=== PATIENT | male | born 1965 | race Caucasian/White ===

== ENCOUNTER 2016-10-05 06:33 | Day surgery (SDC) | payer MEDICAID ==
[~2016-10-05 06:33] MED LIST: ALBUMIN HUMAN 100 ML IV PRN
[2016-10-05 07:56] LABS: HEMATOCRIT 28.5 % (37.9-51.0); HEMOGLOBIN 9.8 g/dL (13.5-17.0); HGB HCT DIFFERENCE 0.9; MEAN CORPUSCULAR HEMOGLOBIN 31.3 pg (27.0-33.4); MEAN CORPUSCULAR HGB CONC 34.3 g/dL (32.0-36.0); MEAN CORPUSCULAR VOLUME 91 fl (80-97); RED BLOOD COUNT 3.13 10^6/uL (4.35-5.55); RED CELL DISTRIBUTION WIDTH 14.6 % (11.5-14.0); WHITE BLOOD COUNT 4.2 10^3/uL (4.0-10.5)
[2016-10-05 08:07] LABS: ANION GAP 11 (5-19); BLOOD UREA NITROGEN 25 mg/dL (7-20); CALCIUM 8.5 mg/dL (8.4-10.2); CARBON DIOXIDE 25 mmol/L (22-30); CHLORIDE 98 mmol/L (98-107); CREATININE RESULT 4.88 mg/dL (0.52-1.25); GLUCOSE 97 mg/dL (75-110); POTASSIUM 4.5 mmol/L (3.6-5.0); SODIUM 133.5 mmol/L (137-145)
[2016-10-05 08:08] LABS: PROTHROMBIN TIME 15.6 SEC (11.4-15.4)
[2016-10-05 08:09] LABS: PARTIAL THROMBOPLASTIN TIME 34.5 SEC (23.5-35.8)
[2016-10-05 13:21] VITALS: BP 116/50
== END 2016-10-05 12:30 | disposition home or self-care (01) ==
LOC: RAD 06:33
PROVIDERS: ATTEND Physician Assistant
PROC: 0W9F3ZZ Drainage of Abdominal Wall, Percutaneous Approach (ICD-10-PCS; principal; 2016-10-05)
DX: K70.31 Alcoholic cirrhosis of liver with ascites (principal); K72.90 Hepatic failure, unspecified without coma; N18.6 End stage renal disease; Z99.2 Dependence on renal dialysis; Z88.0 Allergy status to penicillin
CPT/HCPCS: 36415; 85027; 85610; 85730; 80048; 49083; P9047

== ENCOUNTER 2016-11-09 05:43 | Day surgery (SDC) | payer MEDICAID ==
[2016-11-09 06:45] LABS: HEMATOCRIT 28.8 % (37.9-51.0); HEMOGLOBIN 9.9 g/dL (13.5-17.0); HGB HCT DIFFERENCE 0.9; MEAN CORPUSCULAR HEMOGLOBIN 31.3 pg (27.0-33.4); MEAN CORPUSCULAR HGB CONC 34.4 g/dL (32.0-36.0); MEAN CORPUSCULAR VOLUME 91 fl (80-97); RED BLOOD COUNT 3.16 10^6/uL (4.35-5.55); RED CELL DISTRIBUTION WIDTH 15.8 % (11.5-14.0)
[2016-11-09 06:59] LABS: BLOOD UREA NITROGEN 38 mg/dL (7-20); CREATININE RESULT 5.73 mg/dL (0.52-1.25)
[2016-11-09 07:17] LABS: PROTHROMBIN TIME 15.7 SEC (11.4-15.4)
[2016-11-09 07:18] LABS: PARTIAL THROMBOPLASTIN TIME 35.8 SEC (23.5-35.8)
[2016-11-09] MEDS ORDERED: ALBUMIN HUMAN 50 ML IV SCH (12:30)
[2016-11-09 13:16] VITALS: BP 101/66
== END 2016-11-09 12:25 | disposition home or self-care (01) ==
LOC: RAD 05:43
PROVIDERS: ATTEND Internal Medicine Gastroenterology
PROC: 0W9G3ZZ Drainage of Peritoneal Cavity, Percutaneous Approach (ICD-10-PCS; principal; 2016-11-09)
DX: K70.31 Alcoholic cirrhosis of liver with ascites (principal); N18.6 End stage renal disease; F17.210 Nicotine dependence, cigarettes, uncomplicated; Z88.0 Allergy status to penicillin
CPT/HCPCS: 36415; 84520; 82565; 85027; 85610; 85730; 49083; P9047

== ENCOUNTER 2016-11-22 10:07 | Day surgery (SDC) | payer MEDICAID ==
[2016-11-22 11:30] LABS: HEMATOCRIT 31.7 % (37.9-51.0); HEMOGLOBIN 10.9 g/dL (13.5-17.0); MEAN CORPUSCULAR HEMOGLOBIN 31.2 pg (27.0-33.4); MEAN CORPUSCULAR HGB CONC 34.3 g/dL (32.0-36.0); MEAN CORPUSCULAR VOLUME 91 fl (80-97); RED BLOOD COUNT 3.49 10^6/uL (4.35-5.55); RED CELL DISTRIBUTION WIDTH 15.5 % (11.5-14.0); WHITE BLOOD COUNT 3.6 10^3/uL (4.0-10.5)
[2016-11-22 11:37] LABS: PROTHROMBIN TIME 15.2 SEC (11.4-15.4)
[2016-11-22 11:42] LABS: PARTIAL THROMBOPLASTIN TIME 34.7 SEC (23.5-35.8)
[2016-11-22 11:50] LABS: BLOOD UREA NITROGEN 33 mg/dL (7-20); CREATININE RESULT 5.64 mg/dL (0.52-1.25)
[2016-11-22] MEDS: ALBUMIN HUMAN 50 ML IV SCH ×2 (15:10→15:30)
[2016-11-22 16:47] VITALS: BP 98/50
== END 2016-11-22 16:30 | disposition home or self-care (01) ==
LOC: RAD 10:07
PROVIDERS: ATTEND Internal Medicine Gastroenterology
PROC: 0W9G3ZZ Drainage of Peritoneal Cavity, Percutaneous Approach (ICD-10-PCS; principal; 2016-11-22)
DX: K70.31 Alcoholic cirrhosis of liver with ascites (principal); N18.6 End stage renal disease; Z88.0 Allergy status to penicillin
CPT/HCPCS: 36415; 84520; 82565; 85027; 85610; 85730; 49083; P9047

== ENCOUNTER 2016-12-07 06:06 | Day surgery (SDC) | payer MEDICAID ==
[2016-12-07 06:55] LABS: HEMATOCRIT 30.9 % (37.9-51.0); HEMOGLOBIN 10.4 g/dL (13.5-17.0); HGB HCT DIFFERENCE 0.3; MEAN CORPUSCULAR HEMOGLOBIN 30.7 pg (27.0-33.4); MEAN CORPUSCULAR HGB CONC 33.8 g/dL (32.0-36.0); MEAN CORPUSCULAR VOLUME 91 fl (80-97); RED CELL DISTRIBUTION WIDTH 15.3 % (11.5-14.0); WHITE BLOOD COUNT 3.7 10^3/uL (4.0-10.5)
[2016-12-07 07:09] LABS: PROTHROMBIN TIME 15.4 SEC (11.4-15.4)
[2016-12-07 07:10] LABS: PARTIAL THROMBOPLASTIN TIME 37.3 SEC (23.5-35.8)
[2016-12-07 07:23] LABS: BLOOD UREA NITROGEN 37 mg/dL (7-20); CREATININE RESULT 6.28 mg/dL (0.52-1.25)
[2016-12-07] MEDS: ALBUMIN HUMAN 100 ML IV PRN ×2 (11:40→12:00)
[2016-12-07 14:02] VITALS: BP 101/38
== END 2016-12-07 12:35 | disposition home or self-care (01) ==
LOC: RAD 06:06
PROVIDERS: ATTEND Internal Medicine Gastroenterology
PROC: 0W9G3ZZ Drainage of Peritoneal Cavity, Percutaneous Approach (ICD-10-PCS; principal; 2016-12-07)
DX: K70.31 Alcoholic cirrhosis of liver with ascites (principal); Z79.899 Other long term (current) drug therapy
CPT/HCPCS: 36415; 84520; 82565; 85027; 85610; 85730; 49083; P9047

== ENCOUNTER 2016-12-16 06:23 | Day surgery (SDC) | payer MEDICAID ==
[2016-12-16 07:21] LABS: HEMATOCRIT 31.3 % (37.9-51.0); HEMOGLOBIN 10.5 g/dL (13.5-17.0); HGB HCT DIFFERENCE 0.2; MEAN CORPUSCULAR HEMOGLOBIN 30.9 pg (27.0-33.4); MEAN CORPUSCULAR HGB CONC 33.6 g/dL (32.0-36.0); MEAN CORPUSCULAR VOLUME 92 fl (80-97); RED CELL DISTRIBUTION WIDTH 15.3 % (11.5-14.0); WHITE BLOOD COUNT 4.1 10^3/uL (4.0-10.5)
[2016-12-16 07:31] LABS: BLOOD UREA NITROGEN 24 mg/dL (7-20); CREATININE RESULT 5.24 mg/dL (0.52-1.25); PROTHROMBIN TIME 14.6 SEC (11.4-15.4)
[2016-12-16] MEDS ORDERED: ALBUMIN HUMAN 100 ML IV PRN (11:12)
[2016-12-16 14:51] VITALS: BP 90/43
== END 2016-12-16 12:40 | disposition home or self-care (01) ==
LOC: RAD 06:23
PROVIDERS: ATTEND Internal Medicine Gastroenterology
PROC: 0W9F3ZZ Drainage of Abdominal Wall, Percutaneous Approach (ICD-10-PCS; principal; 2016-12-16)
DX: K70.31 Alcoholic cirrhosis of liver with ascites (principal); N18.6 End stage renal disease; Z88.0 Allergy status to penicillin
CPT/HCPCS: 36415; 84520; 82565; 85027; 85610; 85730; 49083; P9047

== ENCOUNTER 2016-12-30 05:55 | Day surgery (SDC) | payer MEDICAID ==
[2016-12-30 08:20] LABS: HEMOGLOBIN 10.3 g/dL (13.5-17.0); HGB HCT DIFFERENCE 0.9; MEAN CORPUSCULAR HEMOGLOBIN 31.2 pg (27.0-33.4); MEAN CORPUSCULAR HGB CONC 34.2 g/dL (32.0-36.0); MEAN CORPUSCULAR VOLUME 91 fl (80-97); RED CELL DISTRIBUTION WIDTH 15.3 % (11.5-14.0); WHITE BLOOD COUNT 4.8 10^3/uL (4.0-10.5)
[2016-12-30 08:38] LABS: BLOOD UREA NITROGEN 29 mg/dL (7-20); CREATININE RESULT 5.86 mg/dL (0.52-1.25)
[2016-12-30 09:02] LABS: PROTHROMBIN TIME 14.6 SEC (11.4-15.4)
[2016-12-30 09:03] LABS: PARTIAL THROMBOPLASTIN TIME 34.1 SEC (23.5-35.8)
[2016-12-30] MEDS: ALBUMIN HUMAN 50 ML IV SCH ×2 (11:45→12:10)
[2016-12-30 14:01] VITALS: BP 100/47
== END 2016-12-30 12:45 | disposition home or self-care (01) ==
LOC: RAD 05:55
PROVIDERS: ATTEND Internal Medicine Gastroenterology
PROC: 0W9G3ZZ Drainage of Peritoneal Cavity, Percutaneous Approach (ICD-10-PCS; principal; 2016-12-30)
DX: K70.31 Alcoholic cirrhosis of liver with ascites (principal); Z88.0 Allergy status to penicillin
CPT/HCPCS: 36415; 84520; 82565; 85027; 85610; 85730; 49083; P9047

== ENCOUNTER 2017-01-13 06:11 | Day surgery (SDC) | payer MEDICAID ==
[2017-01-13 06:25] LABS: HEMATOCRIT 32.4 % (37.9-51.0); HGB HCT DIFFERENCE 0.6; MEAN CORPUSCULAR HEMOGLOBIN 31.4 pg (27.0-33.4); MEAN CORPUSCULAR VOLUME 92 fl (80-97); RED BLOOD COUNT 3.51 10^6/uL (4.35-5.55); RED CELL DISTRIBUTION WIDTH 15.8 % (11.5-14.0); WHITE BLOOD COUNT 3.9 10^3/uL (4.0-10.5)
[2017-01-13 06:39] LABS: BLOOD UREA NITROGEN 29 mg/dL (7-20); CREATININE RESULT 6.53 mg/dL (0.52-1.25)
[2017-01-13 06:43] LABS: PARTIAL THROMBOPLASTIN TIME 39.3 SEC (23.5-35.8)
[2017-01-13] MEDS ORDERED: ALBUMIN HUMAN 50 ML IV SCH (12:00)
[2017-01-13 12:40] VITALS: BP 105/47
== END 2017-01-13 12:30 | disposition home or self-care (01) ==
LOC: RAD 06:11
PROVIDERS: ATTEND Internal Medicine Gastroenterology
PROC: 0W9G3ZZ Drainage of Peritoneal Cavity, Percutaneous Approach (ICD-10-PCS; principal; 2017-01-13)
DX: K70.31 Alcoholic cirrhosis of liver with ascites (principal); N18.6 End stage renal disease; Z88.0 Allergy status to penicillin
CPT/HCPCS: 36415; 84520; 82565; 85027; 85610; 85730; 49083; P9047

== ENCOUNTER 2017-01-19 09:10 | Emergency (ER) | payer MEDICAID ==
[2017-01-19] MEDS ORDERED: AZITHROMYCIN 250 MG TABLET PO ONE (09:35)
[2017-01-19] MEDS ORDERED: CEFTRIAXONE INJ 250 MG VIAL IM ONE (09:35)
[2017-01-19] MEDS ORDERED: LIDOCAINE 1% INJ-PF (10 MG/ML) 30 ML SDV INJ ONE (09:36)
--- NOTE | 2017-01-19 10:10 | ER Document Report ---
ED Cardiac - General Chief Complaint: Chest Tightness Stated Complaint: CHEST PAIN Mode of Arrival: Ambulatory Information source: Patient Notes: Patient states that he was at dialysis today and developed chest tightness around 8:15 this morning that lasted 30 minutes. Patient states that by the time they removed his IV per dialysis that his symptoms completely resolved. Patient states he has had a mild cough area patient denies any vomiting, fever, or shortness of breath. Patient does have a history of cirrhosis as well as end -stage renal disease with dialysis. Patient states he is attempting to get placed on a liver transplant list and is awaiting medical clearance. TRAVEL OUTSIDE OF THE [place] IN LAST 30 DAYS: No - HPI Patient complains to provider of: Chest tightness. denies: Shortness of breath Chest pain location: Substernal Quality of pain: Tightness Severity now: Mild Pain level currently: Denies Chest pain precipitating factors: At Rest Cardiac risk factors: denies: Smoker, Hx PA Associated symptoms: denies: Abdominal pain, Back pain, Dizziness, Lightheaded, Nausea/vomiting, Shortness of breath Exacerbated by: Denies Relieved by: Nothing Similar symptoms previously: No Recently seen / treated by doctor: Yes - recent outpatient echocardiogram - Related Data Allergies/Adverse Reactions: povidone-iodine [From Betadine] Allergy (Verified 10/05/16 07:28) soap [From Betadine] Allergy (Verified 10/05/16 07:28) Penicillins Adverse Reaction (Verified 10/05/16 07:28) "some kind of dialysis filter" Allergy (Uncoded 10/05/16 07:28) Past Medical History - General Information source: Patient - Social History Smoking Status: Never Smoker Frequency of alcohol use: None Drug Abuse: None Lives with: Family Family History: CAD, DM, Malignancy - Mother uterine cancer. - Past Medical History Cardiac Medical History: Denies: Hx Coronary Artery Disease, Hx Heart Attack, Hx Hypertension - hypotension Pulmonary Medical History: Reports: Hx Asthma - as a child, Hx Pneumonia - 2015 Denies: Hx Bronchitis, Hx COPD Neurological Medical History: Denies: Hx Cerebrovascular Accident, Hx Seizures Renal/ Medical History: Reports: Hx End Stage Renal Disease, Hx Hemodialysis GI Medical History: Reports: Hx Cirrhosis, Hx Liver Failure Musculoskeltal Medical History: Denies Hx Arthritis Past Surgical History: Reports: Hx Herniorrhaphy - Immunizations Hx Diphtheria, Pertussis, Tetanus Vaccination: No Hx Pneumococcal Vaccination: 05/26/16 Review of Systems - Review of Systems Constitutional: Recent illness - Mild cough. denies: Fever EENT: No symptoms reported Cardiovascular: Chest pain - For 30 minutes started at 8:15, Other - Patient states that he has chronic hypotension and frequently will have blood pressures 80/40. Patient denies lightheadedness or dizziness with his blood pressure. Patient states he does take medication to correct his blood pressure.. denies: Dizziness Respiratory: Cough. denies: Short of breath Gastrointestinal: Nausea. denies: Abdominal pain, Vomiting Genitourinary: No symptoms reported. denies: Dysuria, Flank pain Male Genitourinary: No symptoms reported Musculoskeletal: No symptoms reported. denies: Back pain Skin: No symptoms reported Hematologic/Lymphatic: No symptoms reported Neurological/Psychological: No symptoms reported Physical Exam - Vital signs Vitals: Resp Pulse Ox 18 98 01/19/17 09:32 01/19/17 09:32 - General General appearance: Appears well, Alert In distress: None - HEENT Head: Normocephalic, Atraumatic Eyes: Normal Conjunctiva: Icteric - BUN/creatinine mildly icteric conjunctiva Nasal: Normal Mouth/Lips: Normal Mucous membranes: Normal Pharynx: Normal Neck: Normal, Supple. No: Lymphadenopathy - Respiratory Respiratory status: No respiratory distress Chest status: Nontender Breath sounds: Normal. No: Rales, Rhonchi, Stridor, Wheezing Chest palpation: Normal - Cardiovascular Rhythm: Regular Heart sounds: S1 appreciated, S2 appreciated Murmur: Yes Systolic murmur grade 1-6: 3 - Abdominal Inspection: Caput medussa - mild Distension: Distended Bowel sounds: Normal Tenderness: Nontender Organomegaly: No organomegaly - Back Back: Normal, Nontender. No: CVA tenderness, Vertebra tenderness - Extremities General upper extremity: Normal inspection, Normal ROM. No: Edema General lower extremity: Normal inspection, Normal ROM. No: Edema - Neurological Neuro grossly intact: Yes Cognition: Normal Orientation: AAOx4 Odilia Coma Scale Eye Opening: Spontaneous [place] Coma Scale Verbal: Oriented [place] Coma Scale Motor: Obeys Commands [place] Coma Scale Total: 15 - Psychological Associated symptoms: Normal affect, Normal mood - Skin Skin Temperature: Warm Skin Moisture: Dry Skin Color: Normal Course - Re-evaluation Re-evalutation: 01/19/17 10:[address] Myers regarding patient presentation, reviewed patient's history as well as vital signs. Recommends IV bolus of normal saline 250 mg with plan diagnostic evaluation this time. 01/19/17 11:55 Patient resting comfortably in room, denies any problems or complaints. 01/19/17 13:00 Reviewed patient's diagnostic test results with Dr. Myers. Agrees with plan for repeat troponin testing. States that supplemental potassium could be given here but does not have to be given; as this is a consistent finding with his most recent dialysis treatment today. Discussed diagnostic results with patient and his spouse. Patient currently eating a lunch tray, denies any chest pain or complaints at this time. Reviewed patient's electrolytes. Patient and state that his doctor has been following his lab tests and at this time they would not like to give any supplemental potassium would prefer to just increase potassium in his diet 01/19/17 15:03 Consulted with patient's spring floor service worker and discussed patient's results of his diagnostic test results here today as well as his recent echocardiogram performed [address] Kahn orders. Patient's spring floor service worker, Dr. Kahn at [facility] states that patient's ejection fraction is in the 60s and that it noted some ascites and a pleural effusion. Dr. Kahn also states that patient has a mixed flow, aortic valve disease with aortic stenosis. Advises having patient to notify his doctor at [facility] when he goes to have his surgery that he will need to have cardiology consultation prior to his surgery given his echocardiogram findings. Suspects that patient's echocardiogram findings will likely preclude him from being placed on any transplant list. Patient continues asymptomatic, vital signs stable for patient. Patient's spring floor service worker states that patient will typically run even lower than 90s over 40s , and this is stable for him. Dr. Myers agrees with discharge plan of care. - Vital Signs Vital signs: Temp Pulse Resp BP Pulse Ox 98.3 F 19 100/47 L 97 01/19/17 16:02 01/19/17 16:02 01/19/17 16:02 01/19/17 16:02 - Laboratory Result Diagrams: 01/19/17 10:27 01/19/17 10:27 Laboratory results interpreted by me: 01/19/17 01/19/17 01/19/17 10:27 10:27 10:27 WBC 3.4 L RBC 3.42 L Hgb 10.7 L Hct 31.4 L RDW 16.1 H Plt Count 137 L Monocytes % 18.4 H Basophils % 2.2 H Absolute Neutrophils 1.6 L APTT Potassium 2.9 L* BUN 32 H Creatinine 5.47 H Est GFR ( Amer) 13 L Est GFR (Non-Af Amer) 11 L Total Bilirubin 1.4 H Direct Bilirubin 0.9 H Alkaline Phosphatase 177 H Ammonia Creatine Kinase 36 L NT-Pro-B Natriuret Pep 6980 H Albumin 2.9 L 01/19/17 01/19/17 10:27 11:20 WBC RBC Hgb Hct RDW Plt Count Monocytes % Basophils % Absolute Neutrophils APTT 36.7 H Potassium BUN Creatinine Est GFR ( Amer) Est GFR (Non-Af Amer) Total Bilirubin Direct Bilirubin Alkaline Phosphatase Ammonia 77.1 H Creatine Kinase NT-Pro-B Natriuret Pep Albumin Labs- Entire Visit 01/19/17 01/19/17 01/19/17 10:27 10:27 10:27 WBC 3.4 L RBC 3.42 L Hgb 10.7 L Hct 31.4 L MCV 92 MCH 31.2 MCHC 34.1 RDW 16.1 H Plt Count 137 L Seg Neutrophils % 48.0 Lymphocytes % 26.6 Monocytes % 18.4 H Eosinophils % 4.8 Basophils % 2.2 H Absolute Neutrophils 1.6 L Absolute Lymphocytes 0.9 Absolute Monocytes 0.6 Absolute Eosinophils 0.2 Absolute Basophils 0.1 PT INR APTT Sodium 141.9 Potassium 2.9 L* Chloride 100 Carbon Dioxide 27 Anion Gap 15 BUN 32 H Creatinine 5.47 H Est GFR ( Amer) 13 L Est GFR (Non-Af Amer) 11 L Glucose 92 Calcium 8.5 Total Bilirubin 1.4 H Direct Bilirubin 0.9 H Indirect Bilirubin Not Reportable Neonat Total Bilirubin Not Reportable AST 32 ALT 22 Alkaline Phosphatase 177 H Ammonia Creatine Kinase 36 L CK-MB (CK-2) 1.47 Troponin I < 0.012 NT-Pro-B Natriuret Pep 6980 H Total Protein 6.3 Albumin 2.9 L Lipase 260.6 01/19/17 01/19/17 01/19/17 10:27 11:20 14:03 WBC RBC Hgb Hct MCV MCH MCHC RDW Plt Count Seg Neutrophils % Lymphocytes % Monocytes % Eosinophils % Basophils % Absolute Neutrophils Absolute Lymphocytes Absolute Monocytes Absolute Eosinophils Absolute Basophils PT 15.2 INR 1.16 APTT 36.7 H Sodium Potassium Chloride Carbon Dioxide Anion Gap BUN Creatinine Est GFR ( Amer) Est GFR (Non-Af Amer) Glucose Calcium Total Bilirubin Direct Bilirubin Indirect Bilirubin Neonat Total Bilirubin AST ALT Alkaline Phosphatase Ammonia 77.1 H Creatine Kinase CK-MB (CK-2) Troponin I < 0.012 NT-Pro-B Natriuret Pep Total Protein Albumin Lipase 01/19/17 15:14 01/19/17 19:56 - Diagnostic Test Radiology reviewed: Reports reviewed Discharge - Discharge Clinical Impression: Hx of hypotension, History of end stage renal disease, Chest pain of uncertain etiology Pneumonia Qualifiers: Pneumonia type: due to unspecified organism Laterality: left Lung location: unspecified part of lung Qualified Code(s): J18.9 - Pneumonia, unspecified organism Condition: Stable Disposition: HOME, SELF-CARE Instructions: Chest Pain of Unclear Cause ([facility]), Hypotension ([facility]), Pneumonia ( [facility]), Doxycycline ([facility]) Additional Instructions: Return immediately for any new or worsening symptoms Followup with your primary care provider, call tomorrow to make a followup appointment Follow-up with your spring floor service worker for recheck, call today to make a follow-up appointment. Your spring floor service worker once you to be sure to tell your doctor at [facility] when you go for your surgery he will need to be evaluated by cardiology there due to your echocardiogram findings. Prescriptions: Doxycycline Hyclate 100 mg PO BID #20 capsule Referrals: CRAIG REYES MD [Primary Care Provider] - Follow up as needed MILADY TOURE MD [ACTIVE STAFF] - Follow up tomorrow
[2017-01-19] MEDS ORDERED: NORMAL SALINE 1000 ML 250 ML IV ONE (10:57)
[2017-01-19 11:17] LABS: ABSOLUTE BASOPHILS # (AUTO) 0.1 10^3/uL (0.0-0.2); ABSOLUTE EOSINOPHILS # (AUTO) 0.2 10^3/uL (0.0-0.6); ABSOLUTE LYMPHOCYTES (AUTO) 0.9 10^3/uL (0.5-4.7); ABSOLUTE MONOCYTES (AUTO) 0.6 10^3/uL (0.1-1.4); ABSOLUTE NEUT (AUTO) 1.6 10^3/uL (1.7-8.2); BASOPHILS % (AUTO) 2.2 % (0-2); EOSINOPHILS % (AUTO) 4.8 % (0-6); HEMATOCRIT 31.4 % (37.9-51.0); HEMOGLOBIN 10.7 g/dL (13.5-17.0); HGB HCT DIFFERENCE 0.7; LYMPHOCYTES % (AUTO) 26.6 % (13-45); MEAN CORPUSCULAR HEMOGLOBIN 31.2 pg (27.0-33.4); MEAN CORPUSCULAR HGB CONC 34.1 g/dL (32.0-36.0); MEAN CORPUSCULAR VOLUME 92 fl (80-97); MONOCYTES % (AUTO) 18.4 % (3-13); RED BLOOD COUNT 3.42 10^6/uL (4.35-5.55); RED CELL DISTRIBUTION WIDTH 16.1 % (11.5-14.0); WHITE BLOOD COUNT 3.4 10^3/uL (4.0-10.5)
[2017-01-19 11:24] LABS: PROTHROMBIN TIME 15.2 SEC (11.4-15.4)
[2017-01-19 11:25] LABS: PARTIAL THROMBOPLASTIN TIME 36.7 SEC (23.5-35.8)
[2017-01-19 11:40] LABS: ALANINE AMINOTRANSFERASE 22 U/L (21-72); ALBUMIN 2.9 g/dL (3.5-5.0); ALKALINE PHOSPHATASE 177 U/L (38-126); ANION GAP 15 (5-19); ASPARTATE AMINO TRANSFERASE 32 U/L (17-59); BILIRUBIN,DIRECT 0.9 mg/dL (0.0-0.4); BILIRUBIN,TOTAL 1.4 mg/dL (0.2-1.3); BLOOD UREA NITROGEN 32 mg/dL (7-20); CALCIUM 8.5 mg/dL (8.4-10.2); CARBON DIOXIDE 27 mmol/L (22-30); CHLORIDE 100 mmol/L (98-107); CREATINE KINASE 36 U/L (55-170); CREATININE RESULT 5.47 mg/dL (0.52-1.25); GLUCOSE 92 mg/dL (75-110); LIPASE 260.6 U/L (23-300); SODIUM 141.9 mmol/L (137-145); TOTAL PROTEIN 6.3 g/dL (6.3-8.2)
[2017-01-19 11:53] LABS: CREATINE KINASE MB 1.47 ng/mL (<4.55)
[2017-01-19 11:55] LABS: TROPONIN I < 0.012 ng/mL
[2017-01-19 12:08] LABS: POTASSIUM 2.9 mmol/L (3.6-5.0)
[2017-01-19] MEDS ORDERED: DOXYCYCLINE HYCLATE 100 MG TABLET PO ONE (12:53)
--- NOTE | 2017-01-19 14:23 | EKG REPORT ---
SEVERITY:- ABNORMAL ECG - SINUS RHYTHM PROBABLE LEFT VENTRICULAR HYPERTROPHY PROLONGED QT INTERVAL : Confirmed by: Brittany Nava 19-Jan-2017 14:22:29
[2017-01-19 16:06] VITALS: BP 100/47
== END 2017-01-19 16:06 | disposition home or self-care (01) ==
LOC: ER 09:10
DX: J18.9 Pneumonia, unspecified organism (principal); R07.9 Chest pain, unspecified; R05 Cough; N18.6 End stage renal disease; Z99.2 Dependence on renal dialysis; K74.60 Unspecified cirrhosis of liver; I10 Essential (primary) hypertension
CPT/HCPCS: 93005; 99285; 96360; 36415; 82553; 82140; 82550; 83690; 85025; 85610; 85730; 80053; 84484; 83880; 71010; 93010; J3490; J7030

== ENCOUNTER 2017-01-27 05:50 | Day surgery (SDC) | payer MEDICAID ==
[2017-01-27 06:21] LABS: HEMATOCRIT 31.2 % (37.9-51.0); HEMOGLOBIN 10.8 g/dL (13.5-17.0); HGB HCT DIFFERENCE 1.2; MEAN CORPUSCULAR HEMOGLOBIN 31.7 pg (27.0-33.4); MEAN CORPUSCULAR HGB CONC 34.5 g/dL (32.0-36.0); MEAN CORPUSCULAR VOLUME 92 fl (80-97); RED CELL DISTRIBUTION WIDTH 15.7 % (11.5-14.0); WHITE BLOOD COUNT 5.2 10^3/uL (4.0-10.5)
[2017-01-27 06:25] LABS: PROTHROMBIN TIME 14.6 SEC (11.4-15.4)
[2017-01-27 06:48] LABS: BLOOD UREA NITROGEN 50 mg/dL (7-20); CREATININE RESULT 6.31 mg/dL (0.52-1.25)
[2017-01-27] MEDS ORDERED: DEXTROSE 5%-1/2 NORMAL SALINE 1,000 ML IV PRN (10:41)
[2017-01-27] MEDS ORDERED: ALBUMIN HUMAN 50 ML IV PRN (12:00)
[2017-01-27 13:36] VITALS: BP 108/44
== END 2017-01-27 12:30 | disposition home or self-care (01) ==
LOC: RAD 05:50
PROVIDERS: ATTEND Nurse Practitioner
PROC: 0W9G3ZZ Drainage of Peritoneal Cavity, Percutaneous Approach (ICD-10-PCS; principal; 2017-01-27)
DX: K70.31 Alcoholic cirrhosis of liver with ascites (principal); Z88.0 Allergy status to penicillin
CPT/HCPCS: 36415; 84520; 82565; 85027; 85610; 85730; 49083; P9047

== ENCOUNTER → 2017-02-06 | Outpatient (CLI) | payer MEDICAID | LOC: OD 10:54 | PROVIDERS: ATTEND Family Medicine | DX: R05 Cough (principal); J90 Pleural effusion, not elsewhere classified | CPT/HCPCS: 71020 ==

== ENCOUNTER 2017-02-08 05:53 | Day surgery (SDC) | payer MEDICAID ==
[2017-02-09 10:14] LABS: HEMATOCRIT 32.1 % (37.9-51.0); HEMOGLOBIN 10.6 g/dL (13.5-17.0); HGB HCT DIFFERENCE -0.3; MEAN CORPUSCULAR HEMOGLOBIN 31.5 pg (27.0-33.4); MEAN CORPUSCULAR VOLUME 95 fl (80-97); RED BLOOD COUNT 3.36 10^6/uL (4.35-5.55); RED CELL DISTRIBUTION WIDTH 16.2 % (11.5-14.0); WHITE BLOOD COUNT 5.2 10^3/uL (4.0-10.5)
[2017-02-09 11:39] LABS: PARTIAL THROMBOPLASTIN TIME 37.7 SEC (23.5-35.8); PROTHROMBIN TIME 15.3 SEC (11.4-15.4)
[2017-02-09 17:01] LABS: BLOOD UREA NITROGEN 30 mg/dL (7-20); CREATININE RESULT 5.77 mg/dL (0.52-1.25)
== END 2017-02-08 13:00 | disposition home or self-care (01) ==
LOC: RAD 05:53
PROVIDERS: ATTEND Internal Medicine Gastroenterology
PROC: 0W9G3ZZ Drainage of Peritoneal Cavity, Percutaneous Approach (ICD-10-PCS; principal; 2017-02-08)
DX: K70.31 Alcoholic cirrhosis of liver with ascites (principal)
CPT/HCPCS: 36415; 49083; 82565; 84520; 85027; 85610; 85730

== ENCOUNTER 2017-02-11 16:12 | Emergency (ER) | payer MEDICAID ==
--- NOTE | 2017-02-11 16:56 | ER Document Report ---
ED Respiratory Problem - General Chief Complaint: Shortness Of Breath Stated Complaint: DIFFICULTY BREATHING Time Seen by Provider: 02/11/17 16:26 Mode of Arrival: Ambulatory Information source: Patient Notes: Patient presents complaining of productive cough for the past 3 weeks. Patient states that he was short of breath and having difficulty breathing this afternoon which prompted his visit. Patient states that the difficulty breathing has now resolved although he does still have occasionally productive cough. Patient recently finished a azithromycin yesterday. Denies any fever. Patient does state that he had dialysis this morning and he had a paracentesis on Monday of this week in which they removed 7.5 L. Patient does have a history of liver failure as well as kidney failure and is attempting to get on a liver transplant list although he first has to have structural heart surgery to correct a valve problem. TRAVEL OUTSIDE OF THE [place] IN LAST 30 DAYS: No - HPI Patient complains to provider of: Cough, Short of breath - earlier today, now resolved. No: Chest pain Onset: Other - cough x 3 wks, sob earlier today Duration: Better Quality of pain: No pain Pain Level: Denies Context: denies: Recent immobilization, Recent surgery, Smoker Cough: Productive Sputum amount: Small Associated symptoms: Difficulty breathing, Short of breath. denies: Bloody cough, Chest pain/discomfort, Fever Similar symptoms previously: Yes Recently seen / treated by doctor: No - Related Data Allergies/Adverse Reactions: povidone-iodine [From Betadine] Allergy (Verified 02/11/17 16:19) soap [From Betadine] Allergy (Verified 02/11/17 16:19) Penicillins Adverse Reaction (Verified 02/11/17 16:19) "some kind of dialysis filter" Allergy (Uncoded 02/11/17 16:19) Past Medical History - General Information source: Patient - Social History Smoking Status: Never Smoker Frequency of alcohol use: None Drug Abuse: None Occupation: none Lives with: Family Family History: CAD, DM, Malignancy - Mother uterine cancer. Patient has suicidal ideation: No Patient has homicidal ideation: No - Past Medical History Cardiac Medical History: Reports: Hx Heart Murmur Denies: Hx Coronary Artery Disease, Hx Heart Attack, Hx Hypertension - hypotension Pulmonary Medical History: Reports: Hx Asthma - as a child, Hx Pneumonia - 2015 Denies: Hx Bronchitis, Hx COPD Neurological Medical History: Denies: Hx Cerebrovascular Accident, Hx Seizures Renal/ Medical History: Reports: Hx End Stage Renal Disease, Hx Hemodialysis. Denies: Hx Peritoneal Dialysis GI Medical History: Reports: Hx Cirrhosis, Hx Liver Failure Musculoskeltal Medical History: Denies Hx Arthritis Past Surgical History: Reports: Hx Herniorrhaphy - Immunizations Hx Diphtheria, Pertussis, Tetanus Vaccination: No Hx Pneumococcal Vaccination: 05/26/16 Review of Systems - Review of Systems Constitutional: Recent illness - recently treated with z pack for cough. denies : Fever EENT: No symptoms reported Cardiovascular: Dyspnea. denies: Chest pain Respiratory: Cough, Short of breath - now resolved Gastrointestinal: No symptoms reported. denies: Abdominal pain, Nausea, Vomiting Genitourinary: No symptoms reported Male Genitourinary: No symptoms reported Musculoskeletal: No symptoms reported. denies: Back pain Skin: No symptoms reported Hematologic/Lymphatic: No symptoms reported Neurological/Psychological: No symptoms reported Physical Exam - Vital signs Vitals: Temp Pulse Resp BP Pulse Ox 99.3 F 94 18 116/38 L 95 02/11/17 16:20 02/11/17 16:20 02/11/17 16:20 02/11/17 16:20 02/11/17 16:20 - General General appearance: Alert Notes: chronically ill appearance - HEENT Head: Normocephalic, Atraumatic Eyes: Normal Nasal: Normal Mouth/Lips: Normal Mucous membranes: Normal Neck: Normal, Supple. No: Lymphadenopathy - Respiratory Respiratory status: No respiratory distress Chest status: Nontender Breath sounds: Nonproductive cough Chest palpation: Normal - Cardiovascular Rhythm: Regular Heart sounds: S1 appreciated, S2 appreciated Murmur: Yes Friction rub: No - Abdominal Inspection: Caput medussa Distension: No distension Bowel sounds: Normal Tenderness: Nontender - Back Back: Normal, Nontender. No: CVA tenderness, Vertebra tenderness - Extremities General upper extremity: Normal inspection, Normal strength General lower extremity: Normal inspection, Normal strength - Neurological Neuro grossly intact: Yes Cognition: Normal Odilia Coma Scale Eye Opening: Spontaneous [place] Coma Scale Verbal: Oriented [place] Coma Scale Motor: Obeys Commands [place] Coma Scale Total: 15 - Psychological Associated symptoms: Normal affect, Normal mood - Skin Skin Temperature: Warm Skin Moisture: Dry Skin Color: Normal Course - Re-evaluation Re-evalutation: 02/11/17 19:[address] Zendejas who reviewed pt's cxr and compared it to his most recent cxr performed 5 days prior. Patient ambulated in the bautista, heart rate remained in the 90s, oxygen saturation remained above 95%. Patient without any increased respiratory effort. Dr. Jo to bedside for examination. Pt states that he had a coughing fit a few minutes prior, but denies any chest pain at this time. Resp unlabored. 02/11/17 19:08 Dr Jo examined pt, recommends discharge home with rx for levaquin. No additional testing advised at this time. - Vital Signs Vital signs: Temp Pulse Resp BP Pulse Ox 98.2 F 94 14 95/38 L 94 02/11/17 17:46 02/11/17 16:20 02/11/17 17:47 02/11/17 17:46 02/11/17 17:47 - Laboratory Result Diagrams: 02/11/17 17:10 02/11/17 17:10 Laboratory results interpreted by me: 02/11/17 02/11/17 02/11/17 17:10 17:10 17:10 RBC 3.60 L Hgb 11.2 L Hct 33.1 L RDW 15.3 H Monocytes % 19.7 H Sodium 133.6 L Potassium 3.2 L BUN 21 H Creatinine 4.88 H Est GFR ( Amer) 15 L Est GFR (Non-Af Amer) 13 L Calcium 8.0 L Total Bilirubin 2.0 H Direct Bilirubin 1.2 H Alkaline Phosphatase 161 H Ammonia 54.4 H Creatine Kinase 35 L NT-Pro-B Natriuret Pep Total Protein 6.2 L Albumin 2.7 L 02/11/17 17:10 RBC Hgb Hct RDW Monocytes % Sodium Potassium BUN Creatinine Est GFR ( Amer) Est GFR (Non-Af Amer) Calcium Total Bilirubin Direct Bilirubin Alkaline Phosphatase Ammonia Creatine Kinase NT-Pro-B Natriuret Pep 9440 H Total Protein Albumin reviewed pt's labs from outpt visits this month - Diagnostic Test Radiology reviewed: Image reviewed, Reports reviewed Discharge - Discharge Clinical Impression: Cough, Pleural effusion, History of liver failure, History of end stage renal disease Condition: Stable Disposition: HOME, SELF-CARE Instructions: Pneumonia ([facility]), Antibiotic Therapy ([facility]) Additional Instructions: Return immediately for any new or worsening symptoms Followup with your primary care provider, call Monday to make a followup appointment Prescriptions: Benzonatate [Tessalon Perle 100 mg Capsule] 100 mg PO Q8HP PRN #20 cap PRN Reason: Levofloxacin [Levaquin 250 mg Tablet] 250 mg PO ASDIR #5 tablet Referrals: CRAIG REYES MD [Primary Care Provider] - 02/13/17
[2017-02-11 17:24] LABS: ABSOLUTE BASOPHILS # (AUTO) 0.1 10^3/uL (0.0-0.2); ABSOLUTE EOSINOPHILS # (AUTO) 0.2 10^3/uL (0.0-0.6); ABSOLUTE MONOCYTES (AUTO) 1.2 10^3/uL (0.1-1.4); ABSOLUTE NEUT (AUTO) 3.8 10^3/uL (1.7-8.2); BASOPHILS % (AUTO) 1.4 % (0-2); EOSINOPHILS % (AUTO) 2.7 % (0-6); HEMATOCRIT 33.1 % (37.9-51.0); HEMOGLOBIN 11.2 g/dL (13.5-17.0); HGB HCT DIFFERENCE 0.5; LYMPHOCYTES % (AUTO) 15.4 % (13-45); MEAN CORPUSCULAR HEMOGLOBIN 31.1 pg (27.0-33.4); MEAN CORPUSCULAR HGB CONC 33.7 g/dL (32.0-36.0); MEAN CORPUSCULAR VOLUME 92 fl (80-97); MONOCYTES % (AUTO) 19.7 % (3-13); RED CELL DISTRIBUTION WIDTH 15.3 % (11.5-14.0); SEGMENTED NEUTROPHILS % (AUTO) 60.8 % (42-78); WHITE BLOOD COUNT 6.2 10^3/uL (4.0-10.5)
[2017-02-11 17:40] LABS: ALANINE AMINOTRANSFERASE 22 U/L (21-72); ALBUMIN 2.7 g/dL (3.5-5.0); ALKALINE PHOSPHATASE 161 U/L (38-126); ANION GAP 9 (5-19); ASPARTATE AMINO TRANSFERASE 28 U/L (17-59); BILIRUBIN,DIRECT 1.2 mg/dL (0.0-0.4); BLOOD UREA NITROGEN 21 mg/dL (7-20); CARBON DIOXIDE 27 mmol/L (22-30); CHLORIDE 98 mmol/L (98-107); CREATINE KINASE 35 U/L (55-170); CREATININE RESULT 4.88 mg/dL (0.52-1.25); GLUCOSE 97 mg/dL (75-110); MAGNESIUM 2.2 mg/dL (1.6-2.3); POTASSIUM 3.2 mmol/L (3.6-5.0); SODIUM 133.6 mmol/L (137-145); TOTAL PROTEIN 6.2 g/dL (6.3-8.2)
[2017-02-11 17:41] LABS: PARTIAL THROMBOPLASTIN TIME 35.3 SEC (23.5-35.8); PROTHROMBIN TIME 15.3 SEC (11.4-15.4)
--- NOTE | 2017-02-11 17:47 | EKG REPORT ---
SEVERITY:- BORDERLINE ECG - SINUS RHYTHM BORDERLINE LEFT AXIS DEVIATION BORDERLINE T WAVE ABNORMALITIES BORDERLINE PROLONGED QT INTERVAL : Confirmed by: Lindsey Magallon MD 11-Feb-2017 17:45:47
[2017-02-11 17:52] LABS: CREATINE KINASE MB 1.14 ng/mL (<4.55)
[2017-02-11 17:56] LABS: TROPONIN I < 0.012 ng/mL
[2017-02-11] MEDS ORDERED: LEVOFLOXACIN 500 MG TABLET PO ONE (19:11)
[2017-02-11 19:57] VITALS: BP 94/38
== END 2017-02-11 19:56 | disposition home or self-care (01) ==
LOC: ER 16:12
DX: N18.6 End stage renal disease (principal); Z99.2 Dependence on renal dialysis; J90 Pleural effusion, not elsewhere classified; K72.90 Hepatic failure, unspecified without coma; I38 Endocarditis, valve unspecified; R05 Cough; Z98.890 Other specified postprocedural states; Z88.3 Allergy status to other anti-infective agents
CPT/HCPCS: 93005; 99285; 36415; 87040; 82553; 82140; 82550; 83735; 85025; 85610; 85730; 80053; 84484; 83880; 71020; 93010; J3490

== ENCOUNTER → 2017-03-13 | Outpatient (CLI) | payer MEDICAID ==
--- NOTE | 2017-03-13 10:04 | RADIOLOGY REPORT (SQ) ---
EXAM DESCRIPTION: CHEST PA/LATERAL COMPLETED DATE/TIME: 03/13/2017 9:03 am REASON FOR STUDY: COUGH COMPARISON: Chest films 05/10/2016, 08/05/2016, 09/15/2016, 01/19/2017, 02/06/2017, 02/11/2017 EXAM PARAMETERS: NUMBER OF VIEWS: two views TECHNIQUE: Digital Frontal and Lateral radiographic views of the chest acquired. RADIATION DOSE: NA LIMITATIONS: none FINDINGS: LUNGS AND PLEURA: Chronic stable blunting of the left posterior and lateral costophrenic s ulcus over series exams, with adjacent lung parenchymal scarring. No acute infiltrates. No right pleural effusion or pleural thickening. No right or left pneumothora x. MEDIASTINUM AND HILAR STRUCTURES: No masses or contour abnormalities. HEART AND VASCULAR STRUCTURES: Heart normal size. No evidence for failure. BONES: Biconcave compression deformities in the upper lumbar spine are stable HARDWARE: None in the chest. OTHER: No other significant finding. IMPRESSION: Chronic blunting left lateral and posterior costophrenic sulcus with adjacent lung paren chymal scarring. No acute changes TECHNICAL DOCUMENTATION: JOB ID: [id number]- All Rights Reserved
== END ==
LOC: OD 08:49
PROVIDERS: ATTEND Physician Assistant
DX: R05 Cough (principal)
CPT/HCPCS: 71020

== ENCOUNTER 2017-03-17 05:50 | Day surgery (SDC) | payer MEDICAID ==
[2017-03-17 06:21] LABS: HEMATOCRIT 28.8 % (37.9-51.0); HEMOGLOBIN 9.9 g/dL (13.5-17.0); HGB HCT DIFFERENCE 0.9; MEAN CORPUSCULAR HEMOGLOBIN 31.5 pg (27.0-33.4); MEAN CORPUSCULAR HGB CONC 34.5 g/dL (32.0-36.0); MEAN CORPUSCULAR VOLUME 91 fl (80-97); RED BLOOD COUNT 3.15 10^6/uL (4.35-5.55); RED CELL DISTRIBUTION WIDTH 13.9 % (11.5-14.0); WHITE BLOOD COUNT 6.6 10^3/uL (4.0-10.5)
[2017-03-17 06:35] LABS: PROTHROMBIN TIME 14.9 SEC (11.4-15.4)
[2017-03-17 06:36] LABS: BLOOD UREA NITROGEN 34 mg/dL (7-20); CREATININE RESULT 4.96 mg/dL (0.52-1.25); PARTIAL THROMBOPLASTIN TIME 37.2 SEC (23.5-35.8)
--- NOTE | 2017-03-17 10:22 | RADIOLOGY REPORT (SQ) ---
EXAM DESCRIPTION: U/S ABD PARACENTESIS COMPLETED DATE/TIME: 03/17/2017 10:09 am REASON FOR STUDY: ASCITES COMPARISON Multiple previous LIMITATIONS: None. PROCEDURE: After obtaining informed consent, the patient was brought to the ultrasound suite. The p rocedure was performed with the patient on a gurney. Ultrasound was used to identify a prominent poc ket of ascites in the left lower quadrant. An appropriate access site was selected. The patient was prepped and draped in usual sterile fashion. The access site was anesthetized with 5 mL of 1% lido silvia. A [id number]-W-[id number] needle was advanced into the fluid. After aspiration of fluid the needle, the catheter was advanced off the needle into the fluid. A total of 8,250 mL of cloudy fluid was rem mario. The patient tolerated the procedure well left the department in satisfactory condition. Therapeutic only. No testing on the ascites fluid. IMPRESSION: Successful ultrasound-guided therapeutic paracentesis COMMENT: Patient medication list reviewed: Yes- Quality ID# [id number]:Eligible professional attests to doc umenting in the medical record they obtained, updated, or reviewed the patient's current medications. Quality ID #[id number]: The patient was prepped and draped using maximum sterile barrier technique including cap, mask, sterile gown, sterile gloves, a large sterile sheet, hand hygiene, and 2% Chlorhexidine fo r cutaneous antisepsis. When ultrasound is used, sterile ultrasound techniques are followed requiring sterile gel and sterile probes. Quality ID #[id number]: Final reports for procedures using fluoroscopy that document radiation exposure jeanie dylan, or exposure time and number of fluorographic images (if radiation exposure indices are not avail able) TECHNICAL DOCUMENTATION: JOB ID: [id number] [employer]- All Rights Reserved
[2017-03-17] MEDS ORDERED: ALBUMIN HUMAN 250 ML IV PRN (10:42)
[2017-03-17 13:01] VITALS: BP 102/50
== END 2017-03-17 12:20 | disposition home or self-care (01) ==
LOC: RAD 05:50
PROVIDERS: ATTEND Internal Medicine Gastroenterology
PROC: 0W953ZZ Drainage of Lower Jaw, Percutaneous Approach (ICD-10-PCS; principal; 2017-03-17)
DX: K70.31 Alcoholic cirrhosis of liver with ascites (principal); Z88.0 Allergy status to penicillin; Z79.899 Other long term (current) drug therapy; N18.6 End stage renal disease
CPT/HCPCS: 36415; 82962; 84520; 82565; 85027; 85610; 85730; 49083; P9047

== ENCOUNTER 2017-03-21 15:29 | Inpatient (IN) | payer MEDICAID ==
[2017-03-21] MEDS ORDERED: MORPHINE SULFATE 10 MG/ML INJ IV ONE ×2 (16:41→20:02)
[2017-03-21 17:05] LABS: ABSOLUTE BASOPHILS # (AUTO) 0.1 10^3/uL (0.0-0.2); ABSOLUTE EOSINOPHILS # (AUTO) 0.2 10^3/uL (0.0-0.6); ABSOLUTE LYMPHOCYTES (AUTO) 0.7 10^3/uL (0.5-4.7); ABSOLUTE MONOCYTES (AUTO) 1.2 10^3/uL (0.1-1.4); ABSOLUTE NEUT (AUTO) 4.1 10^3/uL (1.7-8.2); BASOPHILS % (AUTO) 0.9 % (0-2); EOSINOPHILS % (AUTO) 2.6 % (0-6); HEMATOCRIT 31.5 % (37.9-51.0); HEMOGLOBIN 10.6 g/dL (13.5-17.0); HGB HCT DIFFERENCE 0.3; LYMPHOCYTES % (AUTO) 11.4 % (13-45); MEAN CORPUSCULAR HEMOGLOBIN 31.3 pg (27.0-33.4); MEAN CORPUSCULAR HGB CONC 33.6 g/dL (32.0-36.0); MEAN CORPUSCULAR VOLUME 93 fl (80-97); MONOCYTES % (AUTO) 18.9 % (3-13); RED BLOOD COUNT 3.38 10^6/uL (4.35-5.55); RED CELL DISTRIBUTION WIDTH 13.8 % (11.5-14.0); SEGMENTED NEUTROPHILS % (AUTO) 66.2 % (42-78); WHITE BLOOD COUNT 6.2 10^3/uL (4.0-10.5)
[2017-03-21 17:06] LABS: ALANINE AMINOTRANSFERASE 25 U/L (21-72); ALBUMIN 3.2 g/dL (3.5-5.0); ALKALINE PHOSPHATASE 226 U/L (38-126); ANION GAP 12 (5-19); ASPARTATE AMINO TRANSFERASE 53 U/L (17-59); BILIRUBIN,DIRECT 1.2 mg/dL (0.0-0.4); BLOOD UREA NITROGEN 23 mg/dL (7-20); CALCIUM 7.9 mg/dL (8.4-10.2); CARBON DIOXIDE 24 mmol/L (22-30); CHLORIDE 96 mmol/L (98-107); CREATININE RESULT 4.14 mg/dL (0.52-1.25); GLUCOSE 110 mg/dL (75-110); POTASSIUM 4.4 mmol/L (3.6-5.0); SODIUM 131.8 mmol/L (137-145); TOTAL PROTEIN 7.1 g/dL (6.3-8.2)
--- NOTE | 2017-03-21 17:28 | ER Document Report ---
ED GI/ - General Chief Complaint: Palpitations Stated Complaint: PALPITATIONS, VOMITING Time Seen by Provider: 03/21/17 15:53 Mode of Arrival: Ambulatory Information source: Patient TRAVEL OUTSIDE OF THE [place] IN LAST 30 DAYS: No - HPI Patient complains to provider of: Abdominal pain Onset: Other - 4 days Timing/Duration: Gradual Quality of pain: Achy, Cramping Severity at maximum: Moderate Severity in ED: Moderate Pain Level: 3 Location: Other - Periumbilical Associated symptoms: Nausea, Vomiting Exacerbated by: Denies Relieved by: Denies Notes: 03/21/17 17:26 Patient is a 51-year-old male with a history of liver cirrhosis and end-stage renal disease, who received dialysis this morning, who presents to the emergency room complaining of periumbilical abdominal pain related to a large ventral hernia that he has had for years, symptoms started 4 days ago, and are usually intermittent but today has lasted 2-3 hours, causing him to have palpitations as well, he does report nausea and one episode of vomiting clear liquid fluid, his last bowel movement was earlier today but he does take lactulose, states that he was scheduled to have a hernia repair approximately 1 month ago but the transplant surgeon at [facility] called him and told him to hold off on having surgery as he will be placed on the transplant list for a liver and kidney in the future, and apparently she was concerned postop complications which could delay that - Related Data Allergies/Adverse Reactions: povidone-iodine [From Betadine] Allergy (Verified 03/21/17 15:38) soap [From Betadine] Allergy (Verified 03/21/17 15:38) Penicillins Adverse Reaction (Verified 03/21/17 15:38) "some kind of dialysis filter" Allergy (Uncoded 03/21/17 15:38) Past Medical History - General Information source: Patient - Social History Smoking Status: Unknown if Ever Smoked Family History: CAD, DM, Malignancy - Mother uterine cancer. Patient has suicidal ideation: No Patient has homicidal ideation: No - Past Medical History Cardiac Medical History: Reports: Hx Heart Murmur Denies: Hx Coronary Artery Disease, Hx Heart Attack, Hx Hypertension - hypotension Pulmonary Medical History: Reports: Hx Asthma - as a child, Hx Pneumonia - 2015 Denies: Hx Bronchitis, Hx COPD Neurological Medical History: Denies: Hx Cerebrovascular Accident, Hx Seizures Renal/ Medical History: Reports: Hx End Stage Renal Disease, Hx Hemodialysis. Denies: Hx Peritoneal Dialysis GI Medical History: Reports: Hx Cirrhosis, Hx Liver Failure Musculoskeltal Medical History: Reports Hx Arthritis Past Surgical History: Reports: Hx Herniorrhaphy, Hx Vascular Surgery - left fistula - Immunizations Hx Diphtheria, Pertussis, Tetanus Vaccination: No Hx Pneumococcal Vaccination: 05/26/16 Review of Systems - Review of Systems Constitutional: No symptoms reported EENT: No symptoms reported Cardiovascular: No symptoms reported Respiratory: No symptoms reported Gastrointestinal: See HPI Genitourinary: No symptoms reported Male Genitourinary: No symptoms reported Musculoskeletal: No symptoms reported Skin: No symptoms reported Hematologic/Lymphatic: No symptoms reported Neurological/Psychological: No symptoms reported -: Yes All other systems reviewed and negative Physical Exam - Vital signs Vitals: Temp Pulse Resp BP Pulse Ox 98.1 F 79 22 H 101/26 L 95 03/21/17 15:38 03/21/17 15:38 03/21/17 15:38 03/21/17 15:38 03/21/17 15:38 Interpretation: Normal - General General appearance: Appears well, Alert - HEENT Head: Normocephalic, Atraumatic Eyes: Normal Pupils: PERRL - Respiratory Respiratory status: No respiratory distress Chest status: Nontender Breath sounds: Normal Chest palpation: Normal - Cardiovascular Rhythm: Regular Heart sounds: Normal auscultation Murmur: No - Abdominal Inspection: Other - Large ventral hernia which is soft, easily reducible, mild tenderness Distension: Distended - mild Bowel sounds: Normal Organomegaly: No organomegaly - Back Back: Normal, Nontender - Extremities General upper extremity: Normal inspection, Nontender, Normal color, Normal ROM , Normal temperature General lower extremity: Normal inspection, Nontender, Normal color, Normal ROM , Normal temperature, Normal weight bearing. No: Camila's sign - Neurological Neuro grossly intact: Yes Cognition: Normal Orientation: AAOx4 [place] Coma Scale Eye Opening: Spontaneous [place] Coma Scale Verbal: Oriented Odilia Coma Scale Motor: Obeys Commands [place] Coma Scale Total: 15 Speech: Normal Motor strength normal: LUE, RUE, LLE, RLE Sensory: Normal - Psychological Associated symptoms: Normal affect, Normal mood - Skin Skin Temperature: Warm Skin Moisture: Dry Skin Color: Normal Course - Re-evaluation Re-evalutation: 03/21/17 20:16 A call was placed to [facility] Hospital transfer line, requested callback from Dr. Dash or whoever is on-call for his service regarding patient 03/21/17 20:[address] Silverman who graciously accepts for transfer to [facility], patient agrees with this plan 03/21/17 22:38 Is being transferred to tertiary care center due to his complicated history, he has a history of end-stage renal disease as well as liver disease, he is currently being evaluated by the transplant team at [facility] for possible liver and/or kidney transplant, requires a higher level of care than can be provided at [facility] at this time - Vital Signs Vital signs: Temp Pulse Resp BP Pulse Ox 98.1 F 79 15 99/37 L 97 03/21/17 15:38 03/21/17 15:38 03/21/17 21:39 03/21/17 21:39 03/21/17 21:39 - Laboratory Result Diagrams: 03/21/17 15:56 03/21/17 15:56 Laboratory results interpreted by me: 03/21/17 03/21/17 15:56 15:56 RBC 3.38 L Hgb 10.6 L Hct 31.5 L Lymphocytes % 11.4 L Monocytes % 18.9 H Sodium 131.8 L Chloride 96 L BUN 23 H Creatinine 4.14 H Est GFR ( Amer) 18 L Est GFR (Non-Af Amer) 15 L Calcium 7.9 L Total Bilirubin 2.0 H Direct Bilirubin 1.2 H Alkaline Phosphatase 226 H Albumin 3.2 L - Diagnostic Test Radiology reviewed: Image reviewed, Reports reviewed Discharge - Discharge Clinical Impression: Small bowel obstruction Ventral hernia Qualifiers: Obstruction and gangrene presence: with obstruction but without gangrene Qualified Code(s): K43.6 - Other and unspecified ventral hernia with obstruction , without gangrene Condition: Serious Disposition: [place] Referrals: MILADY TOURE MD [Primary Care Provider] - Follow up as needed
--- NOTE | 2017-03-21 19:30 | RADIOLOGY REPORT (SQ) ---
EXAM DESCRIPTION: CT ABD/PELVIS ORAL ONLY COMPLETED DATE/TIME: 03/21/2017 7:12 pm REASON FOR STUDY: abd pain, ventral hernia COMPARISON: None. TECHNIQUE: CT scan of the abdomen and pelvis performed without intravenous or oral contrast. Images reviewed with lung, soft tissue, and bone windows. Reconstructed coronal and sagittal MPR images revi ewed. All images stored on PACS. All CT scanners at this facility use dose modulation, iterative reconstruction, and/or weight based d osing when appropriate to reduce radiation dose to as low as reasonably achievable (ALARA). [facility]: Dose Right [facility]: CareDose [facility]: Dose Right [facility]: Teradose 4D [facility]: [employer] RADIATION DOSE: mGy. LIMITATIONS: None. FINDINGS: LOWER CHEST: Small left-sided pleural effusion with associated atelectasis. No focal infi ltrate. Mild atelectasis in the right lower lobe. NON-CONTRASTED LIVER, SPLEEN, ADRENALS: Evaluation limited by lack of IV contrast. Liver is is small in size with slight nodular contour question possible cirrhosis. Diffuse intra-abdominal ascites/fl uid. No intra-abdominal free air. No identified significant masses. PANCREAS: No masses. No peripancreatic inflammatory changes. GALLBLADDER: Dense material noted within the lumen of the gallbladder which could represent excreted contrast material. No gallbladder wall thickening. No biliary dilatation. RIGHT KIDNEY AND URETER: No suspicious masses. Assessment limited by lack of IV contrast. No signif icant calcifications. No hydronephrosis or hydroureter. LEFT KIDNEY AND URETER: No suspicious masses. Assessment limited by lack of IV contrast. No signifi cant calcifications. No hydronephrosis or hydroureter. AORTA AND RETROPERITONEUM: No aneurysm. Scattered calcific atherosclerosis. No retroperitoneal mass es or adenopathy. BOWEL AND PERITONEAL CAVITY: There is significant dilatation of multiple loops of proximal small manuel l throughout the abdomen measuring approximately 4.1 cm. The bowel is noted to ensure into the herni a defect in the anterior abdominal wall (series 3 image 50/51). 5 upon exiting the hernia defect is the bowel is decompressed. This suggests there is a obstruction of the small bowel in this region se condary to the hernia defect significant amount of fluid is also noted within the hernia defect. No intra-abdominal free air is identified. Diffuse colonic diverticulosis noted. No mass lesions. No adenopathy. . APPENDIX: Not visualized. PELVIS, BLADDER, AND ABDOMINAL WALL:No abnormal masses. Moderate free fluid. Bladder normal. BONES: Wedge-shaped deformity at L5 which appears to be chronic. Multi at level degenerative changes of the spine. No definite acute osseous abnormality. OTHER: No other significant finding. IMPRESSION: 1. Multiple dilated loops of proximal small bowel are noted throughout the abdomen. At the ventral hernia side there is a loop of bowel which herniates into the defect. Beyond that the lo op in the small bowel is decompressed. This suggest that there is a small bowel obstruction at the s ite of the ventral hernia. No intra-abdominal free air is identified. There is a significant amount of intra- abdominal flow but this appears to be chronic in nature. No new bowel pneumatosis noted. 2. Uncomplicated colonic diverticulosis. 3. Small left-sided pleural effusion with associated atelectasis. TECHNICAL DOCUMENTATION: JOB ID: [id number] Quality ID # [id number]: Final reports with documentation of one or more dose reduction techniques (e.g., Au tomated exposure control, adjustment of the mA and/or kV according to patient size, use of iterative reconstruction technique) 2010 [employer]- All Rights Reserved
--- NOTE | 2017-03-21 20:45 | RADIOLOGY REPORT (SQ) ---
EXAM DESCRIPTION: KUB/ABDOMEN (SINGLE VIEW) COMPLETED DATE/TIME: 03/21/2017 8:38 pm REASON FOR STUDY: NG tube placement COMPARISON: None. NUMBER OF VIEWS: One view. TECHNIQUE: Supine radiographic image of the abdomen acquired. LIMITATIONS: None. FINDINGS: BOWEL GAS PATTERN: Numerous dilated loops of small bowel noted throughout the abdomen sugg estive underlying small bowel obstruction. Nasogastric tube projects over the region of the stomach. CALCIFICATIONS: No suspicious calcifications. SOFT TISSUES: No gross mass or suggestion of organomegaly. HARDWARE: None in the abdomen. BONES: No acute fracture. No worrisome bone lesions. OTHER: No other significant finding. IMPRESSION: Nasogastric tube tip in subtle project over the region of the stomach. Multiple dilated loops of small bowel noted in the abdomen consistent with small bowel obstruction. TECHNICAL DOCUMENTATION: JOB ID: [id number] [employer]- All Rights Reserved
[2017-03-21] MEDS ORDERED: NORMAL SALINE 1000 ML 1,000 ML IV ONE ×2 (23:34→23:39)
--- NOTE | 2017-03-21 23:43 | EKG REPORT ---
SEVERITY:- BORDERLINE ECG - SINUS RHYTHM BORDERLINE LEFT AXIS DEVIATION BORDERLINE T ABNORMALITIES, DIFFUSE LEADS : Confirmed by: Brittany Nava 21-Mar-2017 23:42:36
[2017-03-22] MEDS ORDERED: LACTULOSE SYRUP 20 GM/30 ML UDCUP PR ONE (01:58)
[2017-03-22] MEDS ORDERED: FENTANYL CITRATE INJ/PF 100 MCG/2 ML AMPUL IV ONE ×2 (06:27→08:22)
[2017-03-22] MEDS ORDERED: LACTULOSE SYRUP 20 GM/30 ML UDCUP PR SCH (06:30)
[2017-03-22] MEDS ORDERED: LACTULOSE SYRUP 20 GM/30 ML UDCUP PO ONE (07:30)
--- NOTE | 2017-03-22 07:30 | ER Document Report ---
Doctor's Note Notes: 03/22/17 07:28 Patient signed out to me by Dr. Faulkner at 0 [phone]. Patient was original patient of Dr. mariana avendaño and has been awaiting transfer for over 10 hours to [facility]. He is in end-stage renal disease end-stage liver disease on a transplant list. He has a known large ventral hernia which he did not want repair several months because evaluate his very high risk. Patient has an NG tube placed CT scan showing obstruction at the level of the ventral hernia. Dr. mariana avendaño documented to Dr. Faulkner and she was able to fully reduce this after still states he checked on numerous times throughout the night for the last 3 hours he was unable to completely reduce this. Patient has intermittent blood pressures in the 70s but when he wakes him up in the 90s with a history of the same. At the bedside when I fully assess and evaluate the patient at 0 715 his blood pressure is 110/39 heart rate 7300% O2 sat afebrile awake alert in no acute distress not complaining any severe abdominal tenderness. He has a large anterior ventral hernia which I cannot completely reduce at the bedside. And concern for a multitude of reasons 1 of which is the fact that this could eventually develop into ischemic that due to the delay in repair. I contacted [facility] immediately at 0 [phone] expressed my concerns and the fact that he had received a call back in an hour. Dr. Faulkner stated he tried to reach out to Dr. MONTEJO for the last 3 hours but then found out on the last, he was not crowd controller. Now I have contacted them and they recognize that there is been delayed receiving a phone call on Monday when to call provider right now. He has been a lactic acid which is negative. The patient needs evaluation emergently. Pulmonary ischemic bowel.
--- NOTE | 2017-03-22 08:22 | ER Document Report ---
Doctor's Note Notes: 03/22/17 08:20 Patient reassessed unable to reduce hernia increasing pain ordered fentanyl. [facility] called me back at 0 [phone] stating that they were waiting on a bed at this point in time I thought I needed to transfer the patient immediately to the emergency department via helicopter ED the evening. The hospital blast furnace operator contacted the ED and he rejected the transfer to the ED stating that they were on diversion for MedSurg. At this point in time I contacted [facility] who has not called me back yet. Due to the delay at this point and no testicular follow-up I contacted the on-call surgeon Dr. Jethro MOORE at [phone]. He stated to me that bumping the patient on him. I explained to him that at this point I can only control the timing of this year and due to the ongoing care and concerns of ischemia either contacting him to do an immediate ED evaluation. He stated that he got here when he got here and a similar timeframe was he said probably an hour or more. At this point I have contacted the ANIMAL ASSISTED THERAPIST of the hospital at [phone] and awaiting phone call back from her. In the meantime I have faxed demographics to [facility] in regards to this patient to try to secure follow-up.
[2017-03-22] MEDS ORDERED: PHENYLEPHRINE HCL INJ/PF 10 MG/1 ML SDV ONE ×2 (08:42→20:24)
[2017-03-22] MEDS ORDERED: SUCCINYLCHOLINE CHLORIDE INJ 200 MG/10 ML VIAL ONE (08:42)
[2017-03-22] MEDS ORDERED: VECURONIUM BROMIDE INJ 10 MG VIAL IV ONE (08:42)
[2017-03-22] MEDS ORDERED: GLYCOPYRROLATE INJ 0.4 MG/2 ML VIAL ONE (08:42)
[2017-03-22] MEDS ORDERED: NEOSTIGMINE METHYLSULFATE 10 MG/10 ML VIAL ONE (08:42)
[2017-03-22] MEDS ORDERED: ETOMIDATE INJ/PF 20 MG/10 ML SDV IV ONE (08:42)
--- NOTE | 2017-03-22 08:42 | ER Document Report ---
Doctor's Note Notes: 03/22/17 08:41 TRIMMING PRESS OPERATOR and CML as well as ED nurse manager of construction bedside consultation spoke with the on- call surgeon who is one mildly and is coming to emergently see the patient. [facility] did call back and state that they contacted his GI surgeon and the night warehouse manager and there at capacity and had no surgical beds. I have rechecked and gave consent been demographics we have not received a call back yet. I am anticipating the surgical evaluation at the bedside.
--- NOTE | 2017-03-22 09:03 | ER Document Report ---
Doctor's Note Notes: 03/22/17 08:43 Note concerned about blood pressure as they have been throughout the night. When patient is sleeping his pressure goes down in the 70s and 80s for when you wake him up but goes back up to 100. Blood pressure currently at the bedside is 101 36 with a heart rate of 77. Concerned about using pressors currently and will be deferred to the surgeon when he comes here patient has end-stage liver disease if we were to hydrate at this time on pressors we could cause third spacing so I will try a fluid trial. But very concerned about pressures intermittently
--- NOTE | 2017-03-22 09:38 | PDOC H&P ---
History of Present Illness Admission Date/PCP: MILADY TOURE MD Patient complains of: Periumbilical abdominal pain with recurrence of his umbilical hernia, nausea and vomiting History of Present Illness: ANITA HASTINGS JR is a 51 year old male Presented to the emergency room late last evening with complaints of periumbilical abdominal pain. The patient had a known recurrent ventral hernia that apparently was a result of a failed umbilical herniorrhaphy in the past. Patient stated that whenever he would stand the hernia would fill with his abdominal contents. He stated that when he would lay flat it would always resolve and his abdomen would become flat. He stated that yesterday he began having pain in this area. He stated that he then began just prior to coming to the emergency room began having episodes of nausea and vomiting. Nursing states that once an NG tube was placed in the emergency room that he had over 1 L of gastric contents that were evacuated. The patient states he had a normal bowel movement yesterday after taking his lactulose. The patient elicits a history of having the recurrent ventral hernia reevaluated by his surgeons at [facility]. The patient has hepatic failure secondary to EtOH abuse and is currently on a potential list for liver transplant. His hepatic failure has led to end-stage renal failure for which the patient undergoes dialysis 3 days a week. Apparently when his surgeon was contacted concerning this hernia the patient was told "never let anyone else operate on this except for the people here at [facility]." Subsequently the patient has been putting up with the hernia for some time now. Apparently the emergency room physician last night had initially reduced the hernia however it has reoccurred causing him increasing pain. There were 13 hours of communication with [facility] and [facility] in attempt to have the patient transferred to a larger facility for possible herniorrhaphy however because of divert status for surgery patient's the patient remains in this emergency room. Past Medical History Cardiac Medical History: Reports: Heart Murmur, Other - Positive for aortic stenosis Denies: Coronary Artery Disease, Myocardial Infarction, Hypertension - hypotension Pulmonary Medical History: Reports: Asthma - as a child, Pneumonia - 05/2016 Denies: Bronchitis, Chronic Obstructive Pulmonary Disease (COPD) Neurological Medical History: Denies: Seizures Renal/ Medical History: Reports: End Stage Renal Disease GI Medical History: Reports: Cirrhosis, Other - Secondary to EtOH abuse Musculoskeltal Medical History: Reports: Arthritis Psychiatric Medical History: Reports: Alcohol Dependency Traumatic Medical History: Reports: None Hematology: Reports: Anemia Past Surgical History Past Surgical History: Reports: Herniorrhaphy - Umbilical herniorrhaphy, right inguinal herniorrhaphy, Vascular Surgery - left fistula Social History Smoking Status: Unknown if Ever Smoked Frequency of Alcohol Use: Heavy - None since April 2015, prior to that heavy daily use. Amount of Alcoholic Beverages Per Day: 1/5 of vodka per day, 12 pack of beer per day for 10 years Drugs: None Family History Family History: CAD, DM, Malignancy - Mother uterine cancer. Parental Family History Reviewed: No Children Family History Reviewed: No Sibling(s) Family History Reviewed.: No Medication/Allergy Home Medications: Midodrine HCl [Proamatine 5 mg Tablet] 10 mg PO ASDIR PRN 04/18/16 Pantoprazole Sodium 40 mg PO DAILY 04/18/16 Folic Acid/Vitamin B Comp W-C [Dialyvite 800 Tablet] 1 tab PO DAILY 05/06/16 Sevelamer HCl [Renagel] 1,600 mg PO TID 05/06/16 Rifaximin [Xifaxan 200 Mg Tablet] 550 mg PO BID #40 tablet 05/25/16 Gabapentin 600 mg PO HSP PRN 01/27/17 Lactulose [Kristalose 20 gm Packet] 1 packet PO QID 03/22/17 Sodium Polystyrene Sulfon/Sorb [Kionex 15 gm/60 ml Suspension] 15 gm PO PRN PRN 03/22/17 Allergies/Adverse Reactions: povidone-iodine [From Betadine] Allergy (Verified 03/21/17 15:38) soap [From Betadine] Allergy (Verified 03/21/17 15:38) Penicillins Adverse Reaction (Verified 03/21/17 15:38) "some kind of dialysis filter" Allergy (Uncoded 03/21/17 15:38) Review of Systems Constitutional: ABSENT: chills, fever(s), headache(s), weight gain, weight loss Eyes: ABSENT: visual disturbances Ears: ABSENT: hearing changes Nose, Mouth, and Throat: PRESENT: as per HPI Breasts: PRESENT: as per HPI Cardiovascular: ABSENT: chest pain, dyspnea on exertion, edema, orthropnea, palpitations Respiratory: ABSENT: cough, hemoptysis Gastrointestinal: PRESENT: abdominal pain, bloating, nausea, vomiting Genitourinary: PRESENT: difficulty urinating, other - End-stage renal failure dialysis dependent Musculoskeletal: ABSENT: joint swelling Neurological: ABSENT: abnormal gait, abnormal speech, confusion, dizziness, focal weakness, syncope Psychiatric: ABSENT: anxiety, depression, homidical ideation, suicidal ideation Endocrine: ABSENT: cold intolerance, heat intolerance, polydipsia, polyuria Hematologic/Lymphatic: ABSENT: easy bleeding, easy bruising Allergic/Immunologic: PRESENT: as per HPI Physical Exam Vital Signs: Temp Pulse Resp BP Pulse Ox 97.8 F 79 16 103/60 100 03/22/17 07:30 03/21/17 15:38 03/22/17 08:49 03/22/17 08:49 03/22/17 08:49 Intake & Output 03/21/17 03/22/17 03/23/17 06:59 06:59 06:59 Intake Total 150 Output Total 50 Balance -50 150 Weight 62.8 kg General appearance: PRESENT: cooperative, mild distress Head exam: PRESENT: atraumatic, normocephalic Eye exam: PRESENT: conjunctiva pink, EOMI, PERRLA. ABSENT: scleral icterus Ear exam: PRESENT: normal external ear exam Mouth exam: PRESENT: dry mucosa Neck exam: ABSENT: carotid bruit, JVD, lymphadenopathy, thyromegaly Respiratory exam: PRESENT: clear to auscultation benoit. ABSENT: rales, rhonchi, wheezes Cardiovascular exam: PRESENT: RRR, +S1, +S2 - Patient is positive for a grade 3 holosystolic ejection murmur best heard at 2RICS,R SB, systolic murmur Pulses: PRESENT: normal carotid pulses, normal radial pulses, normal dorsalis pedis pul Vascular exam: PRESENT: normal capillary refill GI/Abdominal exam: PRESENT: ascites, distended, hernia, hypoactive bowel sounds , organolmegaly, soft, tenderness - Patient is positive for a periumbilical mass that is irreducible. There are no bowel sounds within the mass. Patient is positive for ascites with generated fluid wave. There is no evidence of Caput [place]. Rectal exam: PRESENT: deferred Extremities exam: PRESENT: full ROM. ABSENT: calf tenderness, clubbing, pedal edema Musculoskeletal exam: PRESENT: ambulatory Neurological exam: PRESENT: alert, altered, awake, oriented to person, oriented to place, oriented to time, oriented to situation, CN II-XII grossly intact Psychiatric exam: PRESENT: appropriate affect, normal mood. ABSENT: homicidal ideation, suicidal ideation Skin exam: PRESENT: dry, intact, warm. ABSENT: cyanosis, rash Results Laboratory Results: 03/21/17 15:56 03/21/17 15:56 03/21/17 03/21/17 03/22/17 15:56 15:56 04:15 WBC 6.2 RBC 3.38 L Hgb 10.6 L Hct 31.5 L MCV 93 MCH 31.3 MCHC 33.6 RDW 13.8 Plt Count 193 Seg Neutrophils % 66.2 Lymphocytes % 11.4 L Monocytes % 18.9 H Eosinophils % 2.6 Basophils % 0.9 Absolute Neutrophils 4.1 Absolute Lymphocytes 0.7 Absolute Monocytes 1.2 Absolute Eosinophils 0.2 Absolute Basophils 0.1 Sodium 131.8 L Potassium 4.4 Chloride 96 L Carbon Dioxide 24 Anion Gap 12 BUN 23 H Creatinine 4.14 H Est GFR ( Amer) 18 L Est GFR (Non-Af Amer) 15 L Glucose 110 Lactic Acid 1.9 Calcium 7.9 L Total Bilirubin 2.0 H AST 53 ALT 25 Alkaline Phosphatase 226 H Total Protein 7.1 Albumin 3.2 L Impressions: KUB X-Ray 03/21/17 00:00 IMPRESSION: Nasogastric tube tip in subtle project over the region of the stomach. Multiple dilated loops of small bowel noted in the abdomen consistent with small bowel obstruction. Abdomen/Pelvis CT 03/21/17 16:49 IMPRESSION: 1. Multiple dilated loops of proximal small bowel are noted throughout the abdomen. At the ventral hernia side there is a loop of bowel which herniates into the defect. Beyond that the loop in the small bowel is decompressed. This suggest that there is a small bowel obstruction at the site of the ventral hernia. No intra-abdominal free air is identified. There is a significant amount of intra- abdominal flow but this appears to be chronic in nature. No new bowel pneumatosis noted. 2. Uncomplicated colonic diverticulosis. 3. Small left-sided pleural effusion with associated atelectasis. Status: Image reviewed by me Assessment & Plan - Diagnosis (1) End stage renal disease on dialysis Is this a current diagnosis for this admission?: Yes (2) Small bowel obstruction Is this a current diagnosis for this admission?: Yes (3) Hepatic failure due to alcoholism Is this a current diagnosis for this admission?: Yes (4) Ventral hernia Qualifiers: Obstruction and gangrene presence: with obstruction but without gangrene Qualified Code(s): K43.6 - Other and unspecified ventral hernia with obstruction, without gangrene Is this a current diagnosis for this admission?: Yes (5) Incarcerated umbilical hernia Is this a current diagnosis for this admission?: YesPlan: 1. As it appears the patient cannot be transferred to a facility with a higher level of care or to the facility in which his transplant surgeon practices, and with the findings of small bowel obstruction secondary to incarceration of small bowel within a recurrent umbilical/ventral hernia, I feel that the patient needs operative intervention to relieve the small bowel obstruction. 2. We will consult anesthesia for preoperative evaluation - Time Time Spent: Greater than 70 Minutes Anticipated discharge: Home
[2017-03-22] MEDS ORDERED: PHYTONADIONE INJ 10 MG/1 ML AMPULE IV ONE (10:48)
--- NOTE | 2017-03-22 10:54 | ER Document Report ---
Doctor's Note Notes: 03/22/17 10:52 0900 diogo called back stated no beds currently available. Dr. Phillips surgery in ed. the patient has been in the room together to evaluate the patient whereby he took a full history did a physical examination and determine at this point that he would need to operate on him and intervene. He is awaiting anesthesia consultation. Talk to Dr. Varner who is agreed to accept the patient in the ICU after the surgical procedures performed. Has also contacted Dr. Magallon to do a cardiac consult for clearance and a stat echocardiogram which are pending at this point. We recommended that the PT/INR is not back yet contacted the lab at 10:50 AM then received and they will run it stat. Nurses with ongoing concerns about patient's blood pressure being in the 90s. Explained to them that at this point I do not think pressors are warranted with no undue fluids because of third spacing. He pain is under control and still not reducible at this point. The surgeon has been in the department the entire time since 9 AM.
[2017-03-22 10:56] LABS: PROTHROMBIN TIME 15.1 SEC (11.4-15.4)
--- NOTE | 2017-03-22 11:12 | ER Document Report ---
Doctor's Note Notes: 03/22/17 11:10 I spoke to the on-call anesthesiologist at 11 AM. She was requesting an H&P and a previous echocardiogram report on the patient. Dr. Magallon is here he seen the patient at the bedside and is going to do a bedside echocardiogram. Anesthesia would like to compare the previous echocardiogram to the current echocardiogram. I contacted the patient's materials handling coordinator SUNIL cortes and [employer] who stated he will fax the H&P and the most recent echocardiogram. 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 We are awaiting the transmission of the fax.
--- NOTE | 2017-03-22 11:35 | ER Document Report ---
Doctor's Note Notes: 03/22/17 11:35 [facility] tried to handling her over to anesthesia but the anesthesiologist is in the case. They are the nurse that her know and she will get the information from the physicians on the case. Dr. Bearden is also back at the bedside reviewing the paperwork including the previous echocardiogram that was done at [facility].
--- NOTE | 2017-03-22 12:22 | ER Document Report ---
Doctor's Note Notes: 03/22/17 12:21 Dr. Varner is here at the bedside to see and evaluate the patient. Him that we are waiting for anesthesia and cardiology clearance. He has any IV antibiotics were ordered by the surgeon they were not and asked that I placement at this time which I well.
[2017-03-22] MEDS ORDERED: CEFOXITIN INJ 1 GM VIAL IV ONE (12:23)
--- NOTE | 2017-03-22 12:36 | ER Document Report ---
Doctor's Note Notes: 03/22/17 12:36 Dr. Varner here alongside the anesthesiologist who came down and reviewed the patient's records from [facility]. They have also spoke with cardiology and they have agreed to do the surgery on the patient. I am going to contact Her back because I have kept him on the list for when a bed opens up he can be transferred there postoperatively.
--- NOTE | 2017-03-22 12:43 | ER Document Report ---
Doctor's Note Notes: 03/22/17 12:38 spoke with hospital sheet cutting operator at [facility] and let her know that they were going to do the surgery here but they were going to continue to request an ICU bed postoperatively as soon as one becomes available. I gave her Dr. Varner the admitting physicians information and number to be reached directly in the intensive care unit.
[2017-03-22 13:08] LABS: ABSOLUTE BASOPHILS # (AUTO) 0.1 10^3/uL (0.0-0.2); ABSOLUTE EOSINOPHILS # (AUTO) 0.2 10^3/uL (0.0-0.6); ABSOLUTE LYMPHOCYTES (AUTO) 0.9 10^3/uL (0.5-4.7); ABSOLUTE MONOCYTES (AUTO) 0.8 10^3/uL (0.1-1.4); ABSOLUTE NEUT (AUTO) 4.5 10^3/uL (1.7-8.2); BASOPHILS % (AUTO) 1.2 % (0-2); EOSINOPHILS % (AUTO) 3.4 % (0-6); HEMATOCRIT 31.1 % (37.9-51.0); HEMOGLOBIN 10.6 g/dL (13.5-17.0); HGB HCT DIFFERENCE 0.7; LYMPHOCYTES % (AUTO) 13.6 % (13-45); MEAN CORPUSCULAR HEMOGLOBIN 31.4 pg (27.0-33.4); MEAN CORPUSCULAR VOLUME 92 fl (80-97); MONOCYTES % (AUTO) 12.7 % (3-13); RED BLOOD COUNT 3.37 10^6/uL (4.35-5.55); SEGMENTED NEUTROPHILS % (AUTO) 69.1 % (42-78); WHITE BLOOD COUNT 6.6 10^3/uL (4.0-10.5)
[2017-03-22] MEDS ORDERED: HYDROMORPHONE HCL INJ/PF 2 MG/ML AMPULE ONE (13:20)
[2017-03-22] MEDS ORDERED: FENTANYL CITRATE INJ/PF 250 MCG/5 ML AMPULE ONE (13:20)
[2017-03-22] MEDS ORDERED: PROPOFOL INJ 200 MG/20 ML VIAL IV ONE (13:21)
[2017-03-22] MEDS ORDERED: MIDAZOLAM 2 MG/2 ML INJ ONE (13:21)
[2017-03-22] MEDS ORDERED: FENTANYL CITRATE INJ/PF 100 MCG/2 ML AMPUL ONE (13:21)
[2017-03-22] MEDS ORDERED: EPHEDRINE SULFATE INJ 50 MG/1 ML AMPULE ONE (13:24)
[2017-03-22 13:27] LABS: ANION GAP 16 (5-19); BLOOD UREA NITROGEN 40 mg/dL (7-20); CALCIUM 8.2 mg/dL (8.4-10.2); CARBON DIOXIDE 22 mmol/L (22-30); CHLORIDE 93 mmol/L (98-107); CREATININE RESULT 5.34 mg/dL (0.52-1.25); GLUCOSE 77 mg/dL (75-110); POTASSIUM 4.4 mmol/L (3.6-5.0)
--- NOTE | 2017-03-22 13:28 | ER Document Report ---
Doctor's Note Notes: 03/22/17 13:26 new diagnosis 1. non reducible incarcerated abdominal hernia 2. hypotension intermittently 3. history end stage liver cirrhosis 4. history end stage renal failure critical care at bedside 4 hours from 7 AM this morning including constant multiple phone calls constant multiple reassessment and coordinating care with cardiology surgery menstruated team pulmonology consultation management of pain
--- NOTE | 2017-03-22 13:53 | XCELERA REPORT ---
[address] [address] Transthoracic Echocardiogram Report Name: NETTAANITA GEORGE JR Age: 51 yrs Gender: Male : 1965 Patient Status: Emergency Patient Location: ER Study Date: 03/22/2017 11:11 AM Height: 68 in Weight: 138 lb BSA: 1.7 m2 Procedure: A two-dimensional transthoracic echocardiogram with color flow and Doppler was performed. The study was technically difficult with many images being suboptimal in quality. Reason For Study: / AR / Preoperative Cardiac Exam History: / AR / Preoperative Cardiac Exam. Ordering Physician: MIRI MACK Performed By: Angela Durham Interpretation Summary / AR / Preoperative Cardiac Exam The left ventricle is normal in size. There is normal left ventricular wall thickness. LV EF is 60% Left ventricular systolic function is normal. Doppler measurements suggest normal left ventricular diastolic function The left ventricular wall motion is normal. There is no thrombus. The right ventricle is grossly normal size. The left atrium is borderline dilated. The interatrial septum is intact with no evidence for an atrial septal defect. There is no evidence of mitral valve prolapse. There is no vegetation seen on the mitral valve. There is no mitral valve stenosis. There is a mild amount of mitral regurgitation There is severe aortic stenosis There is a peak gradient of 88 mm of Hg. There is a moderate amount of aortic regurgitation There is no tricuspid stenosis. There is a trace amount of tricuspid regurgitation There is mild to moderate pulmonary hypertension by echo RVSP is 46 to 51 mm of Hg , with RA mean of 5 to 10. The inferior vena cava appeared normal and decreased > 50% with respiration (RAP 5-10 mmHg) There is no pericardial effusion. MMode/2D Measurements \T\ Calculations RVDd: 3.0 cm LVIDd: 5.7 cm FS: 48.7 % Ao root diam: 3.0 cm IVSd: 0.97 cm LVIDs: 2.9 cm EDV(Teich): 162.6 ml LVPWd: 0.95 cmESV(Teich): 33.4 ml Ao root area: 7.2 cm2 EF(Teich): 79.5 % LVOT diam: 2.2 cm LVOT area: 3.7 cm2 Doppler Measurements \T\ Calculations MV E max prieto: MV dec slope: Ao V2 max: AI max prieto: 132.5 cm/sec 602.1 cm/sec2 464.7 cm/sec 438.5 cm/sec MV A max prieto: MV dec time: Ao max PG: AI max P.6 cm/sec 0.22 sec 86.4 mmHg 76.9 mmHg MV E/A: 1.6 Ao V2 mean: AI dec slope: 336.6 cm/sec 643.1 cm/sec2 Ao mean PG: AI P1/2t: 51.9 mmHg 199.7 msec Ao V2 VTI: 103.7 cm ALCIDES(I,D): 1.4 cm2 ALCIDES(V,D): 1.3 cm2 LV V1 max PG: MR max prieto: SV(LVOT): PA V2 max: 11.0 mmHg 582.0 cm/sec 142.9 ml 113.0 cm/sec LV V1 mean PG: MR max PG: PA max P.1 mmHg 6.1 mmHg 135.5 mmHg LV V1 max: 165.8 cm/sec LV V1 mean: 114.1 cm/sec LV V1 VTI: 39.1 cm TR max prieto: 313.8 cm/sec TR max P.4 mmHg Left Ventricle The left ventricle is normal in size. There is normal left ventricular wall thickness. LV EF is 60%. Left ventricular systolic function is normal. Doppler measurements suggest normal left ventricular diastolic function. The left ventricular wall motion is normal. There is no thrombus. There is no ventricular septal defect visualized. Right Ventricle The right ventricle is grossly normal size. Atria The right atrium is normal. The left atrium is borderline dilated. The interatrial septum is intact with no evidence for an atrial septal defect. Mitral Valve There is no evidence of mitral valve prolapse. There is no vegetation seen on the mitral valve. There is no mitral valve stenosis. There is a mild amount of mitral regurgitation. Aortic Valve There is no aortic valvular vegetation. There is severe aortic stenosis. There is a peak gradient of 88 mm of Hg. There is a moderate amount of aortic regurgitation. Tricuspid Valve There is no tricuspid stenosis. There is a trace amount of tricuspid regurgitation. There is mild to moderate pulmonary hypertension by echo. RVSP is 46 to 51 mm of Hg , with RA mean of 5 to 10. Pulmonic Valve There is no pulmonic valvular stenosis. There is no pulmonic valvular regurgitation. Great Vessels The aortic root is normal size. The inferior vena cava appeared normal and decreased > 50% with respiration (RAP 5-10 mmHg). Effusions There is no pericardial effusion. : MIRI MACK > Lindsey Magallon
[2017-03-22] MEDS ORDERED: KETAMINE HCL INJ 500 MG/10 ML VIAL ONE (14:07)
[2017-03-22] MEDS ORDERED: MORPHINE SULFATE 10 MG/ML INJ ONE (15:13)
[2017-03-22] MEDS ORDERED: DIPHENHYDRAMINE HCL 50 MG/ML VIAL IV PRN (15:31)
[2017-03-22] MEDS ORDERED: PROMETHAZINE HCL INJ 25 MG/1 ML VIAL IV PRN ×2 (15:31)
[2017-03-22] MEDS ORDERED: FENTANYL CITRATE INJ/PF 100 MCG/2 ML AMPUL IV PRN ×3 (15:31)
[2017-03-22] MEDS ORDERED: MEPERIDINE HCL/PF INJ 25 MG/1 ML DISP.SYRIN IV PRN (15:31)
[2017-03-22] MEDS ORDERED: MORPHINE SULFATE 10 MG/ML INJ IV PRN ×2 (15:31→17:59)
--- NOTE | 2017-03-22 16:28 | Brief Operative Note ---
BRIEF OPERATIVE REPORT DATE OF SURGERY: 03/22/17 TIME OF SURGERY: 14:25 PREOPERATIVE DIAGNOSIS: Small bowel obstruction. 2 incarcerated recurrent ventral hernia POSTOPERATIVE DIAGNOSIS: With Bruneian cheese defects rectus fascia SURGEON: JOSE SEGURA FINDINGS: Multiple axial defect umbilical area lead to the right of midline with loop of bowel incarcerated within the fascial defect to large associated hernia sac with ascitic fluid within the hernia sac. Dilated small bowel proximal to the distal jejunum area to incarceration of distal jejunum within the fascial defect. 3400 cc of ascitic fluid aspirated from the abdominal cavity COMPLICATIONS: none ESTIMATED BLOOD LOSS: 5 cc TISSUE REMOVED OR ALTERED: Multiple hernia sacs TECHNICAL PROCEDURE: this 51-year-old white male was taken to the operating room placed supine position after adequate general anesthesia via LMA was prepped with DuraPrep draped in sterile fashion. An incision was made over a mass in the periumbilical area in the midline through the skin and subcutaneous tissue. Dissection was carried down into the subcutaneous tissue utilizing Metzenbaum scissors. At this point what appeared to be incarcerated bowel was encountered. The surrounding tissue was gently dissected free of the incarcerated mass utilizing Metzenbaum scissors. Dissection was carried down caudad to the masses in the abdomen was then entered in the midline following incision of the fascia with electrocautery. Once into the peritoneum the finger was swept cephalad and the incarcerated bowel was identified. Utilizing sharp and blunt dissection eventually the 2 large hernia sacs were dissected free of the subcutaneous tissue. The small bowel was then gently placed on traction beneath the incarcerated small bowel within the fascial defect and the fascial defect was opened utilizing sharp dissection with Metzenbaum scissors. Once open the knuckle of jejunum was freed from the fascial defect and return to the abdominal cavity. Both of the hernia sac filled with ascitic fluid were emptied of its contents. The hernia sacs were then dissected free of the fascia utilizing electrocautery passed off the operative field and sent to pathology for further evaluation. Following removal of 3400 cc of ascitic fluid from the peritoneal cavity the small bowel was then run from the ileocecal valve to the ligament of Treitz milking the contents from the distal jejunum cephalad into the stomach where it was removed utilizing the NG tube that had been placed previously. The contents of the small bowel was advanced cephalad into the stomach the small bowel was then returned to the abdomen. The subcutaneous tissue was then dissected free the anterior rectus fascia to the level of the lateral border of the muscle to the right and left of the fascial defects. Once in this area was gauged for ability of it to be approximated in the midline. Once this was verified with cheese fascial defects were then is from the right anterior rectus fascial leaf. Controlled with electrocautery. Irrigated with approximately 2 L of saline solution. Then approximately utilizing interrupted [id number] sutures of 0 Vicryl. The fascia was completely closed a piece of Parietex mesh was then fashioned and sutured to the foot close fascial defect and surrounding anterior rectus fascia to the right and left of midline with approximately 3 cm of overlap of the mesh and the surrounding fascia. The mesh was anchored in place utilizing interrupted 2-0 Prolene suture. Kidneys tissue was then irrigated with saline solution a 10 mm flat Henrik-Hummel drain was brought through separate stab incision in the right lower abdomen and placed over the mesh. The cutaneous tissue was approximately utilizing interrupted 3-0 Monocryl sutures. The skin edges were then approximated utilizing interrupted stainless steel silvia. Was anchored in place utilizing a 2-0 silk suture cut to appropriate length and attached to a grenade suction. He was placed on a cart and taken to recovery room in stable condition. Gross pathology: This 51-year-old white male presenting to the emergency room with a small bowel obstruction CT scan revealing what appeared to be incarcerated small bowel within a recurrent periumbilical ventral hernia. The patient had a history of end-stage renal failure, dialysis dependent, hepatic failure secondary to EtOH abuse severe aortic stenosis. Operative Pathology: Included an incarcerated piece of distal jejunum within a hernia sac within a fascial defect the right anterior abdominal wall. Multiple fascial defects within the right anterior rectus fascia with hernia sacs containing ascitic fluid. The liver edges were blunted. There were no masses palpated within the colon or small bowel during exploration of the abdomen.
[2017-03-22] MEDS ORDERED: ONDANSETRON HCL INJ/PF 4 MG/2 ML SDV IV PRN ×2 (16:59→17:59)
[2017-03-22] MEDS ORDERED: DEXTROSE 40% GEL 15 GM TUBE PO PRN ×2 (17:59)
[2017-03-22] MEDS ORDERED: DEXTROSE 50%-WATER 25 GM/50 ML DISP.SYRIN IV PRN ×2 (17:59)
[2017-03-22] MEDS ORDERED: GLUCAGON,HUMAN RECOMB 1 MG INJ SUBCUT PRN (17:59)
[2017-03-22] MEDS ORDERED: CIPROFLOXACIN 400 MG/D5W RTU 400 MG/200 ML RTUPB IV SCH (18:00)
[2017-03-22 18:10] LABS: ABSOLUTE BASOPHILS # (AUTO) 0.1 10^3/uL (0.0-0.2); ABSOLUTE EOSINOPHILS # (AUTO) 0.1 10^3/uL (0.0-0.6); ABSOLUTE LYMPHOCYTES (AUTO) 0.6 10^3/uL (0.5-4.7); ABSOLUTE MONOCYTES (AUTO) 0.7 10^3/uL (0.1-1.4); BASOPHILS % (AUTO) 0.8 % (0-2); EOSINOPHILS % (AUTO) 1.4 % (0-6); HEMATOCRIT 32.4 % (37.9-51.0); HEMOGLOBIN 11.1 g/dL (13.5-17.0); HGB HCT DIFFERENCE 0.9; LYMPHOCYTES % (AUTO) 5.8 % (13-45); MEAN CORPUSCULAR HEMOGLOBIN 31.9 pg (27.0-33.4); MEAN CORPUSCULAR HGB CONC 34.1 g/dL (32.0-36.0); MEAN CORPUSCULAR VOLUME 93 fl (80-97); MONOCYTES % (AUTO) 7.8 % (3-13); RED BLOOD COUNT 3.47 10^6/uL (4.35-5.55); RED CELL DISTRIBUTION WIDTH 13.8 % (11.5-14.0); SEGMENTED NEUTROPHILS % (AUTO) 84.2 % (42-78); WHITE BLOOD COUNT 9.5 10^3/uL (4.0-10.5)
[2017-03-22 18:24] LABS: ANION GAP 16 (5-19); BLOOD UREA NITROGEN 39 mg/dL (7-20); CALCIUM 7.7 mg/dL (8.4-10.2); CARBON DIOXIDE 19 mmol/L (22-30); CHLORIDE 98 mmol/L (98-107); CREATININE RESULT 5.34 mg/dL (0.52-1.25); GLUCOSE 83 mg/dL (75-110); POTASSIUM 4.3 mmol/L (3.6-5.0); SODIUM 133.3 mmol/L (137-145)
[2017-03-22 18:36] LABS: ARTERIAL BLOOD BASE EXCESS -11.4 mmol/L; ARTERIAL BLOOD O2 SATURATION 96.6 % (94-98)
[2017-03-22 18:44] LABS: PROTHROMBIN TIME 15.6 SEC (11.4-15.4)
[2017-03-22] MEDS: LACTULOSE SYRUP 20 GM/30 ML UDCUP PR SCH ×2 (19:00→21:31)
--- NOTE | 2017-03-22 20:55 | PDOC TRANSFER SUMMARY ---
General Admission Date/PCP: 03/22/17 13:16 MILADY TOURE MD Admission Date: 03/22/17 Transfer Date: 03/22/17 Accepting Facility: [facility] Res[facility] Status: Full Code - Transfer Diagnosis (1) End stage renal disease on dialysis Is this a current diagnosis for this admission?: Yes (2) Hepatic failure due to alcoholism Is this a current diagnosis for this admission?: Yes (3) Small bowel obstruction Is this a current diagnosis for this admission?: YesDiagnosis Summary: welcome center agent surgery (4) Ventral hernia Is this a current diagnosis for this admission?: YesDiagnosis Summary: s/p surgery (5) Incarcerated umbilical hernia Is this a current diagnosis for this admission?: Yes - Transfer Medications Home Medications: Midodrine HCl [Proamatine 5 mg Tablet] 10 mg PO ASDIR PRN 04/18/16 Pantoprazole Sodium 40 mg PO DAILY 04/18/16 Folic Acid/Vitamin B Comp W-C [Dialyvite 800 Tablet] 1 tab PO DAILY 05/06/16 Sevelamer HCl [Renagel] 1,600 mg PO TID 05/06/16 Gabapentin 600 mg PO HSP PRN 01/27/17 Lactulose [Kristalose 20 gm Packet] 1 packet PO QID 03/22/17 Sodium Polystyrene Sulfon/Sorb [Kionex 15 gm/60 ml Suspension] 15 gm PO PRN PRN 03/22/17 Transfer Medications: Current Medications Dextrose (Dextrose Inj 50% Syringe (25 Gm/50 Ml)) 12.5 gm IV PRN PRN; Protocol PRN Reason: FOR BG 50-69 IN ALERT PATIENT Stop: 04/21/17 17:58 Dextrose (Dextrose Inj 50% Syringe (25 Gm/50 Ml)) 25 gm IV PRN PRN; Protocol PRN Reason: See Label Comments Stop: 04/21/17 17:58 Famotidine (Pepcid Inj/Pf 20 Mg/2 Ml Sdv) 20 mg IV Q12 KO Stop: 04/21/17 21:59 Glucagon (Glucagen Inj 1 Mg Vial) 1 mg SUBCUT PRN PRN; Protocol PRN Reason: Evaluate for BG < 70 Stop: 04/21/17 17:58 Glucose (Glutose 40% Gel 15 Gm Tube) 15 gm PO PRN PRN; Protocol PRN Reason: For BG 50-69 in Alert Patient Stop: 04/21/17 17:58 Glucose (Glutose 40% Gel 15 Gm Tube) 30 gm PO PRN PRN; Protocol PRN Reason: FOR BG < 50 IN ALERT PATIENT Stop: 04/21/17 17:58 Heparin Sodium (Porcine) (Heparin Inj 5,000 Units/Ml 1 Ml Syringe) 5,000 unit SUBCUT Q8 KO Stop: 04/21/17 21:59 Ciprofloxacin/Dextrose (Cipro Rtu 200 Mg-D5w 100 Ml Premix Bag) 100 mls @ 100 mls/hr IV Q12 KO Stop: 03/29/17 21:59 Lactulose (Cephulac Syrup 20 Gm/30 Ml Udcup) 20 gm ND QID KO Stop: 04/21/17 13:59 Last Admin: 03/22/17 19:00 Dose: Not Given Morphine Sulfate (Morphine 10 Mg/Ml Inj) 3 mg IV .WHILE IN PACU PRN Stop: 03/22/17 18:31 Morphine Sulfate (Morphine 10 Mg/Ml Inj) 2 mg IV Q4HP PRN PRN Reason: FOR PAIN SCALE 2-4 Stop: 03/29/17 17:58 Ondansetron HCl (Zofran Inj/Pf 4 Mg/2 Ml Sdv) 4 mg IV Q4HP PRN Stop: 04/21/17 16:58 Ondansetron HCl (Zofran Inj/Pf 4 Mg/2 Ml Sdv) 4 mg IV Q6HP PRN PRN Reason: FOR NAUSEA/VOMITING Stop: 04/21/17 17:58 Pantoprazole Sodium (Protonix Iv Inj 40 Mg Vial) 40 mg IV Q12@0700,1900 [facility] Stop: 03/25/17 18:59 Sodium Chloride (Saline Flush 2.5 Ml Monoject Prefil Syrin) 2.5 ml IV Q8 [facility] Stop: 04/21/17 21:59 Sodium Chloride (Saline Flush 2.5 Ml Monoject Prefil Syrin) 2.5 ml IV Q8 [facility] Stop: 04/21/17 21:59 - Allergies Allergies/Adverse Reactions: povidone-iodine [From Betadine] Allergy (Verified 03/21/17 15:38) soap [From Betadine] Allergy (Verified 03/21/17 15:38) Penicillins Adverse Reaction (Verified 03/21/17 15:38) "some kind of dialysis filter" Allergy (Uncoded 03/21/17 15:38) Hospital Course Hospital Course: this 51 y /o male with esrd on hd andliverfaulure and s/p on transplant list and recurrent ascites came to er with c/o abd pain and order ctscan an shows incarcerated ventral hernia. pt was transfer to [facility] but await for 12 hrs and still unable to get bed and local surgeon took him or and underwent for hernia repair and mash placement and place in icu pt bp is low and start pressor pt otherwise stable in icu but with multiple medical co morbidity pt await to transfer to [facility] for further evaluation Physical Exam Vital Signs: Temp Pulse Resp BP Pulse Ox 97.9 F 97 11 L 122/14 L 98 03/22/17 19:54 03/22/17 19:54 03/22/17 19:54 03/22/17 19:54 03/22/17 19:54 Intake & Output 03/21/17 03/22/17 03/23/17 06:59 06:59 06:59 Intake Total 750 Output Total 3560 Balance -2810 Weight 62.6 kg General appearance: PRESENT: no acute distress Head exam: PRESENT: atraumatic, normocephalic Eye exam: PRESENT: conjunctiva pink, EOMI, PERRLA. ABSENT: scleral icterus Ear exam: PRESENT: normal external ear exam Mouth exam: PRESENT: moist, tongue midline Neck exam: ABSENT: carotid bruit, JVD, lymphadenopathy, thyromegaly Respiratory exam: PRESENT: clear to auscultation benoit. ABSENT: rales, rhonchi, wheezes Cardiovascular exam: PRESENT: RRR. ABSENT: diastolic murmur, rubs, systolic murmur Pulses: PRESENT: normal dorsalis pedis pul Vascular exam: PRESENT: normal capillary refill GI/Abdominal exam: PRESENT: hypoactive bowel sounds Rectal exam: PRESENT: deferred Extremities exam: PRESENT: full ROM. ABSENT: calf tenderness, clubbing, pedal edema Neurological exam: PRESENT: alert, awake, oriented to person, oriented to place , oriented to time, oriented to situation. ABSENT: motor sensory deficit Psychiatric exam: PRESENT: appropriate affect, normal mood. ABSENT: homicidal ideation, suicidal ideation Skin exam: PRESENT: dry, intact, warm. ABSENT: cyanosis, rash Results Laboratory Results: 03/22/17 17:29 03/22/17 17:29 03/22/17 03/22/17 03/22/17 17:29 17:29 17:29 WBC 9.5 RBC 3.47 L Hgb 11.1 L Hct 32.4 L MCV 93 MCH 31.9 MCHC 34.1 RDW 13.8 Plt Count 176 Seg Neutrophils % 84.2 H Lymphocytes % 5.8 L Monocytes % 7.8 Eosinophils % 1.4 Basophils % 0.8 Absolute Neutrophils 8.0 Absolute Lymphocytes 0.6 Absolute Monocytes 0.7 Absolute Eosinophils 0.1 Absolute Basophils 0.1 Carbonic Acid HCO3/H2CO3 Ratio ABG pH ABG pCO2 ABG pO2 ABG HCO3 ABG O2 Saturation ABG Base Excess FiO2 Sodium 133.3 L Potassium 4.3 Chloride 98 Carbon Dioxide 19 L Anion Gap 16 BUN 39 H Creatinine 5.34 H Est GFR ( Amer) 14 L Est GFR (Non-Af Amer) 11 L Glucose 83 Lactic Acid 3.1 H Calcium 7.7 L 03/22/17 18:28 WBC RBC Hgb Hct MCV MCH MCHC RDW Plt Count Seg Neutrophils % Lymphocytes % Monocytes % Eosinophils % Basophils % Absolute Neutrophils Absolute Lymphocytes Absolute Monocytes Absolute Eosinophils Absolute Basophils Carbonic Acid 0.64 L HCO3/H2CO3 Ratio 19:1 ABG pH 7.38 ABG pCO2 21.4 L ABG pO2 84.9 ABG HCO3 12.5 L ABG O2 Saturation 96.6 ABG Base Excess -11.4 FiO2 ROOM AIR Sodium Potassium Chloride Carbon Dioxide Anion Gap BUN Creatinine Est GFR ( Amer) Est GFR (Non-Af Amer) Glucose Lactic Acid Calcium Impressions: KUB X-Ray 03/21/17 00:00 IMPRESSION: Nasogastric tube tip in subtle project over the region of the stomach. Multiple dilated loops of small bowel noted in the abdomen consistent with small bowel obstruction. Abdomen/Pelvis CT 03/21/17 16:49 IMPRESSION: 1. Multiple dilated loops of proximal small bowel are noted throughout the abdomen. At the ventral hernia side there is a loop of bowel which herniates into the defect. Beyond that the loop in the small bowel is decompressed. This suggest that there is a small bowel obstruction at the site of the ventral hernia. No intra-abdominal free air is identified. There is a significant amount of intra- abdominal flow but this appears to be chronic in nature. No new bowel pneumatosis noted. 2. Uncomplicated colonic diverticulosis. 3. Small left-sided pleural effusion with associated atelectasis. Plan Time Spent: Greater than 30 Minutes - tranfer to [facility]
--- NOTE | 2017-03-22 21:24 | EKG REPORT ---
SEVERITY:- ABNORMAL ECG - SINUS RHYTHM BORDERLINE LEFT AXIS DEVIATION PROBABLE ANTEROSEPTAL INFARCT, AGE INDETERM : Confirmed by: Brittany Nava 22-Mar-2017 21:23:34
[2017-03-22] MEDS: FAMOTIDINE INJ/PF 20 MG/2 ML SDV IV SCH (21:31)
[2017-03-22] MEDS: DEXTROSE 5%-WATER 250 ML with PHENYLEPHRINE HCL 40 MG IV PRN ×2 (21:31)
[2017-03-22] MEDS: HEPARIN SOD (PORCINE) 5,000 UNIT/ML 1 ML SYRINGE SUBCUT SCH (21:33)
[2017-03-22] MEDS ORDERED: CIPROFLOXACIN 200 MG/D5W RTU 100 ML IV SCH (22:00)
[2017-03-22] MEDS ORDERED: PANTOPRAZOLE SODIUM 40 MG VIAL IV ONE (22:00)
[2017-03-22] MEDS ORDERED: NOREPINEPHRINE BITARTRATE INJ/PF 4 MG/4 ML SDV IV ONE ×2 (22:28→22:31)
[2017-03-22] MEDS ORDERED: DEXTROSE 5%-WATER 250 ML with NOREPINEPHRINE BITARTRATE 4 MG IV PRN ×2 (22:37)
[2017-03-23] MEDS: DEXTROSE 5%-WATER 250 ML with PHENYLEPHRINE HCL 40 MG IV PRN ×4 (00:24→04:19)
[2017-03-23] MEDS ORDERED: NOREPINEPHRINE BITARTRATE INJ/PF 4 MG/4 ML SDV IV ONE (04:06)
[2017-03-23 04:36] LABS: HEMATOCRIT 31.1 % (37.9-51.0); HEMOGLOBIN 10.5 g/dL (13.5-17.0); HGB HCT DIFFERENCE 0.4; MEAN CORPUSCULAR HEMOGLOBIN 31.3 pg (27.0-33.4); MEAN CORPUSCULAR HGB CONC 33.8 g/dL (32.0-36.0); MEAN CORPUSCULAR VOLUME 93 fl (80-97); RED BLOOD COUNT 3.36 10^6/uL (4.35-5.55); RED CELL DISTRIBUTION WIDTH 13.8 % (11.5-14.0)
[2017-03-23 04:59] LABS: ALANINE AMINOTRANSFERASE 21 U/L (21-72); ALBUMIN 2.6 g/dL (3.5-5.0); ALKALINE PHOSPHATASE 134 U/L (38-126); ANION GAP 16 (5-19); ASPARTATE AMINO TRANSFERASE 32 U/L (17-59); BILIRUBIN,DIRECT 1.6 mg/dL (0.0-0.4); BILIRUBIN,TOTAL 2.4 mg/dL (0.2-1.3); BLOOD UREA NITROGEN 46 mg/dL (7-20); CALCIUM 7.8 mg/dL (8.4-10.2); CARBON DIOXIDE 18 mmol/L (22-30); CHLORIDE 94 mmol/L (98-107); CREATININE RESULT 6.22 mg/dL (0.52-1.25); GLUCOSE 141 mg/dL (75-110); MAGNESIUM 2.5 mg/dL (1.6-2.3); POTASSIUM 5.2 mmol/L (3.6-5.0); SODIUM 128.4 mmol/L (137-145); TOTAL PROTEIN 6.2 g/dL (6.3-8.2)
[2017-03-23 05:08] LABS: ARTERIAL BLOOD BASE EXCESS -3.8 mmol/L; ARTERIAL BLOOD O2 SATURATION 96.3 % (94-98)
[2017-03-23] MEDS: HEPARIN SOD (PORCINE) 5,000 UNIT/ML 1 ML SYRINGE SUBCUT SCH ×2 (06:16→14:44)
[2017-03-23] MEDS: PANTOPRAZOLE SODIUM 40 MG VIAL IV SCH ×2 (06:17→18:49)
--- NOTE | 2017-03-23 07:13 | EKG REPORT ---
SEVERITY:- OTHERWISE NORMAL ECG - SINUS RHYTHM BORDERLINE LEFT AXIS DEVIATION : Confirmed by: Brittany Nava 23-Mar-2017 07:12:06
--- NOTE | 2017-03-23 07:52 | PDOC CONSULTATION ---
Consultation Consult Date: 03/23/17 Consult reason:: ESRD patient with acute bowel obstruction in the setting of obstructed ventral hernia and s/p emergent lap History of Present Illness Admission Date/PCP: 03/22/17 16:59 MILADY TOURE MD History of Present Illness: ANITA HASTINGS JR is a 51 year old male Presented to the emergency room late last evening with complaints of periumbilical abdominal pain. The patient had a known recurrent ventral hernia that apparently was a result of a failed umbilical herniorrhaphy in the past. Patient stated that whenever he would stand the hernia would fill with his abdominal contents. He stated that when he would lay flat it would always resolve and his abdomen would become flat. He stated that yesterday he began having pain in this area. He stated that he then began just prior to coming to the emergency room began having episodes of nausea and vomiting. Nursing states that once an NG tube was placed in the emergency room that he had over 1 L of gastric contents that were evacuated. The patient states he had a normal bowel movement yesterday after taking his lactulose. The patient elicits a history of having the recurrent ventral hernia reevaluated by his surgeons at [facility]. The patient has hepatic failure secondary to EtOH abuse and is currently on a potential list for liver transplant. His hepatic failure has led to end-stage renal failure for which the patient undergoes dialysis 3 days a week. Apparently when his surgeon was contacted concerning this hernia the patient was told "never let anyone else operate on this except for the people here at [place]." Subsequently the patient has been putting up with the hernia for some time now. Apparently the emergency room physician last night had initially reduced the hernia however it has reoccurred causing him increasing pain. The patient was subsequently taken to surgery and postoperatively was extubated he is currently in the ICU in stable condition Past Medical History Cardiac Medical History: Reports: Heart Murmur, Other - Positive for aortic stenosis Denies: Coronary Artery Disease, Myocardial Infarction Pulmonary Medical History: Reports: Asthma - as a child, Pneumonia - 05/2016 Denies: Bronchitis, Chronic Obstructive Pulmonary Disease (COPD) Neurological Medical History: Denies: Seizures Complications of Diabetes: Reports: None Renal/ Medical History: Reports: End Stage Renal Disease GI Medical History: Reports: Cirrhosis, Other - Secondary to EtOH abuse Musculoskeltal Medical History: Reports: Arthritis Psychiatric Medical History: Reports: Alcohol Dependency Traumatic Medical History: Reports: None Hematology Medical History: Reports Anemia of Chronic Kidney Disease Past Surgical History Past Surgical History: Reports: Herniorrhaphy - Umbilical herniorrhaphy, right inguinal herniorrhaphy, Vascular Surgery - left fistula Social History Smoking Status: Unknown if Ever Smoked Frequency of Alcohol Use: Heavy - None since April 2015, prior to that heavy daily use. Hx Recreational Drug Use: No Drugs: None Hx Prescription Drug Abuse: No - Advance Directive Resuscitation Status: Full Code Family History Parental Family History Reviewed: Yes - negative for esrd Children Family History Reviewed: Yes Sibling(s) Family History Reviewed.: Yes Medication/Allergy Home Medications: Gabapentin [Neurontin 300 mg Capsule] 300 mg PO Q12 03/22/17 Lactulose [Kristalose 20 gm Packet] 20 gm PO TID 03/22/17 Midodrine HCl [Proamatine 5 mg Tablet] 10 mg PO .ASDIR PRN 03/22/17 Pantoprazole Sodium [Protonix] 40 mg PO DAILY 03/22/17 Rifaximin [Xifaxan 200 mg Tablet] 550 mg PO Q12 03/22/17 Sevelamer HCl [Renagel] 1,600 mg PO MEALS 03/22/17 Allergies/Adverse Reactions: povidone-iodine [From Betadine] Allergy (Verified 03/21/17 15:38) soap [From Betadine] Allergy (Verified 03/21/17 15:38) Penicillins Adverse Reaction (Verified 03/21/17 15:38) "some kind of dialysis filter" Allergy (Uncoded 03/21/17 15:38) Physical Exam Vital Signs: Temp Pulse Resp BP Pulse Ox 98.0 F 109 H 17 115/23 L 96 03/23/17 06:00 03/23/17 06:00 03/23/17 06:41 03/23/17 06:41 03/23/17 06:41 Intake & Output 03/22/17 03/23/17 03/24/17 06:59 06:59 06:59 Intake Total 1123 Output Total 25 Balance 1098 Weight 63.4 kg General appearance: PRESENT: no acute distress - post operative, talking , minimal pains Eye exam: PRESENT: conjunctiva pink, EOMI, PERRLA, scleral icterus. ABSENT: nystagmus Ear exam: PRESENT: normal external ear exam Mouth exam: PRESENT: moist, neck supple Neck exam: PRESENT: lymphadenopathy. ABSENT: meningismus, tenderness, thyromegaly, tracheal deviation Respiratory exam: PRESENT: clear to auscultation benoit. ABSENT: crackles, rhonchi Cardiovascular exam: PRESENT: +S1, +S2, systolic murmur Neurological exam: PRESENT: alert, awake, oriented to person, oriented to place , oriented to time Results Laboratory Results: 03/23/17 04:00 03/23/17 04:00 03/22/17 03/22/17 03/22/17 17:29 17:29 17:29 WBC 9.5 RBC 3.47 L Hgb 11.1 L Hct 32.4 L MCV 93 MCH 31.9 MCHC 34.1 RDW 13.8 Plt Count 176 Seg Neutrophils % 84.2 H Lymphocytes % 5.8 L Monocytes % 7.8 Eosinophils % 1.4 Basophils % 0.8 Absolute Neutrophils 8.0 Absolute Lymphocytes 0.6 Absolute Monocytes 0.7 Absolute Eosinophils 0.1 Absolute Basophils 0.1 Carbonic Acid HCO3/H2CO3 Ratio ABG pH ABG pCO2 ABG pO2 ABG HCO3 ABG O2 Saturation ABG Base Excess FiO2 Sodium 133.3 L Potassium 4.3 Chloride 98 Carbon Dioxide 19 L Anion Gap 16 BUN 39 H Creatinine 5.34 H Est GFR ( Amer) 14 L Est GFR (Non-Af Amer) 11 L Glucose 83 Lactic Acid 3.1 H Calcium 7.7 L Magnesium Total Bilirubin AST ALT Alkaline Phosphatase Ammonia Total Protein Albumin 03/22/17 03/23/17 03/23/17 18:28 04:00 04:00 WBC 13.0 H RBC 3.36 L Hgb 10.5 L Hct 31.1 L MCV 93 MCH 31.3 MCHC 33.8 RDW 13.8 Plt Count 259 Seg Neutrophils % Lymphocytes % Monocytes % Eosinophils % Basophils % Absolute Neutrophils Absolute Lymphocytes Absolute Monocytes Absolute Eosinophils Absolute Basophils Carbonic Acid 0.64 L HCO3/H2CO3 Ratio 19:1 ABG pH 7.38 ABG pCO2 21.4 L ABG pO2 84.9 ABG HCO3 12.5 L ABG O2 Saturation 96.6 ABG Base Excess -11.4 FiO2 ROOM AIR Sodium 128.4 L Potassium 5.2 H Chloride 94 L Carbon Dioxide 18 L Anion Gap 16 BUN 46 H Creatinine 6.22 H Est GFR ( Amer) 11 L Est GFR (Non-Af Amer) 9 L Glucose 141 H Lactic Acid Calcium 7.8 L Magnesium 2.5 H Total Bilirubin 2.4 H AST 32 ALT 21 Alkaline Phosphatase 134 H Ammonia Total Protein 6.2 L Albumin 2.6 L 03/23/17 03/23/17 03/23/17 04:00 04:00 04:29 WBC RBC Hgb Hct MCV MCH MCHC RDW Plt Count Seg Neutrophils % Lymphocytes % Monocytes % Eosinophils % Basophils % Absolute Neutrophils Absolute Lymphocytes Absolute Monocytes Absolute Eosinophils Absolute Basophils Carbonic Acid 1.03 L HCO3/H2CO3 Ratio 19:1 ABG pH 7.39 ABG pCO2 34.2 L ABG pO2 83.9 ABG HCO3 20.3 ABG O2 Saturation 96.3 ABG Base Excess -3.8 FiO2 2L Sodium Potassium Chloride Carbon Dioxide Anion Gap BUN Creatinine Est GFR ( Amer) Est GFR (Non-Af Amer) Glucose Lactic Acid 2.3 H Calcium Magnesium Total Bilirubin AST ALT Alkaline Phosphatase Ammonia 51.3 H Total Protein Albumin Impressions: KUB X-Ray 03/21/17 00:00 IMPRESSION: Nasogastric tube tip in subtle project over the region of the stomach. Multiple dilated loops of small bowel noted in the abdomen consistent with small bowel obstruction. Abdomen/Pelvis CT 03/21/17 16:49 IMPRESSION: 1. Multiple dilated loops of proximal small bowel are noted throughout the abdomen. At the ventral hernia side there is a loop of bowel which herniates into the defect. Beyond that the loop in the small bowel is decompressed. This suggest that there is a small bowel obstruction at the site of the ventral hernia. No intra-abdominal free air is identified. There is a significant amount of intra- abdominal flow but this appears to be chronic in nature. No new bowel pneumatosis noted. 2. Uncomplicated colonic diverticulosis. 3. Small left-sided pleural effusion with associated atelectasis. Assessment & Plan - Diagnosis (1) Aortic stenosis Qualifiers: Cardiac valve disease etiology: nonrheumatic Qualified Code(s): I35.0 - Nonrheumatic aortic (valve) stenosis Is this a current diagnosis for this admission?: Yes (2) End stage renal disease on dialysis Is this a current diagnosis for this admission?: YesPlan: patient was seen later on HD and is doing well. Will remove 500 cc on fluids only as tolerated. VS stable .Orders discussed with treating RN Akilah. (3) Hepatic failure due to alcoholism Is this a current diagnosis for this admission?: YesPlan: Liver cirrhosis awaiting transplant. (4) Small bowel obstruction Is this a current diagnosis for this admission?: YesPlan: S/P emergent surgery with reduction and has done well. (5) Ventral hernia Qualifiers: Obstruction and gangrene presence: with obstruction but without gangrene Qualified Code(s): K43.6 - Other and unspecified ventral hernia with obstruction, without gangrene Is this a current diagnosis for this admission?: YesPlan: with obstructed bowels. S/P successful surgery. (6) Incarcerated umbilical hernia Is this a current diagnosis for this admission?: YesPlan: s/p Surgery and doing well. (7) Hyponatremia Plan: convert vehicles for pressors to ns. Will dialyse now as well. Discussed with treating SUE Huang. (8) Hyperkalemia Plan: Will get him dialysed now.
[2017-03-23] MEDS ORDERED: NORMAL SALINE 1000 ML 1,000 ML IV PRN ×2 (07:59→08:07)
[2017-03-23] MEDS ORDERED: NORMAL SALINE 250 ML with NOREPINEPHRINE BITARTRATE 4 MG IV PRN ×2 (08:10)
--- NOTE | 2017-03-23 08:11 | RADIOLOGY REPORT (SQ) ---
EXAM DESCRIPTION: CHEST SINGLE VIEW COMPLETED DATE/TIME: 03/23/2017 6:57 am REASON FOR STUDY: COPD COMPARISON: 03/21/2017. CT, 03/21/2017. EXAM PARAMETERS: NUMBER OF VIEWS: One view. TECHNIQUE: Single frontal radiographic view of the chest acquired. RADIATION DOSE: NA LIMITATIONS: None. FINDINGS: LUNGS AND PLEURA: Moderate left basilar opacity. Moderate central pulmonary edema pattern . Moderate -small lung volumes. MEDIASTINUM AND HILAR STRUCTURES: No masses. Contour normal. HEART AND VASCULAR STRUCTURES: Heart normal in size. Normal vasculature. BONES: No acute findings. HARDWARE: Likely adequate NG tube partially imaged. OTHER: Possible moderate to large right subdiaphragmatic free air. IMPRESSION: 1. Moderate to large right subdiaphragmatic luceny may indicate FREE AIR due to bowel r upture and/or postsurgical changes. 2. Worsened left lower lung opacity. NG tube. COMMENT: This report was called to ROB PONCE MD at07:58 on 03/23/2017. TECHNICAL DOCUMENTATION: JOB ID: [id number]
[2017-03-23] MEDS ORDERED: DEXTROSE 5%-WATER 250 ML with NOREPINEPHRINE BITARTRATE 4 MG IV PRN ×2 (08:27)
[2017-03-23] MEDS ORDERED: FUROSEMIDE INJ/PF 20 MG/2 ML SDV IV SCH (10:00)
[2017-03-23] MEDS ORDERED: CIPROFLOXACIN 200 MG/D5W RTU 100 ML IV SCH (10:00)
--- NOTE | 2017-03-23 10:28 | PDOC PROGRESS REPORT ---
Subjective Progress Note for:: 03/23/17 Subjective:: Patient's status post surgery for the incarcerated hernia repair and pretty much did very well. Patient is more alert awake and denied any painPatient's blood pressure is still in the lower range and required a pressor Patient usually running a low blood pressures all the times Patient still waiting for the transport to the [facility] 7 phone call made yesterday at night still waiting for the ICU bed Patient seen by the nephrology this morning and also seen by the pulmonary Still have NG tube but patients passing the gas and patient have a good bowel sound Physical Exam Vital Signs: Temp Pulse Resp BP Pulse Ox 97.6 F 102 H 20 104/36 L 93 03/23/17 07:52 03/23/17 07:52 03/23/17 07:52 03/23/17 07:52 03/23/17 07:52 Intake & Output 03/22/17 03/23/17 03/24/17 06:59 06:59 06:59 Intake Total 1123 Output Total 25 0 Balance 1098 0 Weight 63.4 kg General appearance: PRESENT: no acute distress Eye exam: PRESENT: PERRLA Mouth exam: PRESENT: neck supple Respiratory exam: PRESENT: clear to auscultation benoit Cardiovascular exam: PRESENT: +S1, +S2 GI/Abdominal exam: PRESENT: ascites, normal bowel sounds, soft, other Additonal comments: dressing intact Extremities exam: ABSENT: pedal edema Neurological exam: PRESENT: alert, awake, oriented to person, oriented to place , oriented to time, oriented to situation Results Laboratory Results: 03/23/17 04:00 03/23/17 04:00 03/22/17 03/22/17 03/22/17 17:29 17:29 17:29 WBC 9.5 RBC 3.47 L Hgb 11.1 L Hct 32.4 L MCV 93 MCH 31.9 MCHC 34.1 RDW 13.8 Plt Count 176 Seg Neutrophils % 84.2 H Lymphocytes % 5.8 L Monocytes % 7.8 Eosinophils % 1.4 Basophils % 0.8 Absolute Neutrophils 8.0 Absolute Lymphocytes 0.6 Absolute Monocytes 0.7 Absolute Eosinophils 0.1 Absolute Basophils 0.1 Carbonic Acid HCO3/H2CO3 Ratio ABG pH ABG pCO2 ABG pO2 ABG HCO3 ABG O2 Saturation ABG Base Excess FiO2 Sodium 133.3 L Potassium 4.3 Chloride 98 Carbon Dioxide 19 L Anion Gap 16 BUN 39 H Creatinine 5.34 H Est GFR ( Amer) 14 L Est GFR (Non-Af Amer) 11 L Glucose 83 Lactic Acid 3.1 H Calcium 7.7 L Magnesium Total Bilirubin AST ALT Alkaline Phosphatase Ammonia Total Protein Albumin 03/22/17 03/23/17 03/23/17 18:28 04:00 04:00 WBC 13.0 H RBC 3.36 L Hgb 10.5 L Hct 31.1 L MCV 93 MCH 31.3 MCHC 33.8 RDW 13.8 Plt Count 259 Seg Neutrophils % Lymphocytes % Monocytes % Eosinophils % Basophils % Absolute Neutrophils Absolute Lymphocytes Absolute Monocytes Absolute Eosinophils Absolute Basophils Carbonic Acid 0.64 L HCO3/H2CO3 Ratio 19:1 ABG pH 7.38 ABG pCO2 21.4 L ABG pO2 84.9 ABG HCO3 12.5 L ABG O2 Saturation 96.6 ABG Base Excess -11.4 FiO2 ROOM AIR Sodium 128.4 L Potassium 5.2 H Chloride 94 L Carbon Dioxide 18 L Anion Gap 16 BUN 46 H Creatinine 6.22 H Est GFR ( Amer) 11 L Est GFR (Non-Af Amer) 9 L Glucose 141 H Lactic Acid Calcium 7.8 L Magnesium 2.5 H Total Bilirubin 2.4 H AST 32 ALT 21 Alkaline Phosphatase 134 H Ammonia Total Protein 6.2 L Albumin 2.6 L 03/23/17 03/23/17 03/23/17 04:00 04:00 04:29 WBC RBC Hgb Hct MCV MCH MCHC RDW Plt Count Seg Neutrophils % Lymphocytes % Monocytes % Eosinophils % Basophils % Absolute Neutrophils Absolute Lymphocytes Absolute Monocytes Absolute Eosinophils Absolute Basophils Carbonic Acid 1.03 L HCO3/H2CO3 Ratio 19:1 ABG pH 7.39 ABG pCO2 34.2 L ABG pO2 83.9 ABG HCO3 20.3 ABG O2 Saturation 96.3 ABG Base Excess -3.8 FiO2 2L Sodium Potassium Chloride Carbon Dioxide Anion Gap BUN Creatinine Est GFR ( Amer) Est GFR (Non-Af Amer) Glucose Lactic Acid 2.3 H Calcium Magnesium Total Bilirubin AST ALT Alkaline Phosphatase Ammonia 51.3 H Total Protein Albumin Impressions: KUB X-Ray 03/21/17 00:00 IMPRESSION: Nasogastric tube tip in subtle project over the region of the stomach. Multiple dilated loops of small bowel noted in the abdomen consistent with small bowel obstruction. Abdomen/Pelvis CT 03/21/17 16:49 IMPRESSION: 1. Multiple dilated loops of proximal small bowel are noted throughout the abdomen. At the ventral hernia side there is a loop of bowel which herniates into the defect. Beyond that the loop in the small bowel is decompressed. This suggest that there is a small bowel obstruction at the site of the ventral hernia. No intra-abdominal free air is identified. There is a significant amount of intra- abdominal flow but this appears to be chronic in nature. No new bowel pneumatosis noted. 2. Uncomplicated colonic diverticulosis. 3. Small left-sided pleural effusion with associated atelectasis. Chest X-Ray 03/23/17 06:00 IMPRESSION: 1. Moderate to large right subdiaphragmatic luceny may indicate FREE AIR due to bowel rupture and/or postsurgical changes. 2. Worsened left lower lung opacity. NG tube. Assessment & Plan - Diagnosis (1) End stage renal disease on dialysis Is this a current diagnosis for this admission?: YesPlan: Follow with the nephrology (2) Hepatic failure due to alcoholism Is this a current diagnosis for this admission?: YesPlan: Currently stableWill check the ammonia level today (3) Small bowel obstruction Is this a current diagnosis for this admission?: YesPlan: Status post surgery and hernia repair follow with the surgery (4) Ventral hernia Qualifiers: Obstruction and gangrene presence: with obstruction but without gangrene Qualified Code(s): K43.6 - Other and unspecified ventral hernia with obstruction, without gangrene Is this a current diagnosis for this admission?: YesPlan: Status post repair (5) Incarcerated umbilical hernia Is this a current diagnosis for this admission?: Yes (6) Aortic stenosis Qualifiers: Cardiac valve disease etiology: nonrheumatic Qualified Code(s): I35.0 - Nonrheumatic aortic (valve) stenosis Is this a current diagnosis for this admission?: YesPlan: Recently echocardiogram was done yesterday and follow with the cardiology currently patients denied any cardiac complaints (7) Ascites Qualifiers: Ascites type: due to alcoholic cirrhosis Qualified Code(s): K70.31 - Alcoholic cirrhosis of liver with ascites Is this a current diagnosis for this admission?: YesPlan: Currently stable (8) Hypotension Qualifiers: Hypotension type: unspecified hypotension type Qualified Code(s): I95.9 - Hypotension, unspecified Is this a current diagnosis for this admission?: YesPlan: Due to the recent surgery and infections but patient always running low patient is taking the Midrin 10 mg 3 tPatient's currently on pressor support And we will try to wean off pressor support while patient is currently doing well as per discussed with the nephrology and if the surgery is okay will be a restart the patient's p.o. medications. 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
[2017-03-23] MEDS: FAMOTIDINE INJ/PF 20 MG/2 ML SDV IV SCH (10:52)
[2017-03-23] MEDS: LACTULOSE SYRUP 20 GM/30 ML UDCUP PR SCH ×3 (10:56→17:48)
--- NOTE | 2017-03-23 12:22 | PDOC CONSULTATION ---
Consultation Consult Date: 03/22/17 Attending physician:: MILADY TOURE Consult reason:: sepsis/resp failure History of Present Illness Admission Date/PCP: 03/22/17 13:16 MILADY TOURE MD History of Present Illness: ANITA HASTINGS JR is a 51 year old male Presented to the emergency room late last evening with complaints of periumbilical abdominal pain. The patient had a known recurrent ventral hernia that apparently was a result of a failed umbilical herniorrhaphy in the past. Patient stated that whenever he would stand the hernia would fill with his abdominal contents. He stated that when he would lay flat it would always resolve and his abdomen would become flat. He stated that yesterday he began having pain in this area. He stated that he then began just prior to coming to the emergency room began having episodes of nausea and vomiting. Nursing states that once an NG tube was placed in the emergency room that he had over 1 L of gastric contents that were evacuated. The patient states he had a normal bowel movement yesterday after taking his lactulose. The patient elicits a history of having the recurrent ventral hernia reevaluated by his surgeons at [facility]. The patient has hepatic failure secondary to EtOH abuse and is currently on a potential list for liver transplant. His hepatic failure has led to end-stage renal failure for which the patient undergoes dialysis 3 days a week. Apparently when his surgeon was contacted concerning this hernia the patient was told "never let anyone else operate on this except for the people here at [place]." Subsequently the patient has been putting up with the hernia for some time now. Apparently the emergency room physician last night had initially reduced the hernia however it has reoccurred causing him increasing pain. The patient was subsequently taken to surgery and postoperatively was extubated he is currently in the ICU in stable condition Past Medical History Cardiac Medical History: Reports: Heart Murmur, Other - Positive for aortic stenosis Denies: Coronary Artery Disease, Myocardial Infarction, Hypertension - hypotension Pulmonary Medical History: Reports: Asthma - as a child, Pneumonia - 05/2016 Denies: Bronchitis, Chronic Obstructive Pulmonary Disease (COPD) Neurological Medical History: Denies: Seizures Renal/ Medical History: Reports: End Stage Renal Disease GI Medical History: Reports: Cirrhosis, Other - Secondary to EtOH abuse Musculoskeltal Medical History: Reports: Arthritis Psychiatric Medical History: Reports: Alcohol Dependency Traumatic Medical History: Reports: None Hematology: Reports: Anemia Past Surgical History Past Surgical History: Reports: Herniorrhaphy - Umbilical herniorrhaphy, right inguinal herniorrhaphy, Vascular Surgery - left fistula Social History Smoking Status: Unknown if Ever Smoked Frequency of Alcohol Use: Heavy - None since April 2015, prior to that heavy daily use. Drugs: None - Advance Directive Resuscitation Status: Full Code Family History Family History: CAD, DM, Malignancy - Mother uterine cancer. Parental Family History Reviewed: No Children Family History Reviewed: No Sibling(s) Family History Reviewed.: No Medication/Allergy Home Medications: Gabapentin [Neurontin 300 mg Capsule] 300 mg PO Q12 03/22/17 Lactulose [Kristalose 20 gm Packet] 20 gm PO TID 03/22/17 Levothyroxine Sodium [Synthroid 0.025 mg Tablet] 0.025 mg PO Q2DAYS 03/22/17 Midodrine HCl [Proamatine 5 mg Tablet] 10 mg PO .ASDIR PRN 03/22/17 Pantoprazole Sodium [Protonix] 40 mg PO DAILY 03/22/17 Rifaximin [Xifaxan 200 mg Tablet] 550 mg PO Q12 03/22/17 Sevelamer HCl [Renagel] 1,600 mg PO MEALS 03/22/17 Allergies/Adverse Reactions: povidone-iodine [From Betadine] Allergy (Verified 03/21/17 15:38) soap [From Betadine] Allergy (Verified 03/21/17 15:38) Penicillins Adverse Reaction (Verified 03/21/17 15:38) "some kind of dialysis filter" Allergy (Uncoded 03/21/17 15:38) Physical Exam Vital Signs: Temp Pulse Resp BP Pulse Ox 98.7 F 86 17 95/37 L 99 03/22/17 12:54 03/22/17 12:54 03/22/17 13:01 03/22/17 13:01 03/22/17 13:01 Intake & Output 03/21/17 03/22/17 03/23/17 06:59 06:59 06:59 Intake Total 0 Balance 0 General appearance: PRESENT: no acute distress, cooperative, disheveled, thin, well-developed Head exam: PRESENT: atraumatic, normocephalic Eye exam: PRESENT: conjunctiva pale, EOMI Mouth exam: PRESENT: dry mucosa, neck supple, tongue midline Neck exam: ABSENT: carotid bruit, JVD, lymphadenopathy, thyromegaly Respiratory exam: PRESENT: prolonged expiratory phas, rhonchi, symmetrical, unlabored Cardiovascular exam: PRESENT: RRR, +S1, +S2 Pulses: PRESENT: normal radial pulses - thready GI/Abdominal exam: PRESENT: other - s/p surgery Rectal exam: PRESENT: deferred Gentrourinary exam: PRESENT: indwelling catheter Musculoskeletal exam: PRESENT: normal inspection Neurological exam: PRESENT: alert, awake Psychiatric exam: PRESENT: normal mood Skin exam: PRESENT: dry, warm Results Impressions: KUB X-Ray 03/21/17 00:00 IMPRESSION: Nasogastric tube tip in subtle project over the region of the stomach. Multiple dilated loops of small bowel noted in the abdomen consistent with small bowel obstruction. Abdomen/Pelvis CT 03/21/17 16:49 IMPRESSION: 1. Multiple dilated loops of proximal small bowel are noted throughout the abdomen. At the ventral hernia side there is a loop of bowel which herniates into the defect. Beyond that the loop in the small bowel is decompressed. This suggest that there is a small bowel obstruction at the site of the ventral hernia. No intra-abdominal free air is identified. There is a significant amount of intra- abdominal flow but this appears to be chronic in nature. No new bowel pneumatosis noted. 2. Uncomplicated colonic diverticulosis. 3. Small left-sided pleural effusion with associated atelectasis. Assessment & Plan - Diagnosis (1) End stage renal disease on dialysis Is this a current diagnosis for this admission?: YesPlan: as per nephrology (2) Hepatic failure due to alcoholism Is this a current diagnosis for this admission?: YesPlan: schedule to go to [facility] (3) Small bowel obstruction Is this a current diagnosis for this admission?: Yes (4) Incarcerated umbilical hernia Is this a current diagnosis for this admission?: Yes - Time Critical Time spent with patient: 35 or more minutes - 50 min
[2017-03-23] MEDS: NORMAL SALINE 250 ML with PHENYLEPHRINE HCL 40 MG IV PRN ×4 (12:55→16:42)
[2017-03-23 13:02] LABS: PROTHROMBIN TIME 16.7 SEC (11.4-15.4)
[2017-03-23 13:20] LABS: ANION GAP 14 (5-19); BLOOD UREA NITROGEN 49 mg/dL (7-20); CALCIUM 7.5 mg/dL (8.4-10.2); CARBON DIOXIDE 17 mmol/L (22-30); CHLORIDE 94 mmol/L (98-107); CREATININE RESULT 6.68 mg/dL (0.52-1.25); GLUCOSE 119 mg/dL (75-110); POTASSIUM 5.2 mmol/L (3.6-5.0); SODIUM 124.7 mmol/L (137-145)
[2017-03-23] MEDS ORDERED: METRONIDAZOLE 250 MG in NORMAL SALINE 50 ML IV SCH (14:00)
[2017-03-23] MEDS ORDERED: METRONIDAZOLE 500 MG/NS RTU 250 MG in CONTAINER,EMPTY 1 EACH IV SCH (14:00)
--- NOTE | 2017-03-23 14:14 | PROGRESS NOTE E ---
Progress Note NAME: AINTA HASTINGS : 1965 AGE: 51Y DATE: 03/23/2017 ROOM: 608 SUBJECTIVE: Note that the patient had his emergency laparotomy yesterday and had release of the incarcerated ventral hernia, small bowel loop incarcerated in the ventral hernia. Last night, he was hypotensive and was started on initially christian-synephrine and subsequently was started on Levophed. Now, the patient is off Levophed and is on Christian-Synephrine at 130 mcg/min. The patient denies any chest pain or discomfort. There is no PND, orthopnea. There is no leg edema. There is no arrhythmia seen on the monitor. There is no TIA or CVA symptoms. There is no bleeding complications. The patient has some mild pain at the site of surgery, but otherwise looks comfortable. OBJECTIVE: GENERAL: On examination, the patient is in no acute distress. He appears to be chronically ill and has features of a cirrhotic patient. VITAL SIGNS: He is afebrile with a temperature of 98 degrees Fahrenheit, his pulse is 112 beats per minute, blood pressure 102/81. The patient is on Christian-Synephrine at 140 mcg/min. He is off the Levophed. His respirations are 16 per minute, O2 sats are 92% on room air. HEAD: Atraumatic, normocephalic. HEENT: Eyes: Pupils are equal, round, regular, and reactive to light and accommodation. Extraocular movements are normal. There is no conjunctival pallor. There is no sclerae icterus. ENT: Negative. NECK: Supple. There is no JVD. Carotids are equal. There are no bruits. There is no lymphadenopathy. There is no goiter. Trachea is central. LUNGS: Clear to auscultation and percussion. HEART: S1 and S2 are heard. There is no S3 gallop. There is no S4 gallop. There is a systolic murmur of aortic stenosis *------*. This is a 3/6 murmur with a soft A2. There is a murmur of aortic regurgitation present. There are some peripheral signs of aortic regurgitation such as distal short femorals and collapsing pulse. ABDOMEN: Soft. Bowel sounds are slightly decreased. Dressing is dry. There is no hepatosplenomegaly. There is ascites present. EXTREMITIES: Leg pulses are decreased. Femorals are diminished. There are no femoral bruits. There is no pedal edema. There is no DVT or cellulitis. There is no calf tenderness. There is no cyanosis or clubbing. CENTRAL NERVOUS SYSTEM: The patient is conscious, awake, alert, oriented x3 with no focal deficits. PSYCHIATRIC: The patient's judgment and insight are intact. His affect is normal. INTAKE/OUTPUT: The patient's 24-hour intake is 1,973 mL; output is 3,585 mL. DIAGNOSTIC DATA: The patient's laboratory data shows a white count of 13,000; hemoglobin is 10.5; hematocrit is 31.1; platelet count is 259,000. The patient's sodium is 128.4, potassium 5.2, chloride 94, CO2 is 18. The patient's BUN is 46, creatinine 6.22, GFR is reduced at 9 mL per hour, which is end-stage renal disease, glucose is 141. The patient's magnesium is high at 2.5. His calcium is 7.8. His total bilirubin is 2.4, his direct bilirubin is 1.6, which is high. His ALT and AST are normal. His alk phos is elevated at 134. His ammonia is 51.3, which is high. His total protein is 6.2, albumin is 2.6. The patient's ABG shows a pH of 7.39, pCO2 is 34.2, PO2 is 83.9, and his O2 sats are 96.3 and this is on 2 L nasal cannula. IMPRESSION: 1. STATUS POST EMERGENCY SURGERY FOR INCARCERATED SMALL BOWEL AND VENTRAL HERNIA/SMALL BOWEL OBSTRUCTION. 2. HYPOTENSION. Patient on pressors. Blood pressure at present stable at 102/61. The patient has no signs of shock. The patient is awake, alert, oriented x3. 3. AORTIC STENOSIS, SEVERE. 4. MODERATE AORTIC REGURGITATION. 5. CIRRHOSIS OF THE LIVER WITH ASCITES. Patient on the transplant list. 6. END-STAGE RENAL DISEASE, ON HEMODIALYSIS. RECOMMENDATIONS: Note that Dr. Kim, the pediatrician, wants the patient's blood pressure above 100, so that he can dialyze him. Continue antibiotics. Watch out for heart failure. The patient is not in heart failure as yet. Continue heparin 5,000 subcutaneously q. 8 hours for DVT prophylaxis. Continue Lisinopril and try to wean off the Lisinopril. Note that 30 minutes were spent on this patient with more than 50% of that time spent in direct patient care. His medications have been reviewed and discussions with the other caregiving providers on the case and coordination of care done. This is a highly complex medical decision making case in view of the patient having severe aortic stenosis, moderate aortic regurgitation, hypotension, cirrhosis of the liver, and end-stage renal disease. Continue antibiotics. Note that the patient is awaiting a bed in [place] for transfer there. Will follow with you. Coordination of care done with the other caregiving providers on the case. DICTATING PHYSICIAN: LUIS AN M.D. [id number] PHY#: [id number] ID: [id number] JOB#: [id number] ACCT: [id number] cc: >
--- NOTE | 2017-03-23 15:17 | PDOC PROGRESS REPORT ---
Subjective Progress Note for:: 03/23/17 Subjective:: Patient awake and alert and states that he feels great. Hungry. Physical Exam Vital Signs: Temp Pulse Resp BP Pulse Ox 98.4 F 108 H 19 98/39 L 93 03/23/17 14:00 03/23/17 14:00 03/23/17 14:27 03/23/17 14:27 03/23/17 14:27 Intake & Output 03/22/17 03/23/17 03/24/17 06:59 06:59 06:59 Intake Total 1123 Output Total 25 0 Balance 1098 0 Weight 63.4 kg General appearance: PRESENT: no acute distress, cooperative Respiratory exam: PRESENT: clear to auscultation benoit Cardiovascular exam: PRESENT: tachycardia - Heart rate 106 GI/Abdominal exam: PRESENT: other - Soft, nondistended, minimal tenderness. Drain output is bloody. But in small amount Neurological exam: PRESENT: alert, awake Psychiatric exam: PRESENT: appropriate affect Results Laboratory Results: 03/23/17 04:00 03/23/17 12:41 03/22/17 03/22/17 03/22/17 17:29 17:29 17:29 WBC 9.5 RBC 3.47 L Hgb 11.1 L Hct 32.4 L MCV 93 MCH 31.9 MCHC 34.1 RDW 13.8 Plt Count 176 Seg Neutrophils % 84.2 H Lymphocytes % 5.8 L Monocytes % 7.8 Eosinophils % 1.4 Basophils % 0.8 Absolute Neutrophils 8.0 Absolute Lymphocytes 0.6 Absolute Monocytes 0.7 Absolute Eosinophils 0.1 Absolute Basophils 0.1 Carbonic Acid HCO3/H2CO3 Ratio ABG pH ABG pCO2 ABG pO2 ABG HCO3 ABG O2 Saturation ABG Base Excess FiO2 Sodium 133.3 L Potassium 4.3 Chloride 98 Carbon Dioxide 19 L Anion Gap 16 BUN 39 H Creatinine 5.34 H Est GFR ( Amer) 14 L Est GFR (Non-Af Amer) 11 L Glucose 83 Lactic Acid 3.1 H Calcium 7.7 L Magnesium Total Bilirubin AST ALT Alkaline Phosphatase Ammonia Total Protein Albumin 03/22/17 03/23/17 03/23/17 18:28 04:00 04:00 WBC 13.0 H RBC 3.36 L Hgb 10.5 L Hct 31.1 L MCV 93 MCH 31.3 MCHC 33.8 RDW 13.8 Plt Count 259 Seg Neutrophils % Lymphocytes % Monocytes % Eosinophils % Basophils % Absolute Neutrophils Absolute Lymphocytes Absolute Monocytes Absolute Eosinophils Absolute Basophils Carbonic Acid 0.64 L HCO3/H2CO3 Ratio 19:1 ABG pH 7.38 ABG pCO2 21.4 L ABG pO2 84.9 ABG HCO3 12.5 L ABG O2 Saturation 96.6 ABG Base Excess -11.4 FiO2 ROOM AIR Sodium 128.4 L Potassium 5.2 H Chloride 94 L Carbon Dioxide 18 L Anion Gap 16 BUN 46 H Creatinine 6.22 H Est GFR ( Amer) 11 L Est GFR (Non-Af Amer) 9 L Glucose 141 H Lactic Acid Calcium 7.8 L Magnesium 2.5 H Total Bilirubin 2.4 H AST 32 ALT 21 Alkaline Phosphatase 134 H Ammonia Total Protein 6.2 L Albumin 2.6 L 03/23/17 03/23/17 03/23/17 04:00 04:00 04:29 WBC RBC Hgb Hct MCV MCH MCHC RDW Plt Count Seg Neutrophils % Lymphocytes % Monocytes % Eosinophils % Basophils % Absolute Neutrophils Absolute Lymphocytes Absolute Monocytes Absolute Eosinophils Absolute Basophils Carbonic Acid 1.03 L HCO3/H2CO3 Ratio 19:1 ABG pH 7.39 ABG pCO2 34.2 L ABG pO2 83.9 ABG HCO3 20.3 ABG O2 Saturation 96.3 ABG Base Excess -3.8 FiO2 2L Sodium Potassium Chloride Carbon Dioxide Anion Gap BUN Creatinine Est GFR ( Amer) Est GFR (Non-Af Amer) Glucose Lactic Acid 2.3 H Calcium Magnesium Total Bilirubin AST ALT Alkaline Phosphatase Ammonia 51.3 H Total Protein Albumin 03/23/17 12:41 WBC RBC Hgb Hct MCV MCH MCHC RDW Plt Count Seg Neutrophils % Lymphocytes % Monocytes % Eosinophils % Basophils % Absolute Neutrophils Absolute Lymphocytes Absolute Monocytes Absolute Eosinophils Absolute Basophils Carbonic Acid HCO3/H2CO3 Ratio ABG pH ABG pCO2 ABG pO2 ABG HCO3 ABG O2 Saturation ABG Base Excess FiO2 Sodium 124.7 L Potassium 5.2 H Chloride 94 L Carbon Dioxide 17 L Anion Gap 14 BUN 49 H Creatinine 6.68 H Est GFR ( Amer) 11 L Est GFR (Non-Af Amer) 9 L Glucose 119 H Lactic Acid Calcium 7.5 L Magnesium Total Bilirubin AST ALT Alkaline Phosphatase Ammonia Total Protein Albumin Impressions: KUB X-Ray 03/21/17 00:00 IMPRESSION: Nasogastric tube tip in subtle project over the region of the stomach. Multiple dilated loops of small bowel noted in the abdomen consistent with small bowel obstruction. Abdomen/Pelvis CT 03/21/17 16:49 IMPRESSION: 1. Multiple dilated loops of proximal small bowel are noted throughout the abdomen. At the ventral hernia side there is a loop of bowel which herniates into the defect. Beyond that the loop in the small bowel is decompressed. This suggest that there is a small bowel obstruction at the site of the ventral hernia. No intra-abdominal free air is identified. There is a significant amount of intra- abdominal flow but this appears to be chronic in nature. No new bowel pneumatosis noted. 2. Uncomplicated colonic diverticulosis. 3. Small left-sided pleural effusion with associated atelectasis. Chest X-Ray 03/23/17 06:00 IMPRESSION: 1. Moderate to large right subdiaphragmatic luceny may indicate FREE AIR due to bowel rupture and/or postsurgical changes. 2. Worsened left lower lung opacity. NG tube. Assessment & Plan - Diagnosis (1) Incarcerated umbilical hernia Is this a current diagnosis for this admission?: YesPlan: Status post repair with mesh. In the setting of renal failure patient hemodialysis dependent as well as stage hepatocellular cirrhosis with ascites. Looks reasonable post op. Pending transferred to tertiary care center. Hold off diet while patient is on pressors.
--- NOTE | 2017-03-23 17:41 | PDOC PROGRESS REPORT ---
Subjective Progress Note for:: 03/23/17 Subjective:: awake,alert, Feels better shortness but no pain Physical Exam Vital Signs: Temp Pulse Resp BP Pulse Ox 97.8 F 108 H 17 102/36 L 94 03/23/17 16:00 03/23/17 16:00 03/23/17 16:00 03/23/17 16:00 03/23/17 16:00 Intake & Output 03/22/17 03/23/17 03/24/17 06:59 06:59 06:59 Intake Total 1123 Output Total 25 0 Balance 1098 0 Weight 63.4 kg General appearance: PRESENT: no acute distress, cooperative, disheveled Head exam: PRESENT: atraumatic, normocephalic Eye exam: PRESENT: conjunctiva pale, EOMI Mouth exam: PRESENT: dry mucosa, neck supple, tongue midline Neck exam: ABSENT: carotid bruit, JVD, lymphadenopathy, thyromegaly Respiratory exam: PRESENT: decreased breath sounds, prolonged expiratory phas, rhonchi, symmetrical, unlabored Cardiovascular exam: PRESENT: RRR, +S1, +S2 Pulses: PRESENT: normal radial pulses GI/Abdominal exam: PRESENT: other - Postop Rectal exam: PRESENT: deferred Gentrourinary exam: PRESENT: urethral discharge Musculoskeletal exam: PRESENT: normal inspection Neurological exam: PRESENT: alert, awake Psychiatric exam: PRESENT: normal mood Skin exam: PRESENT: dry, warm Results Laboratory Results: 03/23/17 04:00 03/23/17 12:41 03/22/17 03/22/17 03/22/17 17:29 17:29 17:29 WBC 9.5 RBC 3.47 L Hgb 11.1 L Hct 32.4 L MCV 93 MCH 31.9 MCHC 34.1 RDW 13.8 Plt Count 176 Seg Neutrophils % 84.2 H Lymphocytes % 5.8 L Monocytes % 7.8 Eosinophils % 1.4 Basophils % 0.8 Absolute Neutrophils 8.0 Absolute Lymphocytes 0.6 Absolute Monocytes 0.7 Absolute Eosinophils 0.1 Absolute Basophils 0.1 Carbonic Acid HCO3/H2CO3 Ratio ABG pH ABG pCO2 ABG pO2 ABG HCO3 ABG O2 Saturation ABG Base Excess FiO2 Sodium 133.3 L Potassium 4.3 Chloride 98 Carbon Dioxide 19 L Anion Gap 16 BUN 39 H Creatinine 5.34 H Est GFR ( Amer) 14 L Est GFR (Non-Af Amer) 11 L Glucose 83 Lactic Acid 3.1 H Calcium 7.7 L Magnesium Total Bilirubin AST ALT Alkaline Phosphatase Ammonia Total Protein Albumin 03/22/17 03/23/17 03/23/17 18:28 04:00 04:00 WBC 13.0 H RBC 3.36 L Hgb 10.5 L Hct 31.1 L MCV 93 MCH 31.3 MCHC 33.8 RDW 13.8 Plt Count 259 Seg Neutrophils % Lymphocytes % Monocytes % Eosinophils % Basophils % Absolute Neutrophils Absolute Lymphocytes Absolute Monocytes Absolute Eosinophils Absolute Basophils Carbonic Acid 0.64 L HCO3/H2CO3 Ratio 19:1 ABG pH 7.38 ABG pCO2 21.4 L ABG pO2 84.9 ABG HCO3 12.5 L ABG O2 Saturation 96.6 ABG Base Excess -11.4 FiO2 ROOM AIR Sodium 128.4 L Potassium 5.2 H Chloride 94 L Carbon Dioxide 18 L Anion Gap 16 BUN 46 H Creatinine 6.22 H Est GFR ( Amer) 11 L Est GFR (Non-Af Amer) 9 L Glucose 141 H Lactic Acid Calcium 7.8 L Magnesium 2.5 H Total Bilirubin 2.4 H AST 32 ALT 21 Alkaline Phosphatase 134 H Ammonia Total Protein 6.2 L Albumin 2.6 L 03/23/17 03/23/17 03/23/17 04:00 04:00 04:29 WBC RBC Hgb Hct MCV MCH MCHC RDW Plt Count Seg Neutrophils % Lymphocytes % Monocytes % Eosinophils % Basophils % Absolute Neutrophils Absolute Lymphocytes Absolute Monocytes Absolute Eosinophils Absolute Basophils Carbonic Acid 1.03 L HCO3/H2CO3 Ratio 19:1 ABG pH 7.39 ABG pCO2 34.2 L ABG pO2 83.9 ABG HCO3 20.3 ABG O2 Saturation 96.3 ABG Base Excess -3.8 FiO2 2L Sodium Potassium Chloride Carbon Dioxide Anion Gap BUN Creatinine Est GFR ( Amer) Est GFR (Non-Af Amer) Glucose Lactic Acid 2.3 H Calcium Magnesium Total Bilirubin AST ALT Alkaline Phosphatase Ammonia 51.3 H Total Protein Albumin 03/23/17 12:41 WBC RBC Hgb Hct MCV MCH MCHC RDW Plt Count Seg Neutrophils % Lymphocytes % Monocytes % Eosinophils % Basophils % Absolute Neutrophils Absolute Lymphocytes Absolute Monocytes Absolute Eosinophils Absolute Basophils Carbonic Acid HCO3/H2CO3 Ratio ABG pH ABG pCO2 ABG pO2 ABG HCO3 ABG O2 Saturation ABG Base Excess FiO2 Sodium 124.7 L Potassium 5.2 H Chloride 94 L Carbon Dioxide 17 L Anion Gap 14 BUN 49 H Creatinine 6.68 H Est GFR ( Amer) 11 L Est GFR (Non-Af Amer) 9 L Glucose 119 H Lactic Acid Calcium 7.5 L Magnesium Total Bilirubin AST ALT Alkaline Phosphatase Ammonia Total Protein Albumin Impressions: KUB X-Ray 03/21/17 00:00 IMPRESSION: Nasogastric tube tip in subtle project over the region of the stomach. Multiple dilated loops of small bowel noted in the abdomen consistent with small bowel obstruction. Abdomen/Pelvis CT 03/21/17 16:49 IMPRESSION: 1. Multiple dilated loops of proximal small bowel are noted throughout the abdomen. At the ventral hernia side there is a loop of bowel which herniates into the defect. Beyond that the loop in the small bowel is decompressed. This suggest that there is a small bowel obstruction at the site of the ventral hernia. No intra-abdominal free air is identified. There is a significant amount of intra- abdominal flow but this appears to be chronic in nature. No new bowel pneumatosis noted. 2. Uncomplicated colonic diverticulosis. 3. Small left-sided pleural effusion with associated atelectasis. Chest X-Ray 03/23/17 06:00 IMPRESSION: 1. Moderate to large right subdiaphragmatic luceny may indicate FREE AIR due to bowel rupture and/or postsurgical changes. 2. Worsened left lower lung opacity. NG tube. Assessment & Plan - Diagnosis (1) End stage renal disease on dialysis Is this a current diagnosis for this admission?: Yes (2) Hepatic failure due to alcoholism Is this a current diagnosis for this admission?: YesPlan: schedule to go to [facility] (3) Small bowel obstruction Is this a current diagnosis for this admission?: Yes (4) Incarcerated umbilical hernia Is this a current diagnosis for this admission?: Yes (5) Left pulmonary infiltrate on CXR Is this a current diagnosis for this admission?: YesPlan: Afebrile, leukocytosis unable to determine left shift requiring vasopressors for support will check lactic acids oxygenating and ventilating well - Time Critical Time spent with patient: 25-34 minutes
[2017-03-23 18:51] VITALS: BP 118/22
--- NOTE | 2017-03-24 07:48 | CONSULTATION REPORT E ---
Consultation Report NAME: ANITA HASTINGS : 1965 AGE: 51Y DATE: 03/22/2017 608 A TO: LUIS AN M.D. FROM: JOSE SEGURA D.O. Requesting Physician REASON FOR CONSULTATION: Patient with significant aortic stenosis and aortic regurgitation, cirrhosis of liver and end-stage renal disease on hemodialysis for emergent abdominal surgery for small bowel obstruction with the bowel being incarcerated in the ventral hernia for preoperative cardiac risk assessment. HISTORY: The patient is a 51-year-old male with known history of cirrhosis of the liver secondary to alcoholic cirrhosis who is on the transplant list in [place] and history of end-stage renal disease on hemodialysis 3 times a week due to the patient's cirrhosis causing him to go into end-stage renal disease and history of aortic stenosis and aortic regurgitation. The patient was admitted with abdominal pain and found to have a small bowel obstruction with nausea and vomiting of clear small quantities of fluid. He states he also had a bowel movement, but workup shows that the patient has a small bowel obstruction with bowel loop in the ventral hernia and needs emergent surgery. Since the patient was told by the surgeon in [place] where he has had recurrent ventral hernia evaluated by surgeons in [place] and the surgeon told him that "never let anyone else operate on this except for people here in [place]." Subsequently, the patient has been putting up with the hernia for some time. Apparently, the emergency room physician did reduce the hernia initially; however, it recurred causing him increasing pain. There were communications between [place] and [place] and [place] ER physician in an attempt to have the patient transferred to a larger facility, but due to surgery the patient's facility did not accept the patient and the patient remained in the emergency room. After much deliberation and discussions with the anesthesiologist, the patient accepted to have surgery here. As per some of his notes from [place], he was seen by a truss designer there who thought that aortic stenosis was overestimated in terms of the aortic flow checked due to the patient's end-stage renal disease causing high output and the patient's cirrhosis of the liver and also the presence of aortic regurgitation and he thought this would not be an additional risk for the patient for the patient to have abdominal surgery. The patient denies any chest pain or discomfort. There are no palpitations. There is no PND or orthopnea. The patient does have ascites due to his cirrhosis. There is no leg edema. There are no palpitations or syncope. PAST MEDICAL HISTORY: Positive for: 1. History of aortic stenosis and aortic regurgitation. 2. He denies any history of hypertension. 3. There is no history of diabetes mellitus. 4. He has a past history of alcoholism which caused him to go into cirrhosis of the liver and this caused him to have end-stage renal disease and the patient is on hemodialysis. 5. There is no TIA or CVA. 6. There is no history of anxiety or depression. 7. There is no history of diabetes mellitus or thyroid disease. 8. There is no history of asthma, COPD, or sleep apnea. PAST SURGICAL HISTORY: Positive for: 1. Umbilical herniorrhaphy. 2. Right inguinal hernia surgery. 3. Vascular surgery with placement of fistula in the left arm. SOCIAL HISTORY: The patient has never smoked. There is a past history of EtOH abuse. He has not had any alcohol since April 2015. The patient is on transplant list. FAMILY HISTORY: Positive for coronary artery disease. His father at early age from a heart attack. There is also diabetes mellitus and mother had uterine cancer. ALLERGIES: PENICILLIN. CURRENT MEDICATIONS: 1. Cefoxitin 2 mg IV piggyback x1. 2. Hypoglycemic precautions with dextrose 15 g p.o. p.r.n. and 30 g p.o. p.r.n. in the form of glucose 40% gel p.r.n. hypoglycemia. 3. Dextrose 50%, 25 g and 12.5 g IV p.r.n. hypoglycemia. 4. Pepcid 20 mg IV every 12 hours. 5. Glucagon 1 mg IM p.r.n. hypoglycemia. 6. He did receive fentanyl citrate 100 mcg p.r.n. 7. Heparin 5000 units subcutaneously every 8 hours. 8. Ciprofloxacin 200 mg IV every 12 hours. 9. Normal saline 1000 mL bolus and then 200 mL per hour. 10. Lactulose 20 g per rectally x1 and 20 g p.o. x1 and lactulose 20 g per rectally q.i.d. 11. Pantoprazole 40 mg IV every 12 hours. 12. He did receive vitamin K 10 mg IV x1. DISPOSITION: The patient is a FULL CODE. His sister is surrogate healthcare decision maker. TIME SPENT: The patient was seen at 12 o'clock and 40 minutes spent on this patient. PHYSICAL EXAMINATION: VITAL SIGNS: The patient is afebrile. His pulse is 85 beats per minute. Blood pressure is 96/39, respirations are 19 per minute. O2 saturation is 100% on room air. HEENT: Head is atraumatic and normocephalic. Eyes; pupils are equal, round, regular, reactive to light and accommodation. Extraocular movements are normal. There is no conjunctival pallor. There is no scleral icterus. Ears; tympanic membranes are intact. External auditory canals are clear. Nose; there is no deviated nasal septum. There is no inflammation of the nasal mucous membranes. Mouth; mucous membranes of the mouth are moist. Tongue is moist. There are no ulcers. There is no bleeding from the gums. Throat; there is no redness of the oropharynx. There are no exudates in the throat. SKIN: There is no petechia or ecchymosis. There are no skin lesions or skin rashes. There is no skin cancer. There is no psoriasis. There is no yellowish discoloration of the skin. NECK: Supple. There is no JVD. Carotids are equal. There is no bruit. There is no goiter. There is no lymphadenopathy. Trachea is central. LUNGS: Clear to auscultation and percussion. HEART: S1 and S2 are heard. There is no S3 gallop. There is no S4 gallop. There is a systolic murmur of aortic stenosis with diminished A2. There is carotid delay present. There is radiation of the aortic stenosis murmur to the carotids. There is aortic regurgitation murmur w which is grade 2/6 diastolic murmur. There is collapsing pulse. There is no carotid dance, but there is distal short femorals. There is no Durozeiz sign. There is no Iwrtja-Lj-Fedjuc sign. ABDOMEN: Soft, distended. There is ascites. There some tenderness in the midabdomen below the umbilicus at the site of the bowel obstruction. Bowel sounds are slightly increased. The rest of the abdomen is soft without any guarding, rebound, or rigidity. EXTREMITIES: Femorals are well felt. Leg pulses are well felt. There is no pedal edema. There is no DVT or cellulitis. There is no cyanosis or clubbing. CENTRAL NERVOUS SYSTEM: The patient is conscious, awake, alert, oriented x3 with no focal deficits. PSYCHIATRIC: The patient's judgment and insight are intact. His affect is normal. REVIEW OF SYMPTOMS: CONSTITUTIONAL: Denies any fever, chills, or rigors. Complains of generalized weakness and fatigue. HEAD: Denies headaches or headaches or migraines. EYES: No history of amblyopia or diplopia. No history of amaurosis fugax. EARS: No history of hearing loss. No history of tinnitus. No history of recurrent ear infections. NOSE: No history of hay fever. No history of nosebleeds. No history of nasal polyps. MOUTH: No history of altered taste sensation. No history of ulcers in the mouth. No bleeding from the gums. THROAT: No redness of the oropharynx. There are no exudates in the throat. SKIN: No skin rashes. No pruritus. There is no yellowish discoloration of the skin. There is no history of psoriasis or skin cancer. NECK: No history of C-spine arthritis. No history of goiter. No history of painful or painless swelling in the neck. LUNGS: No history of cough or sputum production. No history of wheezing. No history of pulmonary embolism. No history of hemoptysis. No history of pleuritic chest pain. No history of sleep apnea. CARDIAC: Denies history of hypertension, in fact, episodically he has hypotension and uses midodrine p.r.n. There is no history of congestive heart failure. No history of palpitations or syncope. No history of PND, orthopnea or leg edema. He has aortic stenosis which probably the aortic valve gradient is overestimated due to the presence of aortic regurgitation and the presence of end-stage renal disease causing high output. He also has aortic regurgitation. There is no syncope. There are no palpitations. GASTROINTESTINAL: History of cirrhosis of the liver. The patient now with abdominal pain, with nausea and vomiting. Patient diagnosed with having small bowel obstruction with incarceration of the small bowel in the ventral hernia and requiring emergent surgery as per surgeon. History of ventral hernia which has been recurrent. No history of jaundice. History of cirrhosis of the liver due to alcoholism. The patient is on liver transplant list. No history of GI bleed. No history of hematemesis. MUSCULOSKELETAL: Denies arthritis or collagen vascular disease. RENAL: History of end-stage renal disease on hemodialysis. ENDOCRINE: No history of diabetes mellitus. No history of thyroid disease. No history of polydipsia or polyuria. No history of heat or cold intolerance. CENTRAL NERVOUS SYSTEM: No history of TIA or CVA. No history of seizures, headaches or migraines. No history of sleep apnea. PSYCHIATRIC: No history of anxiety or depression. No history of suicidal or homicidal ideation. VASCULAR: No history of calf or buttock claudication. No history of DVT. HEMATOLOGIC: No history of bleeding diathesis. No history of clotting disorders. ECHOCARDIOGRAM: The left ventricle is normal size. There is no LVH. Left ventricular ejection fraction is 60%. The systolic function is normal. Doppler measurements suggest normal left ventricular diastolic function. Left ventricular wall motion is normal. There is no thrombus. The right ventricle is grossly normal size. The left atrium is borderline dilated. The intraatrial septum is intact with no evidence of atrial septal defect. There is no evidence of mitral valve prolapse. There are no vegetations seen on mitral valve. There is mild amount of mitral regurgitation. There is severe aortic stenosis and a peak gradient of 88 mmHg. By calculation, the aortic valve area is 1.4 but probably the patient has severe aortic stenosis which is not typical. He has moderate aortic regurgitation. There are some probable signs of aortic regurgitation. There is trace amount of tricuspid regurgitation. There is mild to moderate pulmonary hypertension by echo. Right ventricular systolic pressure is 46 mmHg with RA mean of 5 to 10. There is no pericardial effusion. ELECTROCARDIOGRAM: The patient's EKG done yesterday shows sinus rhythm, borderline left axis deviation, borderline T abnormalities diffuse leads. IMAGING: The patient's KUB x-ray shows nasogastric tube in the over the region of the stomach, multiple dilated loops of small bowel noted in the abdomen consistent with small bowel obstruction. The patient's abdomen CT pelvis shows multiple dilated loops of proximal small bowel are noted throughout the abdomen. At the ventral hernia site, there is a loop of bowel which herniates into the defect. Beyond that loop, the small bowel is decompressed. This suggests that there is a small bowel obstruction at the site of the ventral hernia. No intraabdominal free air . There is a significant amount of intraabdominal flow, but this is appears to be chronic in nature. No new bowel pneumatosis noted, uncomplicated chronic diverticulosis, small left-sided pleural effusion with associated atelectasis. LABORATORY: White count 9500, hemoglobin 11.1, hematocrit 32.4, platelet count 176,000. Sodium 131, potassium 4.4, chloride 93, CO2 of 22, BUN 40, creatinine 5.34, GFR reduced at 11 which is end-stage renal disease, the patient is on hemodialysis. The patient's lactic acid is 2.7 which is slightly high. Calcium 8.2. Liver function tests show total bilirubin elevated at 2.0, direct bilirubin is 1.2, AST is normal 53, ALT is elevated at 226, total protein 7.1, albumin 3.2. ABG showed pH 7.38, pCO2 of 21.4, pO2 of 84.9, and on room air the O2 saturation is 96.6%. IMPRESSION: 1. Small bowel obstruction within ventral hernia requiring emergent surgical intervention. 2. Ventral hernia. 3. Aortic stenosis most likely severe. 4. Moderate aortic regurgitation with normal left ventricular systolic function. 5. Cirrhosis of the liver. 6. End-stage renal disease on hemodialysis. 7. Mild to moderate pulmonary hypertension. 8. Patient on liver transplant list. 9. Preoperative cardiac risk assessment. Note, I have reviewed the data from [place] including the recommendations given by the shook machine operator there, so the pt would be at moderate cardiac risk for this procedure, but with the patient's cirrhosis and the renal failure, he would be at increased risk than moderate. Postoperatively, need to monitor the patient's fluid status and need to monitor the blood pressure and would recommend antibiotics. Note, 40 minutes spent on this patient. The patient initially seen at 1200 hours. Note, more than 50% of the time spent on direct patient care. Note that this is a case that requires highly complex medical decision making. Will follow with you. Discussed with the surgeon, anesthesiologist and attending physician on the case. Will follow with you. DICTATING PHYSICIAN: LUIS AN M.D. [id number] PATRICIAY#: [id number] ID: [id number] JOB#: [id number] ACCT: [id number] cc:LUIS AN M.D. >
== END 2017-03-23 18:47 | disposition short-term general hospital (02) | DRG 353 ==
LOC: ER 15:29 → EH 03-22 13:16 → UNDOADMIN 03-22 13:16 → EH 03-22 16:59 → ICU 03-22 17:48
PROVIDERS: ADMIT Surgery; ATTEND Surgery
PROC: 0WUF0JZ Supplement Abdominal Wall with Synthetic Substitute, Open Approach (ICD-10-PCS; principal; 2017-03-22 13:30)
DX: K43.6 Other and unspecified ventral hernia with obstruction, without gangrene (principal); N18.6 End stage renal disease; I12.0 Hypertensive chronic kidney disease with stage 5 chronic kidney disease or end stage renal disease; R18.8 Other ascites; K42.0 Umbilical hernia with obstruction, without gangrene; Z99.2 Dependence on renal dialysis; K70.40 Alcoholic hepatic failure without coma; I35.0 Nonrheumatic aortic (valve) stenosis; I95.9 Hypotension, unspecified; Z79.899 Other long term (current) drug therapy; Z88.8 Allergy status to other drugs, medicaments and biological substances; Z88.0 Allergy status to penicillin
CPT/HCPCS: 36415; 71010; 74000; 74176; 790; 80048; 80053; 80076; 82140; 82803; 82962; 83605; 83735; 85025; 85027; 85610; 85730; 86850; 86900; 86901; 87040; 88302; 93005; 93010; 93306; 94799; 96361; 96374; 96375; 96376; 99291; 99292; C1781; J0330; J0744; J1170; J1644; J2250; J2270; J2370; J2704; J3010; J3430; J3490; J7030; J7050; J7060; S0028; S0164

== ENCOUNTER 2017-03-31 06:07 | Day surgery (SDC) | payer MEDICAID ==
--- NOTE | 2017-03-30 13:36 | RADIOLOGY REPORT (SQ) ---
EXAM DESCRIPTION: U/S ABDOMEN LIMITED W/O DOP COMPLETED DATE/TIME: 03/30/2017 10:38 am REASON FOR STUDY: EVAL FOR ASCITES COMPARISON: Multiple previous abdominal ultrasound exams CT abdomen pelvis 03/21/2017 TECHNIQUE: 4 quadrant abdominal ultrasound performed to assess total amount of ascites. LIMITATIONS: None. FINDINGS: Moderate to large amount of ascites in the abdomen and pelvis. Paracentesis was deferred today, patient is immediately post dialysis with low blood pressure. Paracentesis is scheduled for t omorrow IMPRESSION: Moderate to large amount of ascites in the abdomen and pelvis Patient is scheduled for paracentesis tomorrow TECHNICAL DOCUMENTATION: JOB ID: [id number] [employer]- All Rights Reserved
[2017-03-31 06:38] LABS: HEMOGLOBIN 9.7 g/dL (13.5-17.0); HGB HCT DIFFERENCE 0.1; MEAN CORPUSCULAR HEMOGLOBIN 31.1 pg (27.0-33.4); MEAN CORPUSCULAR HGB CONC 33.3 g/dL (32.0-36.0); MEAN CORPUSCULAR VOLUME 93 fl (80-97); RED BLOOD COUNT 3.12 10^6/uL (4.35-5.55); RED CELL DISTRIBUTION WIDTH 15.6 % (11.5-14.0); WHITE BLOOD COUNT 8.5 10^3/uL (4.0-10.5)
[2017-03-31 06:43] LABS: PROTHROMBIN TIME 15.1 SEC (11.4-15.4)
[2017-03-31 06:44] LABS: PARTIAL THROMBOPLASTIN TIME 36.9 SEC (23.5-35.8)
[2017-03-31 06:51] LABS: BLOOD UREA NITROGEN 22 mg/dL (7-20); CREATININE RESULT 5.17 mg/dL (0.52-1.25)
[2017-03-31] MEDS ORDERED: ALBUMIN HUMAN 150 ML IV PRN (10:30)
--- NOTE | 2017-03-31 10:36 | RADIOLOGY REPORT (SQ) ---
EXAM DESCRIPTION: U/S ABD PARACENTESIS COMPLETED DATE/TIME: 03/31/2017 10:10 am REASON FOR STUDY: ASCITES COMPARISON Multiple previous paracentesis Abdominal ultrasound 03/30/2017 LIMITATIONS: None. PROCEDURE: After obtaining informed consent, the patient was brought to the ultrasound suite. The p rocedure was performed with the patient on a gurney. Ultrasound was used to identify a prominent poc ket of ascites in the right lower quadrant. An appropriate access site was selected. The patient wa s prepped and draped in usual sterile fashion. The access site was anesthetized with 5.5 mL 1% lido silvia. A Unwq-F-[id number] needle was advanced into the fluid. After aspiration of fluid the needle, the catheter was advanced off the needle into the fluid. A total of 6,800 mL of cloudy yellow fluid was removed. The patient tolerated the procedure well left the department in satisfactory condition. Therapeutic only. No laboratory studies were ordered on the fluid. IMPRESSION: Successful ultrasound-guided paracentesis COMMENT: Patient medication list reviewed: Yes- Quality ID# [id number]:Eligible professional attests to doc umenting in the medical record they obtained, updated, or reviewed the patient's current medications. Quality ID #[id number]: The patient was prepped and draped using maximum sterile barrier technique including cap, mask, sterile gown, sterile gloves, a large sterile sheet, hand hygiene, and 2% Chlorhexidine fo r cutaneous antisepsis. When ultrasound is used, sterile ultrasound techniques are followed requiring sterile gel and sterile probes. Quality ID #[id number]: Final reports for procedures using fluoroscopy that document radiation exposure jeanie dylan, or exposure time and number of fluorographic images (if radiation exposure indices are not avail able) TECHNICAL DOCUMENTATION: JOB ID: [id number] [employer]: turn off the lights- All Rights Reserved
[2017-03-31 11:32] VITALS: BP 95/52
== END 2017-03-31 11:32 | disposition home or self-care (01) ==
LOC: RAD 06:07
PROVIDERS: ATTEND Family Medicine
PROC: 0W9G3ZZ Drainage of Peritoneal Cavity, Percutaneous Approach (ICD-10-PCS; principal; 2017-03-31)
DX: K70.30 Alcoholic cirrhosis of liver without ascites (principal); N18.6 End stage renal disease; Z99.2 Dependence on renal dialysis; I35.0 Nonrheumatic aortic (valve) stenosis; I35.1 Nonrheumatic aortic (valve) insufficiency; Z79.899 Other long term (current) drug therapy; Z88.0 Allergy status to penicillin
CPT/HCPCS: 36415; 84520; 82565; 85027; 85610; 85730; 76705; 49083; P9047

== ENCOUNTER 2017-04-12 05:58 | Day surgery (SDC) | payer MEDICAID ==
[2017-04-12 06:50] LABS: PROTHROMBIN TIME 16.2 SEC (11.4-15.4)
[2017-04-12 06:51] LABS: HEMOGLOBIN 8.9 g/dL (13.5-17.0); HGB HCT DIFFERENCE -0.3; MEAN CORPUSCULAR HEMOGLOBIN 30.7 pg (27.0-33.4); MEAN CORPUSCULAR HGB CONC 32.8 g/dL (32.0-36.0); MEAN CORPUSCULAR VOLUME 94 fl (80-97); PARTIAL THROMBOPLASTIN TIME 36.6 SEC (23.5-35.8); RED BLOOD COUNT 2.88 10^6/uL (4.35-5.55); RED CELL DISTRIBUTION WIDTH 14.9 % (11.5-14.0); WHITE BLOOD COUNT 4.5 10^3/uL (4.0-10.5)
[2017-04-12 07:10] LABS: BLOOD UREA NITROGEN 23 mg/dL (7-20); CREATININE RESULT 4.42 mg/dL (0.52-1.25)
--- NOTE | 2017-04-12 11:38 | RADIOLOGY REPORT (SQ) ---
EXAM DESCRIPTION: U/S ABD PARACENTESIS COMPLETED DATE/TIME: 04/12/2017 11:07 am REASON FOR STUDY: ASCITES COMPARISON None. LIMITATIONS: None. PROCEDURE: After obtaining informed consent, the patient was brought to the ultrasound suite. The p rocedure was performed with the patient on a gurney. Ultrasound was used to identify a prominent poc ket of ascites left lower quadrant. An appropriate access site was selected. The patient was preppe d and draped in usual sterile fashion. The access site was anesthetized with 5 mL 1% lidocaine. A Exiu-R-Zlhgsxgu needle was advanced into the fluid. After aspiration of fluid the needle, the cathet er was advanced off the needle into the fluid. A total of cine 100 mL of Cloudy straw-colored fluid was removed. The patient tolerated the procedure well left the department in satisfactory condition. IMPRESSION: Successful ultrasound-guided paracentesis COMMENT: Patient medication list reviewed: Yes Quality ID #[id number]: The patient was prepped and draped using maximum sterile barrier technique including cap, mask, sterile gown, sterile gloves, a large sterile sheet, hand hygiene, and 2% Chlorhexidine fo r cutaneous antisepsis. When ultrasound is used, sterile ultrasound techniques are followed requiring sterile gel and sterile probes. Quality ID #[id number]: Final reports for procedures using fluoroscopy that document radiation exposure jeanie dylan, or exposure time and number of fluorographic images (if radiation exposure indices are not avail able) TECHNICAL DOCUMENTATION: JOB ID: [id number] [employer]- All Rights Reserved
[2017-04-12] MEDS ORDERED: ALBUMIN HUMAN 300 ML IV PRN (12:30)
[2017-04-12 14:04] VITALS: BP 88/39
== END 2017-04-12 14:00 | disposition home or self-care (01) ==
LOC: RAD 05:58
PROVIDERS: ATTEND Family Medicine
PROC: 0W9F3ZZ Drainage of Abdominal Wall, Percutaneous Approach (ICD-10-PCS; principal; 2017-04-12)
DX: K70.31 Alcoholic cirrhosis of liver with ascites (principal); Z88.0 Allergy status to penicillin; N18.6 End stage renal disease
CPT/HCPCS: 36415; 84520; 82565; 85027; 85610; 85730; 49083; P9047

== ENCOUNTER 2017-04-24 05:48 | Day surgery (SDC) | payer MEDICAID ==
[2017-04-24 06:23] LABS: HEMATOCRIT 27.7 % (37.9-51.0); HEMOGLOBIN 9.6 g/dL (13.5-17.0); HGB HCT DIFFERENCE 1.1; MEAN CORPUSCULAR HEMOGLOBIN 32.2 pg (27.0-33.4); MEAN CORPUSCULAR HGB CONC 34.8 g/dL (32.0-36.0); MEAN CORPUSCULAR VOLUME 93 fl (80-97); RED BLOOD COUNT 2.99 10^6/uL (4.35-5.55); RED CELL DISTRIBUTION WIDTH 15.3 % (11.5-14.0)
[2017-04-24 06:35] LABS: PROTHROMBIN TIME 15.6 SEC (11.4-15.4)
[2017-04-24 06:36] LABS: PARTIAL THROMBOPLASTIN TIME 38.1 SEC (23.5-35.8)
[2017-04-24 06:39] LABS: BLOOD UREA NITROGEN 36 mg/dL (7-20); CREATININE RESULT 6.83 mg/dL (0.52-1.25)
[2017-04-24] MEDS ORDERED: ALBUMIN HUMAN 300 ML IV PRN (12:03)
--- NOTE | 2017-04-24 12:47 | RADIOLOGY REPORT (SQ) ---
EXAM DESCRIPTION: U/S ABD PARACENTESIS COMPLETED DATE/TIME: 04/24/2017 11:21 am REASON FOR STUDY: ASCITES COMPARISON None. LIMITATIONS: None. PROCEDURE: After obtaining informed consent, the patient was brought to the ultrasound suite. The p rocedure was performed with the patient on a gurney. Ultrasound was used to identify a prominent poc ket of ascites in the left lower quadrant. An appropriate access site was selected. The patient was prepped and draped in usual sterile fashion. The access site was anesthetized with 5 mL 1% lidocai ne. A Isnx-X-Ggbvkzps needle was advanced into the fluid. After aspiration of fluid the needle, the catheter was advanced off the needle into the fluid. A total of 7,600 mL of cloudy straw-colored fl uid was removed. The patient tolerated the procedure well left the department in satisfactory conditi on. IMPRESSION: Successful ultrasound-guided paracentesis COMMENT: Patient medication list reviewed: Yes- Quality ID# [id number]:Eligible professional attests to doc umenting in the medical record they obtained, updated, or reviewed the patient's current medications. Quality ID #76: The patient was prepped and draped using maximum sterile barrier technique including cap, mask, sterile gown, sterile gloves, a large sterile sheet, hand hygiene, and 2% Chlorhexidine fo r cutaneous antisepsis. When ultrasound is used, sterile ultrasound techniques are followed requiring sterile gel and sterile probes. Quality ID #145: Final reports for procedures using fluoroscopy that document radiation exposure jeanie dylan, or exposure time and number of fluorographic images (if radiation exposure indices are not avail able) TECHNICAL DOCUMENTATION: JOB ID: [id number] [employer]- All Rights Reserved
[2017-04-24 13:40] VITALS: BP 97/46
== END 2017-04-24 14:00 | disposition home or self-care (01) ==
LOC: RAD 05:48
PROVIDERS: ATTEND Family Medicine
PROC: 0W9F3ZZ Drainage of Abdominal Wall, Percutaneous Approach (ICD-10-PCS; principal; 2017-04-24)
DX: K70.31 Alcoholic cirrhosis of liver with ascites (principal); N18.6 End stage renal disease; Z88.0 Allergy status to penicillin; Z99.2 Dependence on renal dialysis
CPT/HCPCS: 36415; 84520; 82565; 85027; 85610; 85730; 49083; P9047

== ENCOUNTER 2017-05-05 05:55 | Day surgery (SDC) | payer MEDICAID ==
[2017-05-05 06:24] LABS: HEMATOCRIT 26.8 % (37.9-51.0); HEMOGLOBIN 9.3 g/dL (13.5-17.0); HGB HCT DIFFERENCE 1.1; MEAN CORPUSCULAR HGB CONC 34.6 g/dL (32.0-36.0); MEAN CORPUSCULAR VOLUME 90 fl (80-97); RED BLOOD COUNT 2.98 10^6/uL (4.35-5.55); RED CELL DISTRIBUTION WIDTH 15.2 % (11.5-14.0); WHITE BLOOD COUNT 5.9 10^3/uL (4.0-10.5)
[2017-05-05 06:35] LABS: PROTHROMBIN TIME 14.3 SEC (11.4-15.4)
[2017-05-05 06:36] LABS: PARTIAL THROMBOPLASTIN TIME 37.8 SEC (23.5-35.8)
[2017-05-05 06:39] LABS: BLOOD UREA NITROGEN 33 mg/dL (7-20); CREATININE RESULT 4.67 mg/dL (0.52-1.25)
--- NOTE | 2017-05-05 11:15 | RADIOLOGY REPORT (SQ) ---
EXAM DESCRIPTION: U/S ABD PARACENTESIS COMPLETED DATE/TIME: 05/05/2017 10:40 am REASON FOR STUDY: ASCITES COMPARISON Multiple previous LIMITATIONS: None. PROCEDURE: After obtaining informed consent, the patient was brought to the ultrasound suite. The p rocedure was performed with the patient on a gurney. Ultrasound was used to identify a prominent poc ket of ascites left lower quadrant. An appropriate access site was selected. The patient was preppe d and draped in usual sterile fashion. The access site was anesthetized with 6 mL 1% lidocaine. A Ihxr-B-Brczzwrz needle was advanced into the fluid. After aspiration of fluid the needle, the cathet er was advanced off the needle into the fluid. A total of 7,000 mL of cloudy colorless fluid was rem mario. The patient tolerated the procedure well left the department in satisfactory condition. No rossi ting on the fluid today. IMPRESSION: Successful ultrasound-guided paracentesis COMMENT: Patient medication list reviewed: Yes- Quality ID# [id number]:Eligible professional attests to doc umenting in the medical record they obtained, updated, or reviewed the patient's current medications. Quality ID #76: The patient was prepped and draped using maximum sterile barrier technique including cap, mask, sterile gown, sterile gloves, a large sterile sheet, hand hygiene, and 2% Chlorhexidine fo r cutaneous antisepsis. When ultrasound is used, sterile ultrasound techniques are followed requiring sterile gel and sterile probes. Quality ID #[id number]: Final reports for procedures using fluoroscopy that document radiation exposure jeanie dylan, or exposure time and number of fluorographic images (if radiation exposure indices are not avail able) TECHNICAL DOCUMENTATION: JOB ID: [id number] [email or web address]- All Rights Reserved
[2017-05-05] MEDS ORDERED: ALBUMIN HUMAN 250 ML IV ONE (11:30)
[2017-05-05 12:52] VITALS: BP 98/41
== END 2017-05-05 12:52 | disposition home or self-care (01) ==
LOC: RAD 05:55
PROVIDERS: ATTEND Nuclear Medicine
PROC: 0W9F3ZZ Drainage of Abdominal Wall, Percutaneous Approach (ICD-10-PCS; principal; 2017-05-05)
DX: K70.31 Alcoholic cirrhosis of liver with ascites (principal); Z88.0 Allergy status to penicillin; N18.6 End stage renal disease; Z99.2 Dependence on renal dialysis
CPT/HCPCS: 36415; 84520; 82565; 85027; 85610; 85730; 49083; P9047

== ENCOUNTER 2017-05-15 05:55 | Day surgery (SDC) | payer MEDICAID ==
[2017-05-15 06:47] LABS: HEMATOCRIT 26.2 % (37.9-51.0); HEMOGLOBIN 8.9 g/dL (13.5-17.0); HGB HCT DIFFERENCE 0.5; MEAN CORPUSCULAR HEMOGLOBIN 30.9 pg (27.0-33.4); MEAN CORPUSCULAR HGB CONC 33.9 g/dL (32.0-36.0); MEAN CORPUSCULAR VOLUME 91 fl (80-97); RED BLOOD COUNT 2.88 10^6/uL (4.35-5.55); RED CELL DISTRIBUTION WIDTH 15.2 % (11.5-14.0); WHITE BLOOD COUNT 5.6 10^3/uL (4.0-10.5)
[2017-05-15 06:53] LABS: PARTIAL THROMBOPLASTIN TIME 35.7 SEC (23.5-35.8); PROTHROMBIN TIME 14.5 SEC (11.4-15.4)
[2017-05-15 07:01] LABS: BLOOD UREA NITROGEN 39 mg/dL (7-20); CREATININE RESULT 6.07 mg/dL (0.52-1.25)
[2017-05-15] MEDS ORDERED: ALBUMIN HUMAN IV ONE (12:00)
[2017-05-15 13:03] VITALS: BP 97/42
--- NOTE | 2017-05-15 13:28 | RADIOLOGY REPORT (SQ) ---
EXAM DESCRIPTION: U/S ABD PARACENTESIS COMPLETED DATE/TIME: 05/15/2017 11:02 am REASON FOR STUDY: ASCITES COMPARISON None. LIMITATIONS: None. PROCEDURE: After obtaining informed consent, the patient was brought to the ultrasound suite. The p rocedure was performed with the patient on a gurney. Ultrasound was used to identify a prominent poc ket of ascites in the left lower quadrant. An appropriate access site was selected. The patient was prepped and draped in usual sterile fashion. The access site was anesthetized with 5.5 mL 1% lidoc domenica. A Tcok-N-Xahikyxr needle was advanced into the fluid. After aspiration of fluid the needle, t he catheter was advanced off the needle into the fluid. A total of 6,100 mL of cloudy straw-colored fluid was removed. The patient tolerated the procedure well left the department in satisfactory condi tion. No specimens were sent for testing. Patient received IV albumin after the procedure. IMPRESSION: Successful ultrasound-guided therapeutic paracentesis COMMENT: Patient medication list reviewed: Yes- Quality ID# [id number]:Eligible professional attests to doc umenting in the medical record they obtained, updated, or reviewed the patient's current medications. Quality ID #76: The patient was prepped and draped using maximum sterile barrier technique including cap, mask, sterile gown, sterile gloves, a large sterile sheet, hand hygiene, and 2% Chlorhexidine fo r cutaneous antisepsis. When ultrasound is used, sterile ultrasound techniques are followed requiring sterile gel and sterile probes. Quality ID #[id number]: Final reports for procedures using fluoroscopy that document radiation exposure jeanie dylan, or exposure time and number of fluorographic images (if radiation exposure indices are not avail able) TECHNICAL DOCUMENTATION: JOB ID: [id number] [employer]- All Rights Reserved
== END 2017-05-15 12:55 | disposition home or self-care (01) ==
LOC: RAD 05:55
PROVIDERS: ATTEND Nuclear Medicine
PROC: 0W9G3ZZ Drainage of Peritoneal Cavity, Percutaneous Approach (ICD-10-PCS; principal; 2017-05-15)
DX: K70.31 Alcoholic cirrhosis of liver with ascites (principal); N18.6 End stage renal disease; K74.60 Unspecified cirrhosis of liver; Z88.0 Allergy status to penicillin; Z99.2 Dependence on renal dialysis
CPT/HCPCS: 36415; 84520; 82565; 85027; 85610; 85730; 49083; P9047

== ENCOUNTER 2017-05-20 05:12 | Emergency (ER) | payer MEDICAID ==
--- NOTE | 2017-05-20 05:42 | ER Document Report ---
ED Medical Screen (RME) - General Chief Complaint: Altered Mental Status Stated Complaint: OTHER Time Seen by Provider: 05/20/17 05:33 Notes: Patient is a 52-year-old male that comes by EMS for chief complaint of altered mental status. Patient has a history of both liver failure and end-stage renal disease. His family reports that he started intermittently making bizarre statements. Patient is intermittently oriented to self and location, he tells me appropriately who he is and where he is, he denies any pain. No fevers reported. Family thinks his ammonia may be high, I am unable to tell if he has missed doses of lactulose. He is due for dialysis today. TRAVEL OUTSIDE OF THE [place].S. IN LAST 30 DAYS: No - Related Data Allergies/Adverse Reactions: povidone-iodine [From Betadine] Allergy (Verified 03/21/17 15:38) soap [From Betadine] Allergy (Verified 03/21/17 15:38) Penicillins Adverse Reaction (Verified 03/21/17 15:38) "some kind of dialysis filter" Allergy (Uncoded 03/21/17 15:38) Past Medical History - Past Medical History Cardiac Medical History: Reports: Hx Heart Murmur Denies: Hx Coronary Artery Disease, Hx Heart Attack, Hx Hypertension Pulmonary Medical History: Reports: Hx Asthma - as a child, Hx Pneumonia - 2015 Denies: Hx Bronchitis, Hx COPD Neurological Medical History: Denies: Hx Cerebrovascular Accident, Hx Seizures Renal/ Medical History: Reports: Hx End Stage Renal Disease, Hx Hemodialysis. Denies: Hx Peritoneal Dialysis GI Medical History: Reports: Hx Cirrhosis, Hx Liver Failure Musculoskeltal Medical History: Reports Hx Arthritis Past Surgical History: Reports: Hx Herniorrhaphy - Umbilical herniorrhaphy, right inguinal herniorrhaphy, Hx Vascular Surgery - left fistula - Immunizations Hx Diphtheria, Pertussis, Tetanus Vaccination: Yes Physical Exam - General General appearance: Appears well In distress: None - Respiratory Respiratory status: No respiratory distress Breath sounds: Normal. No: Decreased air movement, Wheezing - Abdominal Tenderness: Nontender. No: Tender, Guarding Course - Re-evaluation Re-evalutation: Initially patient oriented to person and place and normally conversational, however at the end of the interview he began making bizarre statements such as "since it is October I need my teeth taken out so I can have a transplant".
--- NOTE | 2017-05-20 06:26 | RADIOLOGY REPORT (SQ) ---
EXAM DESCRIPTION: CT HEAD WITHOUT COMPLETED DATE/TIME: 05/20/2017 6:14 am REASON FOR STUDY: altered mental status COMPARISON: 05/10/2016. TECHNIQUE: Axial images acquired through the brain without intravenous contrast. Images reviewed wi th bone, brain and subdural windows. Images stored on PACS. All CT scanners at this facility use dose modulation, iterative reconstruction, and/or weight based d osing when appropriate to reduce radiation dose to as low as reasonably achievable (ALARA). [facility]: Dose Right [facility]: CareDose [facility]: Dose Right [facility]: Teradose 4D [facility]: Smart Gift Card Impressions RADIATION DOSE: Up-to-date CT equipment and radiation dose reduction techniques were employed. CTDIv ol: 64.6 mGy. DLP: 2430 mGy-cm. mGy. LIMITATIONS: Mild motion artifact FINDINGS: VENTRICLES: Normal size and contour. CEREBRUM: No masses. No hemorrhage. No midline shift. No evidence for acute infarction. Normal gra y/white matter differentiation. No areas of low density in the white matter. Mild cerebral volume lo ss. CEREBELLUM: No masses. No hemorrhage. No alteration of density. No evidence for acute infarction. EXTRAAXIAL SPACES: No fluid collections. No masses. ORBITS AND GLOBE: No intra- or extraconal masses. Normal contour of globe without masses. CALVARIUM: No fracture. PARANASAL SINUSES: No fluid or mucosal thickening. SOFT TISSUES: No mass or hematoma. OTHER: No other significant finding. IMPRESSION: NORMAL BRAIN CT WITHOUT CONTRAST. COMMENT: Quality ID # [id number]: Final reports with documentation of one or more dose reduction techniques (e.g., Automated exposure control, adjustment of the mA and/or kV according to patient size, use of iterative reconstruction technique) TECHNICAL DOCUMENTATION: JOB ID: [id number]- All Rights Reserved
--- NOTE | 2017-05-20 06:28 | RADIOLOGY REPORT (SQ) ---
EXAM DESCRIPTION: CHEST SINGLE VIEW COMPLETED DATE/TIME: 05/20/2017 6:20 am REASON FOR STUDY: altered mental status COMPARISON: 03/23/2017. EXAM PARAMETERS: NUMBER OF VIEWS: One view. TECHNIQUE: Single frontal radiographic view of the chest acquired. RADIATION DOSE: NA LIMITATIONS: None. FINDINGS: LUNGS AND PLEURA: Moderate lung volumes. Mild interstitial markings. Mild smooth thicken ing of left lower hemithoracic pleura laterally. Moderate chronic obscuration left costophrenic angl e. The MEDIASTINUM AND HILAR STRUCTURES: No masses. Contour normal. HEART AND VASCULAR STRUCTURES: Heart normal in size. Normal vasculature. BONES: No acute findings. HARDWARE: None in the chest. OTHER: No other significant finding. IMPRESSION: No acute cardiopulmonary findings pre TECHNICAL DOCUMENTATION: JOB ID: [id number]
--- NOTE | 2017-05-20 06:43 | ER Document Report ---
ED General - General Information source: Patient TRAVEL OUTSIDE OF THE U.S. IN LAST 30 DAYS: No - HPI Onset: This morning Associated symptoms: Other - see above <PRITESH SERRANO - Last Filed: 05/20/17 09:31> <MIRI MACK - Last Filed: 05/21/17 13:15> - General Chief Complaint: Altered Mental Status Stated Complaint: OTHER Time Seen by Provider: 05/20/17 05:33 Notes: Patient is a 52 year old male who presents to the ED with complaints of being confused and agitated this morning. Patients sister states he was using the wrong words and states he has been like this in the past when his ammonia levels were elevated. Patient has not been getting his lactulose doses like he should. Patient is waiting to be put on the transplant list currently and states that he has to wait 2 more months in order to get a contrasted CT prior to being put on the list. Patient has also been having "trouble with his lungs" for the past 2-3 months(cough and difficulty breathing). Patients sister adds that the patient has had a poor appetite, he correlates that to the metallic taste in his mouth. She also adds that he fell sometime during the night though he denies any injury. Patient was suppose to have Dialysis this morning at 0600 this morning at [facility]. (PRITESH SERRANO) - Related Data Allergies/Adverse Reactions: povidone-iodine [From Betadine] Allergy (Verified 05/20/17 05:47) soap [From Betadine] Allergy (Verified 05/20/17 05:47) Penicillins Adverse Reaction (Verified 05/20/17 05:47) "some kind of dialysis filter" Allergy (Uncoded 03/21/17 15:38) Past Medical History - General Information source: Patient - Social History Smoking Status: Unknown if Ever Smoked Family History: CAD, DM, Malignancy - Mother uterine cancer. - Past Medical History Cardiac Medical History: Reports: Hx Heart Murmur Pulmonary Medical History: Reports: Hx Asthma - as a child, Hx Pneumonia - 2015 Renal/ Medical History: Reports: Hx End Stage Renal Disease, Hx Hemodialysis GI Medical History: Reports: Hx Cirrhosis, Hx Liver Failure Musculoskeltal Medical History: Reports Hx Arthritis Past Surgical History: Reports: Hx Herniorrhaphy - Umbilical herniorrhaphy, right inguinal herniorrhaphy, Hx Vascular Surgery - left fistula - Immunizations Hx Diphtheria, Pertussis, Tetanus Vaccination: Yes Hx Pneumococcal Vaccination: 05/26/16 <PRITESH SERRANO - Last Filed: 05/20/17 09:31> Review of Systems - Review of Systems Constitutional: No symptoms reported EENT: No symptoms reported Cardiovascular: No symptoms reported Respiratory: See HPI, Cough, Short of breath Gastrointestinal: No symptoms reported Genitourinary: No symptoms reported Male Genitourinary: No symptoms reported Musculoskeletal: No symptoms reported Skin: No symptoms reported Hematologic/Lymphatic: No symptoms reported Neurological/Psychological: See HPI, Confusion, Other - using wrong words, agitated <PRITESH SERRANO - Last Filed: 05/20/17 09:31> Physical Exam - General General appearance: Alert - HEENT Head: Normocephalic, Atraumatic Eyes: Normal Extraocular movements intact: Yes Pupils: PERRL - Respiratory Respiratory status: No respiratory distress Breath sounds: Rhonchi - in right lung - Cardiovascular Rhythm: Regular Heart sounds: Normal auscultation Murmur: Yes - Abdominal Inspection: Normal Distension: No distension Bowel sounds: Normal Tenderness: Nontender - Back Back: Normal - Extremities General upper extremity: Normal inspection, Normal strength General lower extremity: Normal inspection, Normal strength - Neurological Neuro grossly intact: Yes - Psychological Associated symptoms: Normal affect, Normal mood - Skin Skin Temperature: Warm Skin Moisture: Dry Skin Color: Normal <PRITESH SERRANO - Last Filed: 05/20/17 09:31> - Vital signs Vitals: Resp Pulse Ox 14 100 05/20/17 05:21 05/20/17 05:21 Course - Laboratory Result Diagrams: 05/20/17 07:03 05/20/17 07:03 - Consults [facility] Time consulted: 08:47 <PRITESH SERRANO - Last Filed: 05/20/17 09:31> - Laboratory Result Diagrams: 05/20/17 07:03 05/20/17 07:03 <MIRI MACK - Last Filed: 05/21/17 13:15> - Re-evaluation Re-evalutation: 05/20/17 09:27 Patient presents emergency department with his sister with a chief complaint of altered mental status. Patient has end-stage liver disease and is trying to get on a transplant list at [place]. He also has end-stage renal disease on hemodialysis. I know this patient very well and have seen him numerous times including the last time he was here when he had an incarcerated hernia. His sister said when he woke up this morning was little confused a little irritable. She says usually when he does that his ammonia is elevated. She says he frequently misses his medications for elevated ammonia due to all the trips back and forth to the doctor's office. On my examination he is completely awake alert with a GCS of 15 he is not confused in any way shape or form he has no asterixis or ascites that needs to be drained. [facility] by a echo technologist to try to get on the transplant list. He is afebrile not tachycardic or in any respiratory distress. Laboratory evaluation his ammonia is slightly elevated 67 went ahead and ordered lactulose for that talk specifically about using that specifically as directed to prevent the ammonia level from going high. He has no chest pain shortness of breath or respiratory or cardiac complaints. His EKG is unchanged from previous. CT of the head is negative. I spoke with his dialysis unit as he was supposed to get dialyzed today. They were unable to fit him in however they are going to take him a new burn. His sister is going to take him directly there as they have done in the past to the emergency department to get dialyzed. He is to take the lactulose medication as prescribed follow-up primary care physician on Monday and specifically described reasons for ED return sooner (MIRI MACK) - Vital Signs Vital signs: Temp Pulse Resp BP Pulse Ox 98.0 F 102 H 20 92/44 L 100 05/20/17 10:01 05/20/17 05:49 05/20/17 09:46 05/20/17 10:01 05/20/17 10:01 - Laboratory Laboratory results interpreted by me: 05/20/17 05/20/17 05/20/17 07:03 07:03 07:03 RBC 2.59 L Hgb 8.0 L Hct 23.0 L RDW 15.6 H Lymphocytes % 12.1 L Monocytes % 13.9 H PT 15.5 H APTT 37.9 H Sodium 131.4 L Chloride 95 L BUN 44 H Creatinine 5.82 H Est GFR ( Amer) 12 L Est GFR (Non-Af Amer) 10 L Total Bilirubin 1.9 H Direct Bilirubin 1.3 H Alkaline Phosphatase 257 H Ammonia NT-Pro-B Natriuret Pep Albumin 2.9 L 05/20/17 05/20/17 07:03 07:03 RBC Hgb Hct RDW Lymphocytes % Monocytes % PT APTT Sodium Chloride BUN Creatinine Est GFR ( Amer) Est GFR (Non-Af Amer) Total Bilirubin Direct Bilirubin Alkaline Phosphatase Ammonia 62.1 H NT-Pro-B Natriuret Pep 69112 H Albumin - EKG Interpretation by Me Additional EKG results interpreted by me: 05/20/17 09:30 EKG sinus rhythm at 99 bpm with left axis deviation. No acute ST segment elevation or depression as compared to previous EKG done on 03/23/2017 (MIRI MACK) - Consults [facility] Reason for consultation: 05/20/17 0847 Discussed patient. They said they are unable to fit patient into dialysis today because they have a full schedule. They state that since he was scheduled first thing this morning they are unable to work him into the schedule. They state the soonest they can get him in is Monday. 05/20/17 09:15 They called back. They have a spot for the patient. He is to go to [facility] for his dialysis.. (PRITESH SERRANO) Critical Care Note - Critical Care Note Total time excluding time spent on procedures (mins): 45 <MIRI MACK - Last Filed: 05/21/17 13:15> Discharge <PRITESH SERRANO - Last Filed: 05/20/17 09:31> <MIRI MACK - Last Filed: 05/21/17 13:15> - Discharge Clinical Impression: End-stage renal disease on hemodialysis, End-stage liver disease , Elevated ammonia level Condition: Stable Disposition: HOME, SELF-CARE Additional Instructions: Liver Function Abnormality Your evaluation has shown an abnormality of your liver function. This may not be serious, but you need further testing. Abnormal liver function can be caused by alcohol, medicines, virus infections, heart failure, tumors, gallbladder problems, and many other diseases. But sometimes "abnormal" liver enzymes are "normal" -- it's just the way your liver works and there's nothing wrong. We need to be sure. If your doctor thinks the abnormal test was caused by alcohol, medicine, or a recent virus, we may just repeat the liver enzyme test later. Often, the test shows that the elevated enzymes are back to normal. Usually no treatment is necessary, except for avoiding the cause of the liver dysfunction (such as alcohol or a specific medicine). Further testing could include an ultrasound of the liver, liver scan, or perhaps a liver biopsy in difficult cases. Call the doctor if you become increasingly yellow, vomit repeatedly, begin to bruise or bleed easily, or have worsening abdominal pain. Go directly to [facility] to be dialyzed as soon as she leaves here. Return for increasing worsening or new symptoms Referrals: MILADY TOURE MD [Primary Care Provider] - Follow up as needed Scribe Attestation: 05/20/17 09:27 I personally performed the services described in the documentation reviewed the documentation recorded by my scribe in my presence and it accurately and completely records my words and actions (MIRI MACK) Scribe Documentation - Scribe Written by Anthony:: anthony Rodríguez, 05/20/2017, 911 acting as scribe for :: Beto <PRITESH SERRANO - Last Filed: 05/20/17 09:31>
[2017-05-20 07:13] LABS: ABSOLUTE BASOPHILS # (AUTO) 0.1 10^3/uL (0.0-0.2); ABSOLUTE EOSINOPHILS # (AUTO) 0.1 10^3/uL (0.0-0.6); ABSOLUTE LYMPHOCYTES (AUTO) 0.5 10^3/uL (0.5-4.7); ABSOLUTE MONOCYTES (AUTO) 0.6 10^3/uL (0.1-1.4); ABSOLUTE NEUT (AUTO) 3.1 10^3/uL (1.7-8.2); BASOPHILS % (AUTO) 1.4 % (0-2); EOSINOPHILS % (AUTO) 1.8 % (0-6); LYMPHOCYTES % (AUTO) 12.1 % (13-45); MEAN CORPUSCULAR HEMOGLOBIN 30.8 pg (27.0-33.4); MEAN CORPUSCULAR HGB CONC 34.6 g/dL (32.0-36.0); MEAN CORPUSCULAR VOLUME 89 fl (80-97); MONOCYTES % (AUTO) 13.9 % (3-13); RED BLOOD COUNT 2.59 10^6/uL (4.35-5.55); RED CELL DISTRIBUTION WIDTH 15.6 % (11.5-14.0); SEGMENTED NEUTROPHILS % (AUTO) 70.8 % (42-78); WHITE BLOOD COUNT 4.3 10^3/uL (4.0-10.5)
[2017-05-20 07:20] LABS: PARTIAL THROMBOPLASTIN TIME 37.9 SEC (23.5-35.8); PROTHROMBIN TIME 15.5 SEC (11.4-15.4)
[2017-05-20 07:24] LABS: ALANINE AMINOTRANSFERASE 23 U/L (21-72); ALBUMIN 2.9 g/dL (3.5-5.0); ALKALINE PHOSPHATASE 257 U/L (38-126); ANION GAP 14 (5-19); ASPARTATE AMINO TRANSFERASE 27 U/L (17-59); BILIRUBIN,DIRECT 1.3 mg/dL (0.0-0.4); BILIRUBIN,TOTAL 1.9 mg/dL (0.2-1.3); BLOOD UREA NITROGEN 44 mg/dL (7-20); CALCIUM 8.5 mg/dL (8.4-10.2); CARBON DIOXIDE 22 mmol/L (22-30); CHLORIDE 95 mmol/L (98-107); CREATININE RESULT 5.82 mg/dL (0.52-1.25); GLUCOSE 95 mg/dL (75-110); SODIUM 131.4 mmol/L (137-145); TOTAL PROTEIN 6.4 g/dL (6.3-8.2)
[2017-05-20 07:40] LABS: TROPONIN I < 0.012 ng/mL
[2017-05-20] MEDS ORDERED: LACTULOSE SYRUP 20 GM/30 ML UDCUP PO ONE (09:25)
[2017-05-20 10:03] VITALS: BP 92/44
--- NOTE | 2017-05-20 21:07 | EKG REPORT ---
SEVERITY:- ABNORMAL ECG - SINUS RHYTHM LEFT AXIS DEVIATION CONSIDER ANTEROSEPTAL INFARCT BORDERLINE PROLONGED QT INTERVAL : Confirmed by: Brittany Nava 20-May-2017 21:06:59
== END 2017-05-20 10:08 | disposition home or self-care (01) ==
LOC: ER 05:12
DX: Z99.2 Dependence on renal dialysis (principal); N18.6 End stage renal disease; R41.82 Altered mental status, unspecified
CPT/HCPCS: 93005; 99285; 36415; 82140; 85025; 85610; 85730; 80053; 84484; 83880; 71010; 70450; 93010; J3490

== ENCOUNTER 2017-06-02 10:42 | Day surgery (SDC) | payer MEDICAID ==
[2017-06-02 11:19] LABS: ABSOLUTE BASOPHILS # (AUTO) 0.1 10^3/uL (0.0-0.2); ABSOLUTE EOSINOPHILS # (AUTO) 0.1 10^3/uL (0.0-0.6); ABSOLUTE LYMPHOCYTES (AUTO) 0.6 10^3/uL (0.5-4.7); ABSOLUTE MONOCYTES (AUTO) 0.8 10^3/uL (0.1-1.4); ABSOLUTE NEUT (AUTO) 3.3 10^3/uL (1.7-8.2); BASOPHILS % (AUTO) 1.4 % (0-2); EOSINOPHILS % (AUTO) 2.8 % (0-6); HEMOGLOBIN 8.4 g/dL (13.5-17.0); HGB HCT DIFFERENCE -0.8; MEAN CORPUSCULAR HEMOGLOBIN 29.8 pg (27.0-33.4); MEAN CORPUSCULAR HGB CONC 32.3 g/dL (32.0-36.0); MEAN CORPUSCULAR VOLUME 92 fl (80-97); MONOCYTES % (AUTO) 16.5 % (3-13); RED BLOOD COUNT 2.82 10^6/uL (4.35-5.55); RED CELL DISTRIBUTION WIDTH 15.4 % (11.5-14.0); SEGMENTED NEUTROPHILS % (AUTO) 66.3 % (42-78)
[2017-06-02 11:23] LABS: PROTHROMBIN TIME 15.2 SEC (11.4-15.4)
[2017-06-02 11:24] LABS: PARTIAL THROMBOPLASTIN TIME 38.6 SEC (23.5-35.8)
[2017-06-02 11:49] LABS: BLOOD UREA NITROGEN 27 mg/dL (7-20); CREATININE RESULT 4.84 mg/dL (0.52-1.25)
[2017-06-02] MEDS ORDERED: ALBUMIN HUMAN 100 ML IV PRN (14:34)
[2017-06-02 15:11] VITALS: BP 102/41
--- NOTE | 2017-06-02 15:39 | RADIOLOGY REPORT (SQ) ---
EXAM DESCRIPTION: U/S ABD PARACENTESIS COMPLETED DATE/TIME: 06/02/2017 2:16 pm REASON FOR STUDY: ASCITES COMPARISON Multiple previous LIMITATIONS: None. PROCEDURE: After obtaining informed consent, the patient was brought to the ultrasound suite. The p rocedure was performed with the patient on a gurney. Ultrasound was used to identify a prominent poc ket of ascites in the left lower quadrant. An appropriate access site was selected. The patient was prepped and draped in usual sterile fashion. The access site was anesthetized with 6 mL 1% lidocai ne. A Mbnn-M-Vzfejvng needle was advanced into the fluid. After aspiration of fluid the needle, the catheter was advanced off the needle into the fluid. A total of 4,600 mL of cloudy white fluid was removed. The patient tolerated the procedure well left the department in satisfactory condition. Patient received IV albumin post procedure. No fluid specimens were sent for testing IMPRESSION: Successful ultrasound-guided therapeutic paracentesis COMMENT: Patient medication list reviewed: Yes- Quality ID# [id number]:Eligible professional attests to doc umenting in the medical record they obtained, updated, or reviewed the patient's current medications. Quality ID #76: The patient was prepped and draped using maximum sterile barrier technique including cap, mask, sterile gown, sterile gloves, a large sterile sheet, hand hygiene, and 2% Chlorhexidine fo r cutaneous antisepsis. When ultrasound is used, sterile ultrasound techniques are followed requiring sterile gel and sterile probes. Quality ID #145: Final reports for procedures using fluoroscopy that document radiation exposure jeanie dylan, or exposure time and number of fluorographic images (if radiation exposure indices are not avail able) TECHNICAL DOCUMENTATION: JOB ID: [id number] [employer]- All Rights Reserved
== END 2017-06-02 15:15 | disposition home or self-care (01) ==
LOC: RAD 10:42
PROVIDERS: ATTEND Nuclear Medicine
PROC: 0W9G3ZZ Drainage of Peritoneal Cavity, Percutaneous Approach (ICD-10-PCS; principal; 2017-06-02)
DX: K70.31 Alcoholic cirrhosis of liver with ascites (principal)
CPT/HCPCS: 36415; 84520; 82565; 85025; 85610; 85730; 49083; P9047

== ENCOUNTER 2017-06-05 17:38 | Emergency (ER) | payer MEDICAID ==
--- NOTE | 2017-06-05 18:31 | ER Document Report ---
ED Medical Screen (RME) - General Chief Complaint: Weakness Stated Complaint: WEAK,NO APPETITE Time Seen by Provider: 06/05/17 18:23 Mode of Arrival: Wheelchair Information source: Patient TRAVEL OUTSIDE OF THE [place] IN LAST 30 DAYS: No - HPI Patient complains to provider of: Generalized weakness, cough, nausea, abdominal pain Notes: 06/05/17 18:31 Patient is a 52-year-old male with a history of end-stage renal disease on dialysis, last treatment was Monday, also has a history of liver failure, presenting to the emergency room today complaining of generalized weakness, weight loss, decreased appetite, bloody mucousy stools and a cough - Related Data Allergies/Adverse Reactions: povidone-iodine [From Betadine] Allergy (Verified 06/05/17 17:52) soap [From Betadine] Allergy (Verified 06/05/17 17:52) Penicillins Adverse Reaction (Verified 06/05/17 17:52) "some kind of dialysis filter" Allergy (Uncoded 06/05/17 17:52) Past Medical History - Past Medical History Cardiac Medical History: Reports: Hx Heart Murmur Denies: Hx Coronary Artery Disease, Hx Heart Attack, Hx Hypertension Pulmonary Medical History: Reports: Hx Asthma - as a child, Hx Pneumonia - 2015 Denies: Hx Bronchitis, Hx COPD Neurological Medical History: Denies: Hx Cerebrovascular Accident, Hx Seizures Renal/ Medical History: Reports: Hx End Stage Renal Disease, Hx Hemodialysis. Denies: Hx Peritoneal Dialysis GI Medical History: Reports: Hx Cirrhosis, Hx Liver Failure Musculoskeltal Medical History: Reports Hx Arthritis Past Surgical History: Reports: Hx Herniorrhaphy - Umbilical herniorrhaphy, right inguinal herniorrhaphy, Hx Vascular Surgery - left fistula - Immunizations Hx Diphtheria, Pertussis, Tetanus Vaccination: Yes Physical Exam - Vital signs Vitals: Temp Pulse Resp BP Pulse Ox 97.8 F 97 18 107/34 L 100 06/05/17 17:49 06/05/17 17:49 06/05/17 17:49 06/05/17 17:49 06/05/17 17:49 Course - Vital Signs Vital signs: Temp Pulse Resp BP Pulse Ox 97.8 F 97 18 107/34 L 100 06/05/17 17:49 06/05/17 17:49 06/05/17 17:49 06/05/17 17:49 06/05/17 17:49
--- NOTE | 2017-06-05 19:09 | RADIOLOGY REPORT (SQ) ---
EXAM DESCRIPTION: CHEST PA/LAT COMPLETED DATE/TIME: 06/05/2017 6:58 pm REASON FOR STUDY: cough COMPARISON: January 2017 EXAM PARAMETERS: NUMBER OF VIEWS: two views TECHNIQUE: Digital Frontal and Lateral radiographic views of the chest acquired. RADIATION DOSE: NA LIMITATIONS: Patient has made a shallow inspiration. FINDINGS: LUNGS AND PLEURA: No opacities, masses or pneumothorax. Chronic appearing pleural changes are again identified in the left hemithorax. There is a small nodular component on the current stud y and a follow-up chest x-ray is recommended to exclude an underlying process. MEDIASTINUM AND HILAR STRUCTURES: No masses or contour abnormalities. HEART AND VASCULAR STRUCTURES: Heart normal size. No evidence for failure. BONES: No acute findings. HARDWARE: None in the chest. OTHER: No other significant finding. IMPRESSION: Chronic appearing pleural changes on the left as noted above. There is a small nodular component on the current study and a followup chest x-ray is recommended to exclude an underlying pro cess. Other findings as noted above. TECHNICAL DOCUMENTATION: JOB ID: [id number] [employer]- All Rights Reserved
[2017-06-05 19:48] LABS: ABSOLUTE BASOPHILS # (AUTO) 0.1 10^3/uL (0.0-0.2); ABSOLUTE EOSINOPHILS # (AUTO) 0.2 10^3/uL (0.0-0.6); ABSOLUTE LYMPHOCYTES (AUTO) 0.7 10^3/uL (0.5-4.7); ABSOLUTE MONOCYTES (AUTO) 1.2 10^3/uL (0.1-1.4); ABSOLUTE NEUT (AUTO) 4.2 10^3/uL (1.7-8.2); BASOPHILS % (AUTO) 1.8 % (0-2); EOSINOPHILS % (AUTO) 3.4 % (0-6); HEMATOCRIT 26.3 % (37.9-51.0); HEMOGLOBIN 8.6 g/dL (13.5-17.0); HGB HCT DIFFERENCE -0.5; LYMPHOCYTES % (AUTO) 11.1 % (13-45); MEAN CORPUSCULAR HEMOGLOBIN 29.9 pg (27.0-33.4); MEAN CORPUSCULAR HGB CONC 32.7 g/dL (32.0-36.0); MEAN CORPUSCULAR VOLUME 91 fl (80-97); MONOCYTES % (AUTO) 18.4 % (3-13); RED BLOOD COUNT 2.88 10^6/uL (4.35-5.55); RED CELL DISTRIBUTION WIDTH 16.1 % (11.5-14.0); SEGMENTED NEUTROPHILS % (AUTO) 65.3 % (42-78); WHITE BLOOD COUNT 6.5 10^3/uL (4.0-10.5)
[2017-06-05 20:00] LABS: ALANINE AMINOTRANSFERASE 22 U/L (21-72); ALBUMIN 3.2 g/dL (3.5-5.0); ALKALINE PHOSPHATASE 206 U/L (38-126); ANION GAP 14 (5-19); ASPARTATE AMINO TRANSFERASE 25 U/L (17-59); BILIRUBIN,DIRECT 1.4 mg/dL (0.0-0.4); BILIRUBIN,TOTAL 1.9 mg/dL (0.2-1.3); BLOOD UREA NITROGEN 57 mg/dL (7-20); CALCIUM 8.7 mg/dL (8.4-10.2); CARBON DIOXIDE 22 mmol/L (22-30); CHLORIDE 92 mmol/L (98-107); CREATININE RESULT 7.41 mg/dL (0.52-1.25); GLUCOSE 119 mg/dL (75-110); LIPASE 199.9 U/L (23-300); POTASSIUM 4.9 mmol/L (3.6-5.0); SODIUM 127.8 mmol/L (137-145); TOTAL PROTEIN 7.1 g/dL (6.3-8.2)
[2017-06-05] MEDS ORDERED: NORMAL SALINE 500 ML IV ONE (22:25)
--- NOTE | 2017-06-05 22:26 | ER Document Report ---
ED General - General Chief Complaint: Weakness Stated Complaint: WEAK,NO APPETITE Time Seen by Provider: 06/05/17 18:23 Mode of Arrival: Wheelchair Notes: The pt is a 52 yo male, PMHx ESRD ([facility]), liver failure from alcoholic cirrhosis, presents with multiple complaints. He is feeling generalized weakness, having chills and no appetite for several months. He is also having a cough with clear sputum for past 5 days. Patient called his liver change coordinator at [facility] and said that he could be seen tomorrow, but the patient decided to come to the emergency room for further evaluation. Patient denies nausea, vomiting, abdominal pain, chest pain, shortness of breath, headache, rash or objective fevers. TRAVEL OUTSIDE OF THE [place] IN LAST 30 DAYS: No - Related Data Allergies/Adverse Reactions: povidone-iodine [From Betadine] Allergy (Verified 06/05/17 17:52) soap [From Betadine] Allergy (Verified 06/05/17 17:52) Penicillins Adverse Reaction (Verified 06/05/17 17:52) "some kind of dialysis filter" Allergy (Uncoded 06/05/17 17:52) Past Medical History - General Information source: Patient - Social History Smoking Status: Unknown if Ever Smoked Family History: CAD, DM, Malignancy - Mother uterine cancer. - Past Medical History Cardiac Medical History: Reports: Hx Heart Murmur Denies: Hx Coronary Artery Disease, Hx Heart Attack, Hx Hypertension Pulmonary Medical History: Reports: Hx Asthma - as a child, Hx Pneumonia - 2015 Denies: Hx Bronchitis, Hx COPD Neurological Medical History: Denies: Hx Cerebrovascular Accident, Hx Seizures Renal/ Medical History: Reports: Hx End Stage Renal Disease, Hx Hemodialysis. Denies: Hx Peritoneal Dialysis GI Medical History: Reports: Hx Cirrhosis, Hx Liver Failure Musculoskeltal Medical History: Reports Hx Arthritis Past Surgical History: Reports: Hx Herniorrhaphy - Umbilical herniorrhaphy, right inguinal herniorrhaphy, Hx Vascular Surgery - left fistula - Immunizations Hx Diphtheria, Pertussis, Tetanus Vaccination: Yes Hx Pneumococcal Vaccination: 05/26/16 Review of Systems - Review of Systems Notes: REVIEW OF SYSTEMS: CONSTITUTIONAL: -fevers, +chills EENT: -eye pain, -difficulty swallowing, -nasal congestion CARDIOVASCULAR:-chest pain, -syncope. RESPIRATORY: +cough, -SOB GASTROINTESTINAL: -abdominal pain, -nausea, -vomiting, -diarrhea GENITOURINARY: -dysuria, -hematuria MUSCULOSKELETAL: -back pain, -neck pain SKIN: -rash or skin lesions. HEMATOLOGIC: -easy bruising or bleeding. LYMPHATIC: -swollen, enlarged glands. NEUROLOGICAL: -altered mental status or loss of consciousness, -headache, - neurologic symptoms PSYCHIATRIC: -anxiety, -depression. ALL OTHER SYSTEMS REVIEWED AND NEGATIVE. Physical Exam - Vital signs Vitals: Temp Pulse Resp BP Pulse Ox 97.8 F 97 18 107/34 L 100 06/05/17 17:49 06/05/17 17:49 06/05/17 17:49 06/05/17 17:49 06/05/17 17:49 - Notes Notes: PHYSICAL EXAMINATION: GENERAL: Well-appearing, well-nourished and in no acute distress. HEAD: Atraumatic, normocephalic. EYES: Pupils equal round and reactive to light, extraocular movements intact, sclera anicteric, conjunctiva are normal. ENT: nares patent, oropharynx clear without exudates. Moist mucous membranes. NECK: Normal range of motion, supple without lymphadenopathy LUNGS: Breath sounds clear to auscultation bilaterally and equal. No wheezes rales or rhonchi. HEART: Regular rate and rhythm without murmurs ABDOMEN: Soft, nontender, normoactive bowel sounds. No guarding, no rebound. No masses appreciated. EXTREMITIES: Normal range of motion, no pitting or edema. No cyanosis. NEUROLOGICAL: Cranial nerves grossly intact. Normal speech, normal gait. Normal sensory and motor exams. PSYCH: Normal mood, normal affect. SKIN: Warm, Dry, normal turgor, no rashes or lesions noted. Course - Re-evaluation Re-evalutation: Patient appears well. His labs are consistent with his ESRD and he is due for dialysis tomorrow. Patient has no emergent findings on his lab and has an appointment with his liver doctor at [facility] this week. Given strict return precautions and he understands. - Vital Signs Vital signs: Temp Pulse Resp BP Pulse Ox 97.4 F 97 18 98/48 L 99 06/05/17 23:17 06/05/17 17:49 06/05/17 23:12 06/05/17 23:00 06/05/17 23:12 - Laboratory Result Diagrams: 06/05/17 19:36 06/05/17 19:36 Laboratory results interpreted by me: 06/05/17 06/05/17 19:36 19:36 RBC 2.88 L Hgb 8.6 L Hct 26.3 L RDW 16.1 H Lymphocytes % 11.1 L Monocytes % 18.4 H Sodium 127.8 L Chloride 92 L BUN 57 H Creatinine 7.41 H Est GFR ( Amer) 9 L Est GFR (Non-Af Amer) 8 L Glucose 119 H Total Bilirubin 1.9 H Direct Bilirubin 1.4 H Alkaline Phosphatase 206 H Albumin 3.2 L - Diagnostic Test Radiology reviewed: Image reviewed, Reports reviewed Discharge - Discharge Clinical Impression: Generalized muscle weakness, Cough Condition: Stable Disposition: HOME, SELF-CARE Additional Instructions: Follow with your primary care physician and liver doctor for further evaluation and treatment. BRONCHITIS: You have acute bronchitis. This disease is an infection or inflammation of the air passageways in your lungs. Symptoms usually include cough, low grade fever, shortness of breath, and wheezing. The cough usually persists for a couple of weeks. Most cases of bronchitis get better without antibiotics. We prescribe antibiotics when we believe bacteria are damaging your airways, or if there's high risk the bronchitis will worsen into pneumonia. Increase your fluid intake. A cool mist humidifier may make your lungs more comfortable. An expectorant (cough medicine that loosens phlegm) can help. If you smoke, STOP!!! Recovery from bronchitis can be somewhat slow, but you should see improvement within a day or two. Repeated episodes of bronchitis may result in lung damage -- for example, chronic bronchitis, recurrent pneumonias, or emphysema. Call the doctor if you develop increasing fever, shortness of breath, chest pain, bloody sputum, or otherwise worsen. If you have not improved at all after several days, contact the physician. COUGH-SUPPRESSANT & EXPECTORANT MEDICATION: You are to use a cough medication as needed for relief of symptoms. This medicine is a combination of an expectorant (to make the mucous thinner and more easily "coughed up") and a cough suppressant (to reduce the frequency of coughing). The cough-suppressant medicine is related to narcotics. You may experience mild nausea and sleepiness. Some patients who are very sensitive to narcotics may have stomach pain from this medicine. Taking the medicine with food reduces these side effects. Do not drive or work with machinery until you know how this medicine affects you. The expectorant should have no side effects. Iodine-containing expectorants (such as organidin) should not be taken by persons with active thyroid disease unless approved by your doctor. Call the doctor if you develop shortness of breath, hives, rash, itching, lightheadedness, or severe nausea and vomiting. USE OF ACETAMINOPHEN (Tylenol): Acetaminophen may be taken for pain relief or fever control. It's much safer than aspirin, offering a wider range of "safe" dosages. It is safe during . Some brand names are Tylenol, Panadol, Datril, Anacin 3, Tempra, and Liquiprin. Acetaminophen can be repeated every four hours. The following are maximum recommended dosages: >89 pounds or adults 650 mg to 900 mg Acetaminophen can be repeated every four hours. Maximum dose not to exceed 4000 mg a day. SMOKING: If you smoke, you should stop smoking. The tar and chemicals in cigarette smoke are harmful. Smoking has been shown to cause: emphysema chronic bronchitis lung cancer mouth and throat cancer stomach and pancreas cancer premature aging defects In addition, smoking increases ear and lung infections in children of smokers. FOLLOW-UP CARE: If you have been referred to a physician for follow-up care, call the physician s office for an appointment as you were instructed or within the next two days. If you experience worsening or a significant change in your symptoms, notify the physician immediately or return to the Emergency Department at any time for re-evaluation. Referrals: MARGARET TOURE MD [Primary Care Provider] - Follow up as needed
[2017-06-05 23:17] VITALS: BP 98/48
--- NOTE | 2017-06-06 07:02 | EKG REPORT ---
SEVERITY:- ABNORMAL ECG - SINUS RHYTHM BORDERLINE LEFT AXIS DEVIATION PROLONGED QT INTERVAL : Confirmed by: Brittany Nava 06-Jun-2017 07:01:44
== END 2017-06-05 23:30 | disposition home or self-care (01) ==
LOC: ER 17:38
DX: R53.1 Weakness (principal); R05 Cough; R63.0 Anorexia; N18.6 End stage renal disease; K70.40 Alcoholic hepatic failure without coma; K70.30 Alcoholic cirrhosis of liver without ascites
CPT/HCPCS: 93005; 99285; 36415; 87040; 83690; 85025; 87077; 80053; 71020; 93010; J7040; 87186

== ENCOUNTER 2017-06-16 10:30 | Day surgery (SDC) | payer MEDICAID ==
[2017-06-16 11:05] LABS: HEMATOCRIT 27.8 % (37.9-51.0); HEMOGLOBIN 9.4 g/dL (13.5-17.0); HGB HCT DIFFERENCE 0.4; MEAN CORPUSCULAR HEMOGLOBIN 29.8 pg (27.0-33.4); MEAN CORPUSCULAR HGB CONC 33.8 g/dL (32.0-36.0); MEAN CORPUSCULAR VOLUME 88 fl (80-97); RED BLOOD COUNT 3.15 10^6/uL (4.35-5.55); RED CELL DISTRIBUTION WIDTH 16.2 % (11.5-14.0); WHITE BLOOD COUNT 6.2 10^3/uL (4.0-10.5)
[2017-06-16 11:07] LABS: PROTHROMBIN TIME 15.7 SEC (11.4-15.4)
[2017-06-16 11:08] LABS: PARTIAL THROMBOPLASTIN TIME 37.2 SEC (23.5-35.8)
[2017-06-16 11:24] LABS: BLOOD UREA NITROGEN 31 mg/dL (7-20); CREATININE RESULT 4.64 mg/dL (0.52-1.25)
[2017-06-16] MEDS ORDERED: DEXTROSE 5%-1/2 NORMAL SALINE 1,000 ML IV PRN (14:15)
[2017-06-16] MEDS: ALBUMIN HUMAN 50 ML IV PRN ×2 (14:50→15:18)
--- NOTE | 2017-06-16 15:02 | RADIOLOGY REPORT (SQ) ---
EXAM DESCRIPTION: U/S ABD PARACENTESIS COMPLETED DATE/TIME: 06/16/2017 2:05 pm REASON FOR STUDY: ASCITES COMPARISON Multiple previous LIMITATIONS: None. PROCEDURE: After obtaining informed consent, the patient was brought to the ultrasound suite. The p rocedure was performed with the patient on a gurney. Ultrasound was used to identify a prominent poc ket of ascites in the left lower quadrant. An appropriate access site was selected. The patient was prepped and draped in usual sterile fashion. The access site was anesthetized with 7 mL 1% lidocai ne. A Uizm-N-Xyrcuqvy needle was advanced into the fluid. After aspiration of fluid the needle, the catheter was advanced off the needle into the fluid. A total of 4,000 mL of cloudy pink fluid was r emoved. The patient tolerated the procedure well left the department in satisfactory condition. No diagnostic testing on the fluid. Patient received IV albumin post procedure. IMPRESSION: Successful ultrasound-guided therapeutic paracentesis COMMENT: Patient medication list reviewed: Yes- Quality ID# [id number]:Eligible professional attests to doc umenting in the medical record they obtained, updated, or reviewed the patient's current medications. Quality ID #[id number]: The patient was prepped and draped using maximum sterile barrier technique including cap, mask, sterile gown, sterile gloves, a large sterile sheet, hand hygiene, and 2% Chlorhexidine fo r cutaneous antisepsis. When ultrasound is used, sterile ultrasound techniques are followed requiring sterile gel and sterile probes. Quality ID #[id number]: Final reports for procedures using fluoroscopy that document radiation exposure jeanie dylan, or exposure time and number of fluorographic images (if radiation exposure indices are not avail able) TECHNICAL DOCUMENTATION: JOB ID: [id number] [employer]- All Rights Reserved
[2017-06-16 15:52] VITALS: BP 99/46
== END 2017-06-16 15:50 | disposition home or self-care (01) ==
LOC: RAD 10:30
PROVIDERS: ATTEND Nuclear Medicine
PROC: 0W9G3ZZ Drainage of Peritoneal Cavity, Percutaneous Approach (ICD-10-PCS; principal; 2017-06-16)
DX: R18.8 Other ascites (principal); K74.60 Unspecified cirrhosis of liver; N18.6 End stage renal disease
CPT/HCPCS: 36415; 84520; 82565; 85027; 85610; 85730; 49083; P9047

== ENCOUNTER 2017-06-28 05:15 | Day surgery (SDC) | payer MEDICAID ==
[2017-06-28 07:47] LABS: BLOOD UREA NITROGEN 36 mg/dL (7-20); CREATININE RESULT 5.05 mg/dL (0.52-1.25)
[2017-06-28 08:08] LABS: PROTHROMBIN TIME 16.2 SEC (11.4-15.4)
[2017-06-28 08:09] LABS: PARTIAL THROMBOPLASTIN TIME 36.9 SEC (23.5-35.8)
[2017-06-28 08:11] LABS: HEMOGLOBIN 8.2 g/dL (13.5-17.0); HGB HCT DIFFERENCE 0.6; MEAN CORPUSCULAR HEMOGLOBIN 29.7 pg (27.0-33.4); MEAN CORPUSCULAR HGB CONC 34.2 g/dL (32.0-36.0); MEAN CORPUSCULAR VOLUME 87 fl (80-97); RED BLOOD COUNT 2.76 10^6/uL (4.35-5.55); RED CELL DISTRIBUTION WIDTH 16.3 % (11.5-14.0); WHITE BLOOD COUNT 3.6 10^3/uL (4.0-10.5)
[2017-06-28] MEDS ORDERED: ALBUMIN HUMAN 100 ML IV PRN (10:42)
--- NOTE | 2017-06-28 12:07 | RADIOLOGY REPORT (SQ) ---
EXAM DESCRIPTION: U/S ABD PARACENTESIS COMPLETED DATE/TIME: 06/28/2017 10:28 am REASON FOR STUDY: ASCITES COMPARISON 06/16/2017, 06/02/2017 LIMITATIONS: None. PROCEDURE: After obtaining informed consent, the patient was brought to the ultrasound suite. The p rocedure was performed with the patient on a gurney. Ultrasound was used to identify a prominent poc ket of ascites in the left lower quadrant. An appropriate access site was selected. The patient was prepped and draped in usual sterile fashion. The access site was anesthetized with 5.5 mL 1% lidoc domenica. A Kjya-Y-Zlgudnhn needle was advanced into the fluid. After aspiration of fluid the needle, t he catheter was advanced off the needle into the fluid. A total of 2,650 mL of cloudy pink fluid was removed. The patient tolerated the procedure well left the department in satisfactory condition. IMPRESSION: Successful ultrasound-guided therapeutic paracentesis No fluid was sent for testing. COMMENT: Patient medication list reviewed: Yes- Quality ID# [id number]:Eligible professional attests to doc umenting in the medical record they obtained, updated, or reviewed the patient's current medications. Quality ID #[id number]: The patient was prepped and draped using maximum sterile barrier technique including cap, mask, sterile gown, sterile gloves, a large sterile sheet, hand hygiene, and 2% Chlorhexidine fo r cutaneous antisepsis. When ultrasound is used, sterile ultrasound techniques are followed requiring sterile gel and sterile probes. Quality ID #[id number]: Final reports for procedures using fluoroscopy that document radiation exposure jeanie dylan, or exposure time and number of fluorographic images (if radiation exposure indices are not avail able) TECHNICAL DOCUMENTATION: JOB ID: [id number] [employer]- All Rights Reserved
[2017-06-28 12:27] VITALS: BP 104/48
== END 2017-06-28 12:10 | disposition home or self-care (01) ==
LOC: RAD 05:15
PROVIDERS: ATTEND Nuclear Medicine
PROC: 0W9G3ZZ Drainage of Peritoneal Cavity, Percutaneous Approach (ICD-10-PCS; principal; 2017-06-28)
DX: R18.8 Other ascites (principal); N18.6 End stage renal disease; K74.60 Unspecified cirrhosis of liver; Z88.0 Allergy status to penicillin
CPT/HCPCS: 36415; 84520; 82565; 85027; 85610; 85730; 49083; P9047

== ENCOUNTER 2017-08-02 07:45 | Day surgery (SDC) | payer MEDICAID ==
[2017-08-02 08:42] LABS: PARTIAL THROMBOPLASTIN TIME 40.9 SEC (23.5-35.8); PROTHROMBIN TIME 14.5 SEC (11.4-15.4)
[2017-08-02 11:41] VITALS: BP 106/49
--- NOTE | 2017-08-02 14:57 | RADIOLOGY REPORT (SQ) ---
EXAM DESCRIPTION: U/S ABD PARACENTESIS COMPLETED DATE/TIME: 08/02/2017 10:34 am REASON FOR STUDY: ASCITES COMPARISON Multiple previous LIMITATIONS: None. PROCEDURE: After obtaining informed consent, the patient was brought to the ultrasound suite. The p rocedure was performed with the patient on a gurney. Ultrasound was used to identify a prominent poc ket of ascites in the right lower quadrant. An appropriate access site was selected. The patient wa s prepped and draped in usual sterile fashion. The access site was anesthetized with 6 mL 1% lidoca ine. A Eopj-R-Ccxkmfmw needle was advanced into the fluid. After aspiration of fluid the needle, th e catheter was advanced off the needle into the fluid. A total of 3,250 mL of cloudy pink fluid was removed. The patient tolerated the procedure well left the department in satisfactory condition. IMPRESSION: Successful ultrasound-guided therapeutic paracentesis COMMENT: Patient medication list reviewed: Yes- Quality ID# [id number]:Eligible professional attests to doc umenting in the medical record they obtained, updated, or reviewed the patient's current medications. Quality ID #[id number]: The patient was prepped and draped using maximum sterile barrier technique including cap, mask, sterile gown, sterile gloves, a large sterile sheet, hand hygiene, and 2% Chlorhexidine fo r cutaneous antisepsis. When ultrasound is used, sterile ultrasound techniques are followed requiring sterile gel and sterile probes. Quality ID #[id number]: Final reports for procedures using fluoroscopy that document radiation exposure jeanie dylan, or exposure time and number of fluorographic images (if radiation exposure indices are not avail able) TECHNICAL DOCUMENTATION: JOB ID: [id number] [employer]- All Rights Reserved
== END 2017-08-02 11:42 | disposition home or self-care (01) ==
LOC: RAD 07:45
PROVIDERS: ATTEND Internal Medicine Gastroenterology
PROC: 0W9G3ZZ Drainage of Peritoneal Cavity, Percutaneous Approach (ICD-10-PCS; principal; 2017-08-02)
DX: R18.8 Other ascites (principal)
CPT/HCPCS: 36415; 49083; 85610; 85730

== ENCOUNTER 2017-08-16 06:16 | Day surgery (SDC) | payer MEDICAID ==
[2017-08-16 07:25] LABS: HEMATOCRIT 32.2 % (37.9-51.0); HEMOGLOBIN 10.7 g/dL (13.5-17.0); HGB HCT DIFFERENCE -0.1; MEAN CORPUSCULAR HGB CONC 33.1 g/dL (32.0-36.0); MEAN CORPUSCULAR VOLUME 88 fl (80-97); RED BLOOD COUNT 3.68 10^6/uL (4.35-5.55); RED CELL DISTRIBUTION WIDTH 18.8 % (11.5-14.0); WHITE BLOOD COUNT 3.6 10^3/uL (4.0-10.5)
[2017-08-16 07:41] LABS: BLOOD UREA NITROGEN 22 mg/dL (7-20); CREATININE RESULT 4.54 mg/dL (0.52-1.25)
[2017-08-16 07:44] LABS: PROTHROMBIN TIME 15.5 SEC (11.4-15.4)
[2017-08-16 07:45] LABS: PARTIAL THROMBOPLASTIN TIME 38.3 SEC (23.5-35.8)
[2017-08-16 12:00] VITALS: BP 98/45
--- NOTE | 2017-08-16 12:40 | RADIOLOGY REPORT (SQ) ---
EXAM DESCRIPTION: U/S ABD PARACENTESIS COMPLETED DATE/TIME: 08/16/2017 10:59 am REASON FOR STUDY: ASCITES COMPARISON Multiple previous LIMITATIONS: None. PROCEDURE: After obtaining informed consent, the patient was brought to the ultrasound suite. The p rocedure was performed with the patient on a gurney. Ultrasound was used to identify a prominent poc ket of ascites in the left lower quadrant. An appropriate access site was selected. The patient was prepped and draped in usual sterile fashion. The access site was anesthetized with 5.5 mL 1% lidoc domenica. A Gofb-F-Nxoqarhd needle was advanced into the fluid. After aspiration of fluid the needle, t he catheter was advanced off the needle into the fluid. A total of 2,500 mL of cloudy pale yellow fl uid was removed. The patient tolerated the procedure well left the department in satisfactory conditi on. No specimens were sent for testing. IMPRESSION: Successful ultrasound-guided therapeutic paracentesis COMMENT: Patient medication list reviewed: Yes- Quality ID# [id number]:Eligible professional attests to doc umenting in the medical record they obtained, updated, or reviewed the patient's current medications. Quality ID #76: The patient was prepped and draped using maximum sterile barrier technique including cap, mask, sterile gown, sterile gloves, a large sterile sheet, hand hygiene, and 2% Chlorhexidine fo r cutaneous antisepsis. When ultrasound is used, sterile ultrasound techniques are followed requiring sterile gel and sterile probes. Quality ID #[id number]: Final reports for procedures using fluoroscopy that document radiation exposure jeanie dylan, or exposure time and number of fluorographic images (if radiation exposure indices are not avail able) TECHNICAL DOCUMENTATION: JOB ID: [id number] [employer]- All Rights Reserved
== END 2017-08-16 12:00 | disposition home or self-care (01) ==
LOC: RAD 06:16
PROVIDERS: ATTEND Internal Medicine Gastroenterology
PROC: 0W9G3ZZ Drainage of Peritoneal Cavity, Percutaneous Approach (ICD-10-PCS; principal; 2017-08-16)
DX: R18.8 Other ascites (principal); K74.60 Unspecified cirrhosis of liver; N18.6 End stage renal disease; R01.1 Cardiac murmur, unspecified; Z88.0 Allergy status to penicillin
CPT/HCPCS: 36415; 49083; 82565; 84520; 85027; 85610; 85730

== ENCOUNTER 2017-10-04 06:24 | Day surgery (SDC) | payer MEDICAID ==
[2017-10-04 07:03] LABS: HEMATOCRIT 33.3 % (37.9-51.0); HEMOGLOBIN 11.2 g/dL (13.5-17.0); MEAN CORPUSCULAR HEMOGLOBIN 30.1 pg (27.0-33.4); MEAN CORPUSCULAR HGB CONC 33.6 g/dL (32.0-36.0); MEAN CORPUSCULAR VOLUME 90 fl (80-97); PLATELET COUNT 127 10^3/uL (150-450); RED BLOOD COUNT 3.72 10^6/uL (4.35-5.55); RED CELL DISTRIBUTION WIDTH 18.8 % (11.5-14.0); WHITE BLOOD COUNT 3.5 10^3/uL (4.0-10.5)
[2017-10-04 07:09] LABS: INTERNATIONAL RATION (INR) 1.07; PROTHROMBIN TIME 14.7 SEC (11.4-15.4)
[2017-10-04 07:10] LABS: PARTIAL THROMBOPLASTIN TIME 36.8 SEC (23.5-35.8)
[2017-10-04 08:45] LABS: BLOOD UREA NITROGEN 32 mg/dL (7-20)
--- NOTE | 2017-10-04 10:23 | RADIOLOGY REPORT (SQ) ---
EXAM DESCRIPTION: U/S ABD PARACENTESIS COMPLETED DATE/TIME: 10/04/2017 9:58 am REASON FOR STUDY: ASCITES COMPARISON Multiple previous most recently 08/16/2017 LIMITATIONS: None. PROCEDURE: After obtaining informed consent, the patient was brought to the ultrasound suite. The p rocedure was performed with the patient on a gurney. Ultrasound was used to identify a prominent poc ket of ascites in the left lower quadrant. An appropriate access site was selected. The patient was prepped and draped in usual sterile fashion. The access site was anesthetized with 8 mL 1% lidocai ne. A Zsnf-H-Wbukrdgw needle was advanced into the fluid. After aspiration of fluid the needle, the catheter was advanced off the needle into the fluid. A total of 3,500 mL of cloudy fluid was remove d. The patient tolerated the procedure well left the department in satisfactory condition. A specimen of the ascites was sent for Gram stain culture and sensitivity IMPRESSION: Successful ultrasound-guided therapeutic paracentesis The specimen of the ascites was sent for Gram stain, culture and sensitivity today COMMENT: Patient medication list reviewed: Yes- Quality ID# [id number]:Eligible professional attests to doc umenting in the medical record they obtained, updated, or reviewed the patient's current medications. Quality ID #[id number]: The patient was prepped and draped using maximum sterile barrier technique including cap, mask, sterile gown, sterile gloves, a large sterile sheet, hand hygiene, and 2% Chlorhexidine fo r cutaneous antisepsis. When ultrasound is used, sterile ultrasound techniques are followed requiring sterile gel and sterile probes. Quality ID #[id number]: Final reports for procedures using fluoroscopy that document radiation exposure jeanie dylan, or exposure time and number of fluorographic images (if radiation exposure indices are not avail able) TECHNICAL DOCUMENTATION: JOB ID: [id number] [employer]- All Rights Reserved
[2017-10-04 10:46] VITALS: BP 114/56
== END 2017-10-04 10:45 | disposition home or self-care (01) ==
LOC: RAD 06:24
PROVIDERS: ATTEND Internal Medicine Gastroenterology
PROC: 0W9F3ZZ Drainage of Abdominal Wall, Percutaneous Approach (ICD-10-PCS; principal; 2017-10-04)
DX: R18.8 Other ascites (principal); K70.31 Alcoholic cirrhosis of liver with ascites; D63.1 Anemia in chronic kidney disease; G62.1 Alcoholic polyneuropathy; N18.6 End stage renal disease; Z99.2 Dependence on renal dialysis; I95.9 Hypotension, unspecified; E16.2 Hypoglycemia, unspecified; C20 Malignant neoplasm of rectum; D61.818 Other pancytopenia; I35.0 Nonrheumatic aortic (valve) stenosis; Z79.899 Other long term (current) drug therapy
CPT/HCPCS: 36415; 49083; 82565; 84520; 85027; 85610; 85730; 87070; 87075; 87205

== ENCOUNTER 2017-10-20 04:41 | Emergency (ER) | payer MEDICAID ==
--- NOTE | 2017-10-20 05:41 | RADIOLOGY REPORT (SQ) ---
EXAM DESCRIPTION: HIP LEFT AP/LATERAL CLINICAL HISTORY: fall COMPARISON: None. FINDINGS: Single view of the pelvis and lateral view of the left hip. Acute mildly displaced subcapital fracture of the left femoral neck. Atherosclerotic vascular calcification. Osteopenia. No other fractures identified. IMPRESSION: 1. Acute mildly displaced subcapital fracture of the left femoral neck.
[2017-10-20] MEDS ORDERED: HYDROMORPHONE HCL INJ/PF 2 MG/ML AMPULE IV ONE ×2 (06:06→12:15)
--- NOTE | 2017-10-20 06:42 | ER Document Report ---
ED General - General Chief Complaint: Facial Injury Stated Complaint: FALL/HIP PAIN Time Seen by Provider: 10/20/17 06:05 Mode of Arrival: Medic Information source: Patient Notes: 52-year-old male history of renal cancer liver failure dialysis presents after a mechanical fall injuring the left hip. Patient admits to being unable to ambulate notes he was having neuropathy and cannot feel his legs when he fell TRAVEL OUTSIDE OF THE [place] IN LAST 30 DAYS: No - HPI Onset: Just prior to arrival Onset/Duration: Sudden Quality of pain: Sharp Severity: Moderate Pain Level: 2 Associated symptoms: Body/muscle aches Exacerbated by: Movement Relieved by: Denies Similar symptoms previously: No Recently seen / treated by doctor: No - Related Data Allergies/Adverse Reactions: povidone-iodine [From Betadine] Allergy (Verified 08/02/17 08:24) soap [From Betadine] Allergy (Verified 08/02/17 08:24) Penicillins Adverse Reaction (Verified 08/02/17 08:24) "some kind of dialysis filter" Allergy (Uncoded 08/02/17 08:24) Past Medical History - Social History Smoking Status: Never Smoker Cigarette use (# per day): No Chew tobacco use (# tins/day): No Smoking Education Provided: No Frequency of alcohol use: None Drug Abuse: None Family History: CAD, DM, Malignancy Patient has suicidal ideation: No Patient has homicidal ideation: No - Past Medical History Cardiac Medical History: Reports: Hx Heart Murmur Denies: Hx Coronary Artery Disease, Hx Heart Attack, Hx Hypertension Pulmonary Medical History: Reports: Hx Asthma - A CHILD, Hx Pneumonia - 2015 Denies: Hx Bronchitis, Hx COPD Neurological Medical History: Denies: Hx Cerebrovascular Accident, Hx Seizures Renal/ Medical History: Reports: Hx End Stage Renal Disease, Hx Hemodialysis, Hx Peritoneal Dialysis GI Medical History: Reports: Hx Cirrhosis, Hx Liver Failure Musculoskeltal Medical History: Reports Hx Arthritis Past Surgical History: Reports: Hx Herniorrhaphy - Umbilical herniorrhaphy, right inguinal herniorrhaphy, Hx Vascular Surgery - left fistula - Immunizations Hx Diphtheria, Pertussis, Tetanus Vaccination: Yes Hx Pneumococcal Vaccination: 05/26/16 Review of Systems - Review of Systems Notes: REVIEW OF SYSTEMS: CONSTITUTIONAL : Denies fever, chills, or sweats. Denies recent illness. EENT: Denies eye, ear, throat, or mouth pain or symptoms. Denies nasal or sinus congestion or discharge. Denies throat, tongue, or mouth swelling or difficulty swallowing. CARDIOVASCULAR: Denies chest pain. Denies palpitations or racing or irregular heart beat. Denies ankle edema. RESPIRATORY: Denies cough, cold, or chest congestion. Denies shortness of breath, difficulty breathing, or wheezing. GASTROINTESTINAL: Denies abdominal pain or distention. Denies nausea, vomiting , or diarrhea. Denies blood in vomitus, stools, or per rectum. Denies black, tarry stools. Denies constipation. GENITOURINARY: Denies difficulty urinating, painful urination, burning, frequency, blood in urine, or discharge. MUSCULOSKELETAL: Left hip pain SKIN: Denies rash, lesions or sores. HEMATOLOGIC : Denies easy bruising or bleeding. LYMPHATIC: Denies swollen, enlarged glands. NEUROLOGICAL: Denies confusion or altered mental status. Denies passing out or loss of consciousness. Denies dizziness or lightheadedness. Denies headache. Denies weakness or paralysis or loss of use of either side. Denies problems with gait or speech. Denies sensory loss, numbness, or tingling. Denies seizures. PSYCHIATRIC: Denies anxiety or stress. Denies depression, suicidal ideation, or homicidal ideation. ALL OTHER SYSTEMS REVIEWED AND NEGATIVE. Dictation was performed using [employer] voice recognition software PHYSICAL EXAMINATION: GENERAL: Well-appearing, well-nourished and in no acute distress. HEAD: Atraumatic, normocephalic. EYES: Pupils equal round and reactive to light, extraocular movements intact, sclera anicteric, conjunctiva are normal. ENT: Nares patent, oropharynx clear without exudates. Moist mucous membranes. NECK: Normal range of motion, supple without lymphadenopathy LUNGS: Breath sounds clear to auscultation bilaterally and equal. No wheezes rales or rhonchi. HEART: Regular rate and rhythm without murmurs ABDOMEN: Soft, nontender, nondistended abdomen. No guarding, no rebound. No masses appreciated. Musculoskeletal: Tenderness of the left hip NEUROLOGICAL: Cranial nerves grossly intact. Normal speech, normal gait. Normal sensory, motor exams PSYCH: Normal mood, normal affect. SKIN: Dialysis patient Physical Exam - Vital signs Vitals: Temp Pulse Resp BP Pulse Ox 98.7 F 90 18 104/45 L 96 10/20/17 04:49 10/20/17 04:49 10/20/17 04:49 10/20/17 04:49 10/20/17 04:49 Course - Re-evaluation Re-evalutation: 10/20/17 06:41 Due to dialysis patient requests to be transferred to [place], awaiting lab work at this time 10/20/17 07:57 Patient accepted by Ortho, I stated that they should consult internal medicine for medical care as well - Vital Signs Vital signs: Temp Pulse Resp BP Pulse Ox 98.7 F 90 17 104/45 L 93 10/20/17 04:49 10/20/17 04:49 10/20/17 07:00 10/20/17 04:49 10/20/17 07:00 - Laboratory Result Diagrams: 10/20/17 06:30 10/20/17 06:30 Laboratory results interpreted by me: 10/20/17 10/20/17 06:30 06:30 RBC 3.69 L Hgb 11.1 L Hct 33.7 L RDW 19.1 H Monocytes % (Manual) 19 H Sodium 132.6 L Chloride 95 L BUN 21 H Creatinine 4.26 H Est GFR ( Amer) 18 L Est GFR (Non-Af Amer) 15 L Total Bilirubin 1.8 H Direct Bilirubin 1.0 H Alkaline Phosphatase 275 H Albumin 2.8 L - Diagnostic Test Radiology reviewed: Image reviewed, Reports reviewed Discharge - Discharge Clinical Impression: CKD (chronic kidney disease) requiring chronic dialysis Subcapital fracture of left femur Qualifiers: Encounter type: initial encounter Fracture type: closed Qualified Code(s): S72.012A - Unspecified intracapsular fracture of left femur, initial encounter for closed fracture Condition: Stable Disposition: [facility]
[2017-10-20 06:59] LABS: ALANINE AMINOTRANSFERASE 27 U/L (21-72); ALBUMIN 2.8 g/dL (3.5-5.0); ALKALINE PHOSPHATASE 275 U/L (38-126); ANION GAP 9 (5-19); ASPARTATE AMINO TRANSFERASE 32 U/L (17-59); BILIRUBIN,TOTAL 1.8 mg/dL (0.2-1.3); BLOOD UREA NITROGEN 21 mg/dL (7-20); CALCIUM 8.6 mg/dL (8.4-10.2); CARBON DIOXIDE 29 mmol/L (22-30); CHLORIDE 95 mmol/L (98-107); GLUCOSE 79 mg/dL (75-110); POTASSIUM 4.1 mmol/L (3.6-5.0); SODIUM 132.6 mmol/L (137-145); TOTAL PROTEIN 6.6 g/dL (6.3-8.2)
[2017-10-20 07:06] LABS: HEMATOCRIT 33.7 % (37.9-51.0); HEMOGLOBIN 11.1 g/dL (13.5-17.0); MEAN CORPUSCULAR HEMOGLOBIN 30.1 pg (27.0-33.4); MEAN CORPUSCULAR HGB CONC 32.9 g/dL (32.0-36.0); MEAN CORPUSCULAR VOLUME 91 fl (80-97); PLATELET COUNT 161 10^3/uL (150-450); RED BLOOD COUNT 3.69 10^6/uL (4.35-5.55); RED CELL DISTRIBUTION WIDTH 19.1 % (11.5-14.0); WHITE BLOOD COUNT 4.1 10^3/uL (4.0-10.5)
[2017-10-20 07:25] LABS: ABSOLUTE LYMPHOCYTES# (MANUAL) 0.7 10^3/uL (0.5-4.7); ABSOLUTE MONOCYTES # (MANUAL) 0.8 10^3/uL (0.1-1.4); ABSOLUTE NEUTROPHILS# (MANUAL) 2.5 10^3/uL (1.7-8.2); BASOPHILS % (MANUAL) 2 % (0-2); EOSINOPHILS % (MANUAL) 0 % (0-6); LYMPHOCYTES % (MANUAL) 17 % (13-45); MONOCYTES % (MANUAL) 19 % (3-13); SEGMENTED NEUTROPHILS % (MAN) 62 % (42-78); TOTAL CELLS COUNTED 100
[2017-10-20 07:27] LABS: ANISOCYTOSIS 2+; BURR CELLS SLIGHT; OVALOCYTES SLIGHT; POIKILOCYTOSIS 1+; SCHISTOCYTES SLIGHT; TOXIC GRANULATION 2+
[2017-10-20 07:28] LABS: PLATELET COMMENT ADEQUATE; TEAR DROP CELLS SLIGHT
--- NOTE | 2017-10-20 07:40 | EKG REPORT ---
SEVERITY:- ABNORMAL ECG - SINUS RHYTHM CONSIDER ANTEROSEPTAL INFARCT MINIMAL ST DEPRESSION, ANTEROLATERAL LEADS BORDERLINE PROLONGED QT INTERVAL : Confirmed by: Lindsey Magallon MD 20-Oct-2017 07:39:04
--- NOTE | 2017-10-20 07:46 | RADIOLOGY REPORT (SQ) ---
EXAM DESCRIPTION: CHEST SINGLE VIEW CLINICAL HISTORY: pre op COMPARISON: 03/23/2017 FINDINGS: Single frontal view of the chest. The cardiomediastinal silhouette has normal size and contour. No pneumothorax. Linear left mid and lower lung airspace opacities may be related to scar or atelectasis. No displaced rib fractures identified. Upper abdominal soft tissues are unremarkable. IMPRESSION: 1. Linear left mid and lower lung airspace opacities may be related to scarring or atelectasis.
[2017-10-20 14:44] VITALS: BP 96/41
== END 2017-10-20 14:55 | disposition short-term general hospital (02) ==
LOC: ER 04:41
DX: S72.012A Unspecified intracapsular fracture of left femur, initial encounter for closed fracture (principal); N18.6 End stage renal disease; M79.1 Myalgia; W18.30XA Fall on same level, unspecified, initial encounter; Z99.2 Dependence on renal dialysis; Z88.0 Allergy status to penicillin
CPT/HCPCS: 93005; 96376; 99285; 96374; 36415; 85025; 80053; 71045; 73502; 93010; J1170

== ENCOUNTER 2017-11-20 10:50 | Day surgery (SDC) | payer MEDICAID ==
[2017-11-20 11:23] LABS: HEMATOCRIT 29.8 % (37.9-51.0); HEMOGLOBIN 9.8 g/dL (13.5-17.0); MEAN CORPUSCULAR HEMOGLOBIN 29.9 pg (27.0-33.4); MEAN CORPUSCULAR HGB CONC 32.8 g/dL (32.0-36.0); MEAN CORPUSCULAR VOLUME 91 fl (80-97); PLATELET COUNT 157 10^3/uL (150-450); RED BLOOD COUNT 3.27 10^6/uL (4.35-5.55); WHITE BLOOD COUNT 4.1 10^3/uL (4.0-10.5)
[2017-11-20 11:37] LABS: INTERNATIONAL RATION (INR) 1.17; PROTHROMBIN TIME 15.7 SEC (11.4-15.4)
[2017-11-20 11:38] LABS: PARTIAL THROMBOPLASTIN TIME 36.5 SEC (23.5-35.8)
[2017-11-20 11:40] LABS: BLOOD UREA NITROGEN 24 mg/dL (7-20)
[2017-11-20 14:37] VITALS: BP 112/48
--- NOTE | 2017-11-20 17:04 | RADIOLOGY REPORT (SQ) ---
EXAM DESCRIPTION: U/S ABD PARACENTESIS COMPLETED DATE/TIME: 11/20/2017 1:41 pm REASON FOR STUDY: ASCITES COMPARISON Multiple previous LIMITATIONS: None. PROCEDURE: After obtaining informed consent, the patient was brought to the ultrasound suite. The p rocedure was performed with the patient on a gurney. Ultrasound was used to identify a prominent poc ket of ascites in the right lower quadrant. An appropriate access site was selected. The patient wa s prepped and draped in usual sterile fashion. The access site was anesthetized with 8 mL 1% lidoca ine. A Mhnn-B-Kavdmasx needle was advanced into the fluid. After aspiration of fluid the needle, th e catheter was advanced off the needle into the fluid. A total of 2,700 mL of milky white fluid was removed. The patient tolerated the procedure well left the department in satisfactory condition. IMPRESSION: Successful ultrasound-guided paracentesis COMMENT: Patient medication list reviewed: Yes- Quality ID# [id number]:Eligible professional attests to doc umenting in the medical record they obtained, updated, or reviewed the patient's current medications. Quality ID #[id number]: The patient was prepped and draped using maximum sterile barrier technique including cap, mask, sterile gown, sterile gloves, a large sterile sheet, hand hygiene, and 2% Chlorhexidine fo r cutaneous antisepsis. When ultrasound is used, sterile ultrasound techniques are followed requiring sterile gel and sterile probes. Quality ID #[id number]: Final reports for procedures using fluoroscopy that document radiation exposure jeanie dylan, or exposure time and number of fluorographic images (if radiation exposure indices are not avail able) TECHNICAL DOCUMENTATION: JOB ID: [id number] [email or web address]- All Rights Reserved Reading location - IP/workstation name: [facility]
== END 2017-11-20 14:20 | disposition home or self-care (01) ==
LOC: RAD 10:50
PROVIDERS: ATTEND Internal Medicine Gastroenterology
PROC: 0W9G3ZZ Drainage of Peritoneal Cavity, Percutaneous Approach (ICD-10-PCS; principal; 2017-11-20)
DX: K74.60 Unspecified cirrhosis of liver (principal); R18.8 Other ascites; N18.6 End stage renal disease; Z88.0 Allergy status to penicillin
CPT/HCPCS: 36415; 49083; 82565; 84520; 85027; 85610; 85730

== ENCOUNTER 2017-12-10 21:31 | Emergency (ER) | payer MEDICAID ==
--- NOTE | 2017-12-10 22:39 | ER Document Report ---
ED Fever - General Chief Complaint: Fever Stated Complaint: FEVER Time Seen by Provider: 12/10/17 22:02 Mode of Arrival: Medic Information source: Patient, Relative Notes: Patient presents complaining of fever today of 101. Patient is currently a resident at [facility]. Patient reports nausea and vomiting 1 episode yesterday without any emesis today. Patient denies any diarrhea. Patient does report chronic cough but attributes this to his history of ascites. Patient is due to have a paracentesis in 3 days. Patient denies any abdominal tenderness or back pain. TRAVEL OUTSIDE OF THE [place] IN LAST 30 DAYS: No - HPI Onset: This evening Onset/Duration: Gradual Quality of pain: No pain Context: Cancer, Cough, Nausea/vomiting - 1 episode yesterday. denies: Chemotherapy, Congestion, Diarrhea, Urinary tract infection Associated symptoms: Nonproductive cough, Fever, Vomiting. denies: Body/muscle aches, Chest pain, Productive cough, Diarrhea, Headache, Rhinnorhea, Shortness of breath, Sore throat, Weakness Similar symptoms previously: Yes Recently seen / treated by doctor: No - Related Data Allergies/Adverse Reactions: povidone-iodine [From Betadine] Allergy (Verified 11/20/17 11:18) soap [From Betadine] Allergy (Verified 11/20/17 11:18) Penicillins Adverse Reaction (Verified 11/20/17 11:18) "some kind of dialysis filter" Allergy (Uncoded 11/20/17 11:18) Past Medical History - General Information source: Patient, Relative - Social History Smoking Status: Never Smoker Frequency of alcohol use: Former Drug Abuse: None Occupation: None Lives with: [employer] Family History: CAD, DM, Malignancy - Medical History Medical History: Other - Pancytopenia - Past Medical History Cardiac Medical History: Reports: Hx Heart Murmur, Other - Aortic stenosis Denies: Hx Coronary Artery Disease, Hx Heart Attack, Hx Hypertension Pulmonary Medical History: Reports: Hx Asthma - A CHILD, Hx Pneumonia - 2015 Denies: Hx Bronchitis, Hx COPD Neurological Medical History: Denies: Hx Cerebrovascular Accident, Hx Seizures Renal/ Medical History: Reports: Hx End Stage Renal Disease, Hx Hemodialysis. Denies: Hx Peritoneal Dialysis Malignancy Medical History: Reports Other - Rectal cancer GI Medical History: Reports: Hx Cirrhosis, Hx Liver Failure Musculoskeltal Medical History: Reports Hx Arthritis Past Surgical History: Reports: Hx Herniorrhaphy - Umbilical herniorrhaphy, right inguinal herniorrhaphy, Hx Vascular Surgery - left fistula - Immunizations Hx Diphtheria, Pertussis, Tetanus Vaccination: Yes Hx Pneumococcal Vaccination: 05/26/16 Review of Systems - Review of Systems Constitutional: Fever. denies: Recent illness EENT: No symptoms reported Cardiovascular: No symptoms reported. denies: Chest pain Respiratory: Cough. denies: Short of breath Gastrointestinal: Vomiting - 31. denies: Abdominal pain, Nausea, Constipation Genitourinary: No symptoms reported Male Genitourinary: No symptoms reported Musculoskeletal: No symptoms reported. denies: Back pain Skin: No symptoms reported Hematologic/Lymphatic: No symptoms reported Neurological/Psychological: No symptoms reported Physical Exam - Vital signs Vitals: Temp Pulse Resp BP Pulse Ox 99.8 F 111 H 16 120/49 L 94 12/10/17 21:43 12/10/17 21:43 12/10/17 21:43 12/10/17 21:43 12/10/17 21:43 - General General appearance: Appears well, Alert In distress: None - HEENT Head: Normocephalic, Atraumatic Eyes: Normal Nasal: Normal Mouth/Lips: Normal Mucous membranes: Dry Pharynx: Normal Neck: Normal, Supple. No: Lymphadenopathy - Respiratory Respiratory status: No respiratory distress Breath sounds: Nonproductive cough Chest palpation: Normal - Cardiovascular Rhythm: Tachycardia Heart sounds: S1 appreciated, S2 appreciated Murmur: No - Abdominal Inspection: Obese Distension: No distension Bowel sounds: Normal Tenderness: Nontender - Back Back: Normal, Nontender. No: CVA tenderness - Neurological Neuro grossly intact: Yes Cognition: Normal [place] Coma Scale Eye Opening: Spontaneous [place] Coma Scale Verbal: Oriented [place] Coma Scale Motor: Obeys Commands [place] Coma Scale Total: 15 - Psychological Associated symptoms: Normal affect, Normal mood - Skin Skin Temperature: Warm Skin Moisture: Dry Skin Color: Pale Skin irregularity: other - stage 2 skin breakdown to scrotum and sacral area Course - Re-evaluation Re-evalutation: 12/11/17 01:[address] myers regarding pt presentation and diagnostic evaluation, reviewed cxr. Advises awaiting radiology report. Patient's diagnostic evaluation otherwise consistent with his usual presentation, patient does have chronic renal failure as well as liver failure and a history of pancytopenia. 12/11/17 01:53 Reviewed patient's chest x-ray report. Consulted with Dr. Myers regarding patient presentation, recommends treatment with Levaquin orally and may give IV fluid bolus of 250 mL's. Does not feel that patient warrants admission at this time. Will plan to treat patient with an antibiotic for likely left lower lobe pneumonia given his tachycardia, reported fever and chest x-ray finding. No concern for sepsis at this time. Patient and family verbalized understanding and agreement with treatment plan. Patient does have an appointment with oncology tomorrow for recheck. Patient encouraged to try to keep this appointment. 12/11/17 05:17 pt with fever, HR 120, bp stable. Patient refuses to take blanket off. Patient with both renal failure and liver failure. Consulted with Dr myers regarding fever management given medical hx. Will give Tylenol to treat his temperature. Will give a repeat IV fluid bolus. Patient's respirations unlabored. 12/11/17 06:26 Patient continues tachycardic with heart rate 120s, blood pressure continues stable 100/50s. Consulted with Dr. Bourne who is on-call for Dr. Felton who agrees to accept patient as telemetry observation admission under dr felton services 12/11/17 07:09 Handoff given to Kimberlyn BUSTILLO - Vital Signs Vital signs: Temp Pulse Resp BP Pulse Ox 99.9 F 111 H 19 100/59 L 96 12/11/17 06:57 12/10/17 21:43 12/11/17 06:06 12/11/17 06:06 12/11/17 06:06 - Laboratory Result Diagrams: 12/10/17 23:31 12/10/17 23:31 Laboratory results interpreted by me: 12/10/17 12/10/17 12/10/17 23:31 23:31 23:31 WBC 2.9 L RBC 3.78 L Hgb 10.8 L Hct 33.2 L RDW 17.9 H Lymphocytes % (Manual) 8 L Monocytes % (Manual) 23 H Abs Lymphs (Manual) 0.2 L VBG pH 7.44 H Sodium 126.3 L Chloride 93 L BUN 31 H Creatinine 4.54 H Est GFR ( Amer) 16 L Est GFR (Non-Af Amer) 14 L Calcium 8.1 L Total Bilirubin 1.9 H Direct Bilirubin 1.5 H Alkaline Phosphatase 192 H Albumin 2.6 L Labs- Entire Visit 12/10/17 12/10/17 12/10/17 23:31 23:31 23:31 WBC 2.9 L RBC 3.78 L Hgb 10.8 L Hct 33.2 L MCV 88 MCH 28.6 MCHC 32.5 RDW 17.9 H Plt Count 156 Total Counted 100 Seg Neutrophils % Not Reportable Seg Neuts % (Manual) 67 Lymphocytes % Not Reportable Lymphocytes % (Manual) 8 L Monocytes % Not Reportable Monocytes % (Manual) 23 H Eosinophils % Not Reportable Eosinophils % (Manual) 0 Basophils % Not Reportable Basophils % (Manual) 2 Absolute Neutrophils Not Reportable Abs Neuts (Manual) 1.9 Absolute Lymphocytes Not Reportable Abs Lymphs (Manual) 0.2 L Absolute Monocytes Not Reportable Abs Monocytes (Manual) 0.7 Absolute Eosinophils Not Reportable Absolute Eos (Manual) 0.0 Absolute Basophils Not Reportable Abs Basophils (Manual) 0.1 Toxic Granulation 2+ Large Platelets PRESENT Giant Platelets PRESENT Platelet Comment ADEQUATE Poikilocytosis SLIGHT Anisocytosis 1+ Tear Drop Cells SLIGHT Ovalocytes SLIGHT Schistocytes 1+ PT 14.7 INR 1.07 VBG pH VBG pCO2 VBG HCO3 VBG Base Excess Sodium 126.3 L Potassium 4.4 Chloride 93 L Carbon Dioxide 22 Anion Gap 11 BUN 31 H Creatinine 4.54 H Est GFR ( Amer) 16 L Est GFR (Non-Af Amer) 14 L Glucose 79 Lactic Acid Calcium 8.1 L Total Bilirubin 1.9 H Direct Bilirubin 1.5 H Neonat Total Bilirubin Not Reportable Neonat Direct Bilirubin Not Reportable Neonat Indirect Bili Not Reportable AST 34 ALT 26 Alkaline Phosphatase 192 H Ammonia Total Protein 6.9 Albumin 2.6 L 12/10/17 12/10/17 12/10/17 23:31 23:31 23:31 WBC RBC Hgb Hct MCV MCH MCHC RDW Plt Count Total Counted Seg Neutrophils % Seg Neuts % (Manual) Lymphocytes % Lymphocytes % (Manual) Monocytes % Monocytes % (Manual) Eosinophils % Eosinophils % (Manual) Basophils % Basophils % (Manual) Absolute Neutrophils Abs Neuts (Manual) Absolute Lymphocytes Abs Lymphs (Manual) Absolute Monocytes Abs Monocytes (Manual) Absolute Eosinophils Absolute Eos (Manual) Absolute Basophils Abs Basophils (Manual) Toxic Granulation Large Platelets Giant Platelets Platelet Comment Poikilocytosis Anisocytosis Tear Drop Cells Ovalocytes Schistocytes PT INR VBG pH 7.44 H VBG pCO2 40.2 VBG HCO3 26.9 VBG Base Excess 2.7 Sodium Potassium Chloride Carbon Dioxide Anion Gap BUN Creatinine Est GFR ( Amer) Est GFR (Non-Af Amer) Glucose Lactic Acid 1.9 Calcium Total Bilirubin Direct Bilirubin Neonat Total Bilirubin Neonat Direct Bilirubin Neonat Indirect Bili AST ALT Alkaline Phosphatase Ammonia 26.8 Total Protein Albumin - Diagnostic Test Radiology reviewed: Image reviewed, Reports reviewed Discharge - Discharge Clinical Impression: Hx of renal failure, History of pancytopenia Left lower lobe pneumonia Qualifiers: Pneumonia type: due to unspecified organism Qualified Code(s): J18.1 - Lobar pneumonia, unspecified organism Condition: Fair Disposition: ADMITTED OBSERVATION Admitting Provider: Felton Unit Admitted: Telemetry
[2017-12-10 23:52] LABS: VENOUS BLOOD BASE EXCESS 2.7 mmol/L; VENOUS BLOOD HCO3 26.9 mmol/L (20-32); VENOUS BLOOD PCO2 40.2 mmHg (35-63); VENOUS BLOOD PH 7.44 (7.30-7.42)
[2017-12-10 23:58] LABS: INTERNATIONAL RATION (INR) 1.07; PROTHROMBIN TIME 14.7 SEC (11.4-15.4)
[2017-12-10 23:59] LABS: HEMATOCRIT 33.2 % (37.9-51.0); HEMOGLOBIN 10.8 g/dL (13.5-17.0); MEAN CORPUSCULAR HEMOGLOBIN 28.6 pg (27.0-33.4); MEAN CORPUSCULAR HGB CONC 32.5 g/dL (32.0-36.0); MEAN CORPUSCULAR VOLUME 88 fl (80-97); PLATELET COUNT 156 10^3/uL (150-450); RED BLOOD COUNT 3.78 10^6/uL (4.35-5.55); RED CELL DISTRIBUTION WIDTH 17.9 % (11.5-14.0); WHITE BLOOD COUNT 2.9 10^3/uL (4.0-10.5)
[2017-12-11 00:08] LABS: ALANINE AMINOTRANSFERASE 26 U/L (21-72); ALBUMIN 2.6 g/dL (3.5-5.0); ALKALINE PHOSPHATASE 192 U/L (38-126); ANION GAP 11 (5-19); ASPARTATE AMINO TRANSFERASE 34 U/L (17-59); BILIRUBIN,DIRECT 1.5 mg/dL (0.0-0.4); BILIRUBIN,TOTAL 1.9 mg/dL (0.2-1.3); BLOOD UREA NITROGEN 31 mg/dL (7-20); CALCIUM 8.1 mg/dL (8.4-10.2); CARBON DIOXIDE 22 mmol/L (22-30); CHLORIDE 93 mmol/L (98-107); GLUCOSE 79 mg/dL (75-110); POTASSIUM 4.4 mmol/L (3.6-5.0); SODIUM 126.3 mmol/L (137-145); TOTAL PROTEIN 6.9 g/dL (6.3-8.2)
[2017-12-11 00:34] LABS: ABSOLUTE LYMPHOCYTES# (MANUAL) 0.2 10^3/uL (0.5-4.7); ABSOLUTE MONOCYTES # (MANUAL) 0.7 10^3/uL (0.1-1.4); ABSOLUTE NEUTROPHILS# (MANUAL) 1.9 10^3/uL (1.7-8.2); BASOPHILS % (MANUAL) 2 % (0-2); EOSINOPHILS % (MANUAL) 0 % (0-6); LYMPHOCYTES % (MANUAL) 8 % (13-45); MONOCYTES % (MANUAL) 23 % (3-13); SEGMENTED NEUTROPHILS % (MAN) 67 % (42-78); TOTAL CELLS COUNTED 100
[2017-12-11 00:36] LABS: ANISOCYTOSIS 1+; OVALOCYTES SLIGHT; PLATELET COMMENT ADEQUATE; PLATELET GIANT PRESENT; PLATELET LARGE PRESENT; POIKILOCYTOSIS SLIGHT; SCHISTOCYTES 1+; TEAR DROP CELLS SLIGHT; TOXIC GRANULATION 2+
--- NOTE | 2017-12-11 01:31 | RADIOLOGY REPORT (SQ) ---
EXAM DESCRIPTION: CHEST PA/LAT CLINICAL HISTORY: 52 years, Male, fever COMPARISON: 10/20/2017 NUMBER OF VIEWS: Two LIMITATIONS: Semiupright rotated FINDINGS: Moderate opacity-layered effusion, moderate-low aeration of the left lung , normal cardiac silhouette, and mild osteoarthritis. IMPRESSION: Moderate left lower lobar pneumonia, atelectasis, and/or effusion.
[2017-12-11] MEDS ORDERED: NORMAL SALINE 250 ML IV ONE ×2 (01:38→05:14)
[2017-12-11] MEDS ORDERED: LEVOFLOXACIN 750 MG TABLET PO ONE (01:43)
[2017-12-11] MEDS ORDERED: ACETAMINOPHEN 325 MG TABLET PO ONE (05:13)
--- NOTE | 2017-12-11 06:03 | EKG REPORT ---
SEVERITY:- ABNORMAL ECG - SINUS TACHYCARDIA BORDERLINE LEFT AXIS DEVIATION CONSIDER OLD ANTEROSEPTAL CT : Confirmed by: Dionte Garg MD 11-Dec-2017 06:02:42
[2017-12-11] MEDS ORDERED: VANCOMYCIN HCL INJ 1000 MG VIAL IV ONE (10:06)
[2017-12-11] MEDS ORDERED: CEFEPIME 1 GM/D5W RTU 1 GM/50 ML RTUPB IV ONE (10:08)
--- NOTE | 2017-12-11 11:18 | PDOC H&P ---
History of Present Illness Admission Date/PCP: 12/11/17 06:43 MILADY TOURE MD Patient complains of: Fever History of Present Illness: ANITA HASTINGS JR is a 52 year old male This is a 52-year-old male's with a significant history of the end-stage renal disease on hemodialysis history of cirrhosis of the liver and also recently history of the hip fracture on the left side and currently living a coronary well retirement came to the emergency department with a complaint of fever 101 and patient was diagnosed with the lobar pneumonia start the patient on Levaquin Patients at this point to the ER physicians call and admit but when the patient' s signs of fluid in the ER patient was labored tachycardic but other than that no other symptoms unfortunately patient's sodium is 126 and patient scheduled for the dialysis tomorrow and I do not think some patients can be discharged as early tomorrow and patients require dialysis which I looked for the nephrology locally here and is not available to dialyze the patient in the morning and at this point the patient should go back to the with the patient have a nephrology over there and other physicians order Diane talked to the ER doctor and facilitate the patient's transferred back to the ER to ER I discussed with the nurse taking care of the patient's to give her 1 dose of the Rocephin injections and continues to all home at and discussed with the patient and the sister in the room and informed the patient's sister about the transferring Patient's denied any chest pain denied any abdominal pain no nausea no vomiting Past Medical History Cardiac Medical History: Reports: Heart Murmur, Other - Aortic stenosis Denies: Coronary Artery Disease, Myocardial Infarction, Hypertension Cardiac History Note: Aortic wall disorder Pulmonary Medical History: Reports: Asthma - A CHILD, Pneumonia - 05/2016 Denies: Bronchitis, Chronic Obstructive Pulmonary Disease (COPD) Neurological Medical History: Denies: Seizures Renal/ Medical History: Reports: End Stage Renal Disease Malignancy Medical History: Reports: Other - Rectal cancer GI Medical History: Reports: Cirrhosis Musculoskeltal Medical History: Reports: Arthritis Hematology: Denies: Anemia Past Surgical History Past Surgical History: Reports: Herniorrhaphy - Umbilical herniorrhaphy, right inguinal herniorrhaphy, Vascular Surgery - left fistula Social History Lives with: Custodial Smoking Status: Never Smoker Frequency of Alcohol Use: Heavy Hx Recreational Drug Use: No Drugs: None Hx Prescription Drug Abuse: No Family History Family History: CAD, DM, Malignancy Parental Family History Reviewed: Yes Children Family History Reviewed: Yes Sibling(s) Family History Reviewed.: Yes Medication/Allergy Home Medications: Gabapentin [Neurontin 300 mg Capsule] 300 mg PO Q12 03/22/17 Lactulose [Kristalose 20 gm Packet] 30 gm PO BID 03/22/17 Midodrine HCl [Proamatine 5 mg Tablet] 10 mg PO .ASDIR PRN 03/22/17 Pantoprazole Sodium [Protonix] 40 mg PO DAILY 03/22/17 Rifaximin [Xifaxan 200 mg Tablet] 550 mg PO Q12 03/22/17 Sevelamer HCl [Renagel] 1,600 mg PO MEALS 03/22/17 Cetirizine HCl [All Day Allergy] 5 mg PO DAILY 05/05/17 Ergocalciferol (Vitamin D2) [Vitamin D2] 50,000 unit PO DAILY 06/02/17 Cephalexin Monohydrate [Keflex 500 mg Capsule] 500 mg PO BID 11/20/17 Midodrine HCl 10 mg PO QID 11/20/17 Mv-Min/Folic/Vit K/Lycop/Coq10 [Daily Multivitamin Capsule] 1 tab PO DAILY 11/20 Ondansetron HCl [Zofran] 4 mg PO Q4 PRN 11/20/17 Sodium Polystyrene Sulfon/Sorb [Kionex 15 gm/60 ml Suspension] 60 ml PO ONCE PRN 11/20/17 Tramadol HCl 50 mg PO Q6 PRN 11/20/17 Allergies/Adverse Reactions: povidone-iodine [From Betadine] Allergy (Verified 11/20/17 11:18) soap [From Betadine] Allergy (Verified 11/20/17 11:18) Penicillins Adverse Reaction (Verified 11/20/17 11:18) "some kind of dialysis filter" Allergy (Uncoded 11/20/17 11:18) Review of Systems Constitutional: PRESENT: fever(s). ABSENT: chills, headache(s), weight gain, weight loss Eyes: ABSENT: visual disturbances Ears: ABSENT: hearing changes Cardiovascular: ABSENT: chest pain, dyspnea on exertion, edema, orthropnea, palpitations Respiratory: ABSENT: cough, hemoptysis Gastrointestinal: ABSENT: abdominal pain, constipation, diarrhea, hematemesis, hematochezia, nausea, vomiting Genitourinary: ABSENT: dysuria, hematuria Musculoskeletal: ABSENT: joint swelling Integumentary: ABSENT: rash, wounds Neurological: ABSENT: abnormal gait, abnormal speech, confusion, dizziness, focal weakness, syncope Psychiatric: ABSENT: anxiety, depression, homidical ideation, suicidal ideation Endocrine: ABSENT: cold intolerance, heat intolerance, menstrual abnormalities, polydipsia, polyuria Hematologic/Lymphatic: ABSENT: easy bleeding, easy bruising, lymphadenopathy Physical Exam Vital Signs: Temp Pulse Resp BP Pulse Ox 99.9 F 111 H 20 103/45 L 96 12/11/17 06:57 12/10/17 21:43 12/11/17 08:01 12/11/17 08:00 12/11/17 08:01 General appearance: PRESENT: no acute distress, well-developed, well-nourished Head exam: PRESENT: atraumatic, normocephalic Eye exam: PRESENT: conjunctiva pink, EOMI, PERRLA. ABSENT: scleral icterus Ear exam: PRESENT: normal external ear exam Mouth exam: PRESENT: moist, tongue midline Neck exam: PRESENT: full ROM. ABSENT: carotid bruit, JVD, lymphadenopathy, thyromegaly Respiratory exam: PRESENT: clear to auscultation benoit Cardiovascular exam: PRESENT: RRR. ABSENT: diastolic murmur, rubs, systolic murmur Pulses: PRESENT: normal dorsalis pedis pul, +2 pedal pulses bilateral Vascular exam: PRESENT: normal capillary refill GI/Abdominal exam: PRESENT: ascites, normal bowel sounds, soft. ABSENT: distended, guarding, mass, organolmegaly, rebound, tenderness Rectal exam: PRESENT: deferred Extremities exam: ABSENT: pedal edema Neurological exam: PRESENT: alert, awake, oriented to person, oriented to place , oriented to time, oriented to situation. ABSENT: motor sensory deficit Psychiatric exam: PRESENT: appropriate affect, normal mood. ABSENT: homicidal ideation, suicidal ideation Skin exam: PRESENT: dry, intact, warm. ABSENT: cyanosis, rash Results Impressions: Chest X-Ray 12/10/17 22:35 IMPRESSION: Moderate left lower lobar pneumonia, atelectasis, and/or effusion. Assessment & Plan - Diagnosis (1) Left lower lobe pneumonia Qualifiers: Pneumonia type: due to unspecified organism Qualified Code(s): J18.1 - Lobar pneumonia, unspecified organism Is this a current diagnosis for this admission?: Yes Plan: Start the patient on Rocephin and LevaquinPatients may be need a vancomycin's dialysis (2) History of pancytopenia Is this a current diagnosis for this admission?: Yes Plan: She was recently diagnosed with a rectal cancer and seen by the several oncology and patient scheduled to see an oncology and more head CT today Patient's pancytopenia through the most likely liver disease (3) Hx of renal failure Is this a current diagnosis for this admission?: Yes Plan: Currently on hemodialysis (4) Hepatic failure due to alcoholism Is this a current diagnosis for this admission?: Yes (5) Hyponatremia Is this a current diagnosis for this admission?: Yes - Time Time Spent: 50 to 70 Minutes Medications reviewed and adjusted accordingly: Yes Anticipated discharge: Tertiary Hospital Within: Other - Inpatient Certification Medical Necessity: Need Close Monitoring Due to Risk of Patient Decompensation, Need for IV Antibiotics Post Hospital Care: D/C Fireboat [employer] Documentation - Plan Summary Plan Summary: At this time patient seen in the ER discussed with the nursing staff taking care of the patient start the patient on Rocephin and Levaquin and patients at this point's are transferred to the tertiary centers because of the nephrology service available
[2017-12-11 12:06] VITALS: BP 100/48
== END 2017-12-11 12:40 | disposition short-term general hospital (02) ==
LOC: ER 21:31 → UNDOADMOB 12-11 06:43 → EH 12-11 06:43 → ER 12-11 12:40 → UNDODISOB 12-11 12:40
DX: J18.1 Lobar pneumonia, unspecified organism (principal); K70.40 Alcoholic hepatic failure without coma; E87.1 Hypo-osmolality and hyponatremia; R50.9 Fever, unspecified; R11.2 Nausea with vomiting, unspecified; N18.6 End stage renal disease; Z99.2 Dependence on renal dialysis; E66.9 Obesity, unspecified; C20 Malignant neoplasm of rectum
CPT/HCPCS: 93005; 99285; 96360; 96361; 36415; 87040; 82140; 85025; 85610; 87077; 80053; 82803; 83605; 71046; 93010; J3490 ×2; J7050; J0692; J3370

== ENCOUNTER 2017-12-22 21:57 | Emergency (ER) | payer MEDICAID ==
[2017-12-22] MEDS ORDERED: FENTANYL CITRATE INJ/PF 100 MCG/2 ML AMPUL IV ONE (22:36)
--- NOTE | 2017-12-22 22:46 | ER Document Report ---
ED General - General Chief Complaint: Abdominal Pain Stated Complaint: ABDOMINAL PAIN Time Seen by Provider: 12/22/17 22:02 Notes: Patient is 52-year-old male presents with complaint of abdominal pain. Some abdominal pain is been ongoing for over 24 hours. No vomiting. No diarrhea. No fevers. Does a history of liver failure with ascites. This is chronic. He does have history of chronic renal failure. He last received dialysis yesterday. No difficulty breathing. He says he had missed some of his lactulose dosages a day ago. He started taking them today. Has not had a bowel movement today and feels that maybe he has backed up. No other complaints at this time. TRAVEL OUTSIDE OF THE [place] IN LAST 30 DAYS: No - Related Data Allergies/Adverse Reactions: povidone-iodine [From Betadine] Allergy (Verified 11/20/17 11:18) soap [From Betadine] Allergy (Verified 11/20/17 11:18) Penicillins Adverse Reaction (Verified 11/20/17 11:18) "some kind of dialysis filter" Allergy (Uncoded 11/20/17 11:18) Past Medical History - Social History Smoking Status: Never Smoker Frequency of alcohol use: None Drug Abuse: None Family History: CAD, DM, Malignancy - Past Medical History Cardiac Medical History: Reports: Hx Heart Murmur Denies: Hx Coronary Artery Disease, Hx Heart Attack, Hx Hypertension Pulmonary Medical History: Reports: Hx Asthma - A CHILD, Hx Pneumonia - 2015 Denies: Hx Bronchitis, Hx COPD Neurological Medical History: Denies: Hx Cerebrovascular Accident, Hx Seizures Renal/ Medical History: Reports: Hx End Stage Renal Disease, Hx Hemodialysis. Denies: Hx Peritoneal Dialysis GI Medical History: Reports: Hx Cirrhosis, Hx Liver Failure Musculoskeltal Medical History: Reports Hx Arthritis Past Surgical History: Reports: Hx Herniorrhaphy - Umbilical herniorrhaphy, right inguinal herniorrhaphy, Hx Vascular Surgery - left fistula - Immunizations Hx Diphtheria, Pertussis, Tetanus Vaccination: Yes Hx Pneumococcal Vaccination: 05/26/16 Review of Systems - Review of Systems Notes: My Normal Review Basic REVIEW OF SYSTEMS: CONSTITUTIONAL : Denies fever, chills, or sweats. Denies recent illness. EENT: Denies eye, ear, throat, or mouth pain or symptoms. Denies nasal or sinus congestion. CARDIOVASCULAR: Denies chest pain. RESPIRATORY: Denies cough, cold, or chest congestion. Denies shortness of breath, difficulty breathing, or wheezing. GASTROINTESTINAL: Generalized abdominal pain. No vomiting. MUSCULOSKELETAL: Denies neck or back pain or joint pain or swelling. SKIN: Denies rash or skin lesions. HEMATOLOGIC : Liver failure NEUROLOGICAL: Denies altered mental status or loss of consciousness. Denies headache. Denies weakness or paralysis or loss of use of either side. Denies problems with gait or speech. Denies sensory or motor loss. ALL OTHER SYSTEMS REVIEWED AND NEGATIVE. Physical Exam - Vital signs Vitals: Resp Pulse Ox 16 95 12/22/17 22:07 12/22/17 22:07 - Notes Notes: General Appearance: Well nourished, alert, cooperative, no acute distress, mild to moderate obvious discomfort. Vitals: reviewed, See vital signs table. Head: no swelling or tenderness to the head Eyes: PERRL, EOMI, Conjuctiva clear Mouth: No decreasd moisture Throat: No tonsillar inflammation, No airway obstruction, No lymphadenopathy Lungs: No wheezing, No rales, No rhonci, No accessory muscle use, good air exchange bilaterally. Heart: Normal rate, Regular rythm, No murmur, no rub Abdomen: soft, No rigidity, very mild left-sided abdominal tenderness to palpation., Abdomen is distended due to ascites. No guarding, no rebound, no abdominal masses, no organomegaly Extremities: strength 5/5 in all extremities, good pulses in all extremities, no swelling or tenderness in the extremities, no edema. Skin: warm, dry, appropriate color, no rash Neuro: speech clear, oriented x 3, normal affect, responds appropriately to questions. Course - Re-evaluation Re-evalutation: 12/23/17 05:14 Patient does have evidence of bowel obstruction. The CT scan is read as ileus versus small bowel obstruction. He also mentioned a lesion in abdomen which could be a mass or neoplasm or hematoma. I do not suspect a bleeding hematoma at this time. I did discuss this with Dr. Nobles, physician at [facility]. They also read as possible pneumonia. Patient recently was treated for pneumonia. He does not have any respiratory type symptoms and does not have a fever. I do not think he has a ongoing pneumonia at this time. Clinically the patient is consistent with small bowel obstruction. He is only able to tolerate about half the oral contrast. He has abdomen was more distended than his baseline. He has not had a bowel movement in several days. We therefore place an NG tube. We are transferring the patient because we will need treatment for the bowel obstruction also will require dialysis this morning as he is due for dialysis this morning. [facility] sent to dialysis on the weekends and we do not have any nephrology on-call and therefore cannot keep the patient here. I did discuss the case with Dr. Nobles [facility] agrees to accept the patient. Dictation of this chart was performed using voice recognition software; therefore, there may be some unintended grammatical errors. 12/23/17 05:16 - Vital Signs Vital signs: Temp Pulse Resp BP Pulse Ox 11 L 102/57 L 92 12/23/17 04:56 12/23/17 04:56 12/23/17 04:56 - Laboratory Result Diagrams: 12/23/17 01:20 12/22/17 21:43 Laboratory results interpreted by me: 12/22/17 12/23/17 21:43 01:20 RBC 3.07 L Hgb 8.8 L Hct 27.2 L RDW 19.5 H Lymphocytes % 9.6 L Monocytes % 15.7 H Absolute Lymphocytes 0.4 L Sodium 132.1 L BUN 21 H Creatinine 4.19 H Est GFR ( Amer) 18 L Est GFR (Non-Af Amer) 15 L Glucose 72 L Calcium 8.3 L Total Bilirubin 3.2 H Direct Bilirubin 1.7 H ALT 17 L Alkaline Phosphatase 143 H Total Protein 6.0 L Albumin 2.2 L Discharge - Discharge Clinical Impression: ESRD (end stage renal disease), Small bowel obstruction Abdominal pain Qualifiers: Abdominal location: unspecified location Qualified Code(s): R10.9 - Unspecified abdominal pain Vomiting Qualifiers: Vomiting type: unspecified Vomiting Intractability: unspecified Nausea presence : unspecified Qualified Code(s): R11.10 - Vomiting, unspecified Condition: Stable Disposition: [facility]
[2017-12-22 22:51] LABS: ALANINE AMINOTRANSFERASE 17 U/L (21-72); ALBUMIN 2.2 g/dL (3.5-5.0); ALKALINE PHOSPHATASE 143 U/L (38-126); ANION GAP 9 (5-19); ASPARTATE AMINO TRANSFERASE 25 U/L (17-59); BILIRUBIN,DIRECT 1.7 mg/dL (0.0-0.4); BILIRUBIN,TOTAL 3.2 mg/dL (0.2-1.3); BLOOD UREA NITROGEN 21 mg/dL (7-20); CALCIUM 8.3 mg/dL (8.4-10.2); CARBON DIOXIDE 25 mmol/L (22-30); CHLORIDE 98 mmol/L (98-107); GLUCOSE 72 mg/dL (75-110); POTASSIUM 4.9 mmol/L (3.6-5.0); SODIUM 132.1 mmol/L (137-145)
--- NOTE | 2017-12-22 23:50 | RADIOLOGY REPORT (SQ) ---
EXAM DESCRIPTION: ABDOMEN 2 VIEWS CLINICAL HISTORY: 52 years, Male, abdominal pain COMPARISON: 12/10/2017. NUMBER OF VIEWS: 3 LIMITATIONS: None. FINDINGS: No evidence of obstruction or perforation. Intestinal gas pattern within normal limits. No suspicious calcification. Small stable obscuration-effusion of the left costophrenic angle. A total hip arthroplasty. Mild vertebral height loss at the upper lumbar levels partially imaged. IMPRESSION: Acute intra-abdominal findings. Small left costophrenic obscuration-effusion.
[2017-12-23] MEDS ORDERED: ONDANSETRON HCL INJ/PF 4 MG/2 ML SDV IV ONE ×2 (00:53→04:19)
[2017-12-23] MEDS ORDERED: FENTANYL CITRATE INJ/PF 100 MCG/2 ML AMPUL IV ONE (01:12)
[2017-12-23 01:37] LABS: ABSOLUTE BASOPHILS # (AUTO) 0.1 10^3/uL (0.0-0.2); ABSOLUTE LYMPHOCYTES (AUTO) 0.4 10^3/uL (0.5-4.7); ABSOLUTE MONOCYTES (AUTO) 0.7 10^3/uL (0.1-1.4); ABSOLUTE NEUT (AUTO) 3.4 10^3/uL (1.7-8.2); BASOPHILS % (AUTO) 1.1 % (0-2); HEMATOCRIT 27.2 % (37.9-51.0); HEMOGLOBIN 8.8 g/dL (13.5-17.0); LYMPHOCYTES % (AUTO) 9.6 % (13-45); MEAN CORPUSCULAR HEMOGLOBIN 28.6 pg (27.0-33.4); MEAN CORPUSCULAR HGB CONC 32.4 g/dL (32.0-36.0); MEAN CORPUSCULAR VOLUME 89 fl (80-97); MONOCYTES % (AUTO) 15.7 % (3-13); RED BLOOD COUNT 3.07 10^6/uL (4.35-5.55); RED CELL DISTRIBUTION WIDTH 19.5 % (11.5-14.0); SEGMENTED NEUTROPHILS % (AUTO) 73.6 % (42-78); TOTAL CELLS COUNTED % (AUTO) 100 %; WHITE BLOOD COUNT 4.7 10^3/uL (4.0-10.5)
[2017-12-23] MEDS ORDERED: MORPHINE SULFATE 10 MG/ML INJ IV ONE (02:34)
--- NOTE | 2017-12-23 03:59 | RADIOLOGY REPORT (SQ) ---
EXAM DESCRIPTION: CT ABD/PELVIS ORAL ONLY CLINICAL HISTORY: 52 years Male, abdominal pain COMPARISON: 03.21.17, images only. TECHNIQUE: No IV contrast. Oral contrast only. Coronal and sagittal reformat. This exam was performed according to our departmental dose-optimization program, which includes automated exposure control, adjustment of the mA and/or kV according to patient size and/or use of iterative reconstruction technique. FINDINGS: Moderate left pleural effusion. Moderate left lower lobar consolidation. Dilation of jejunal bowel measuring up to 3.9 cm in diameter. Orally administered contrast is seen to level of the proximal ileum. 3.1 cm, 28 HU pleural-based ovoid lesion of the anterolateral left lower abdominal quadrant new compared with prior exam, 03/21/2017. Cholelithiasis. Moderate sized liver with mild macro nodularity, nonspecific. Moderate-large ascites. Stable multiple vertebral compression deformities compared with prior exam, 03/14/1717 include moderate compression deformities at L1 and L5. Left total hip arthroplasty. Moderate size kidneys. Mild bilateral perinephric fat stranding. Pancreas, spleen, adrenals, renal system, gastrointestinal tract, pelvic organs, lymphatics, vasculature, and musculoskeleton appear otherwise unremarkable. IMPRESSION: 1. Moderate left lower lobar pneumonia. 2. Small bowel ileus or low-grade obstruction. Jejunal bowel measures up to 3.9 cm in diameter. 3. New indeterminate 3.1 cm pleural-based mass of the left lower abdominal quadrant may indicate metastasis/neoplasm or hematoma. 4. Moderate to large chronic ascites. 5. Stable multiple vertebral compression deformities.
[2017-12-23 07:18] VITALS: BP 105/59
== END 2017-12-23 08:21 | disposition short-term general hospital (02) ==
LOC: ER 21:57
DX: N18.6 End stage renal disease (principal); K56.690 Other partial intestinal obstruction; R10.9 Unspecified abdominal pain; R11.10 Vomiting, unspecified; Z99.2 Dependence on renal dialysis; J45.909 Unspecified asthma, uncomplicated
CPT/HCPCS: 96376; 99285; 96374; 96375; 86900; 86901; 36415; 86850; 85025; 80053; 74019; 74176; J3010 ×2; J2270; J2405

== ENCOUNTER 2018-01-11 20:30 | Emergency (ER) | payer MEDICAID ==
[2018-01-11] MEDS ORDERED: NYSTATIN CREAM 15 GM TP ONE (21:16)
[2018-01-11] MEDS ORDERED: HYDROCORTISONE 1% CREAM 28.35 GM TP ONE (21:22)
[2018-01-11] MEDS ORDERED: ZINC OXIDE 20% OINTMENT 28.35 GM TP ONE (21:22)
--- NOTE | 2018-01-11 21:26 | ER Document Report ---
ED Skin Rash/Insect Bite/Abscs - General Chief Complaint: Rectal Pain Stated Complaint: RECTAL PAIN Time Seen by Provider: 01/11/18 20:58 Mode of Arrival: Stretcher Information source: Patient, Relative TRAVEL OUTSIDE OF THE [place] IN LAST 30 DAYS: No - HPI Patient complains to provider of: Skin rash/lesion Onset: Last week Onset/Duration: Persistent Quality of pain: Achy Severity: Mild Pain Level: 2 Skin Character: Rash Skin Temperature: Warm Quality of rash: Painful Notes: Patient is a 52-year-old male sent from [facility] for complaints of perirectal irritation and skin rash, patient has a history of cirrhosis of the liver, takes lactulose and has frequent loose bowel movements, states that he is developed a rash to his perirectal area over the past week which is painful and irritated, he denies any blood in his stools, no fevers, no vomiting, he is scheduled for a paracentesis as an outpatient tomorrow, and had 2 hours of dialysis this morning - Related Data Allergies/Adverse Reactions: povidone-iodine [From Betadine] Allergy (Verified 11/20/17 11:18) soap [From Betadine] Allergy (Verified 11/20/17 11:18) Penicillins Adverse Reaction (Verified 11/20/17 11:18) "some kind of dialysis filter" Allergy (Uncoded 11/20/17 11:18) Past Medical History - General Information source: Patient - Social History Smoking Status: Never Smoker Chew tobacco use (# tins/day): No Frequency of alcohol use: None Drug Abuse: None Family History: CAD, DM, Malignancy Patient has suicidal ideation: No Patient has homicidal ideation: No - Past Medical History Cardiac Medical History: Reports: Hx Heart Murmur Denies: Hx Coronary Artery Disease, Hx Heart Attack, Hx Hypertension Pulmonary Medical History: Reports: Hx Asthma - A CHILD, Hx Pneumonia - 2015 Denies: Hx Bronchitis, Hx COPD Neurological Medical History: Denies: Hx Cerebrovascular Accident, Hx Seizures Renal/ Medical History: Reports: Hx End Stage Renal Disease, Hx Hemodialysis. Denies: Hx Peritoneal Dialysis GI Medical History: Reports: Hx Cirrhosis, Hx Liver Failure Musculoskeltal Medical History: Reports Hx Arthritis Past Surgical History: Reports: Hx Herniorrhaphy - Umbilical herniorrhaphy, right inguinal herniorrhaphy, Hx Vascular Surgery - left fistula - Immunizations Hx Diphtheria, Pertussis, Tetanus Vaccination: Yes Hx Pneumococcal Vaccination: 05/26/16 Review of Systems - Review of Systems Constitutional: No symptoms reported EENT: No symptoms reported Cardiovascular: No symptoms reported Respiratory: No symptoms reported Gastrointestinal: No symptoms reported Genitourinary: No symptoms reported Male Genitourinary: No symptoms reported Musculoskeletal: No symptoms reported Skin: See HPI Hematologic/Lymphatic: No symptoms reported Neurological/Psychological: No symptoms reported -: Yes All other systems reviewed and negative Physical Exam - Vital signs Interpretation: Normal - General General appearance: Alert In distress: None - HEENT Head: Normocephalic, Atraumatic Eyes: Normal Pupils: PERRL - Respiratory Respiratory status: No respiratory distress Chest status: Nontender Breath sounds: Normal Chest palpation: Normal - Cardiovascular Rhythm: Regular Heart sounds: Normal auscultation Murmur: No - Abdominal Distension: Distended, Fluid wave Tenderness: Nontender - Rectal Notes: Erythematous friable skin to the perirectal area, mild tenderness on palpation, no active bleeding or weeping - Extremities General upper extremity: Normal inspection General lower extremity: Normal inspection - Neurological Orientation: AAOx4 Odilia Coma Scale Eye Opening: Spontaneous Odilia Coma Scale Verbal: Oriented [place] Coma Scale Motor: Obeys Commands Odilia Coma Scale Total: 15 - Psychological Associated symptoms: Normal affect, Normal mood - Skin Skin Temperature: Warm Course - Re-evaluation Re-evalutation: 01/12/18 00:45 Patient with perirectal rash likely secondary to multiple loose bowel movements from taking lactulose for history of liver cirrhosis, appendectomy Soledad cream was mixed up and placed on patient's perirectal area, he was given instructions for care of the area as well as instructions for follow-up and advised to return if symptoms worsen, patient and family member at bedside acknowledge understanding and agreement with this plan Discharge - Discharge Clinical Impression: Rash of perineum Condition: Stable Disposition: HOME, SELF-CARE Instructions: Diaper Rash ([facility]) Additional Instructions: Follow up with your primary care provider in one to 2 days. Return to the emergency room immediately if symptoms worsen or any additional concerns. Prescriptions: Miscellaneous Medication [Happy Hiney Cream] 1 applic TOP ASDIR PRN #[id number] PRN Reason: Referrals: MILADY TOURE MD [Primary Care Provider] - Follow up as needed
[2018-01-12 03:06] VITALS: BP 108/50
== END 2018-01-12 02:15 | disposition home or self-care (01) ==
LOC: ER 20:30
DX: R21 Rash and other nonspecific skin eruption (principal); K62.89 Other specified diseases of anus and rectum; N18.6 End stage renal disease; Z99.2 Dependence on renal dialysis; Z88.0 Allergy status to penicillin
CPT/HCPCS: 99284; J3490 ×3

== ENCOUNTER 2018-01-12 10:52 | Day surgery (SDC) | payer MEDICAID ==
[2018-01-12 11:39] LABS: HEMATOCRIT 30.6 % (37.9-51.0); HEMOGLOBIN 10.1 g/dL (13.5-17.0); MEAN CORPUSCULAR HEMOGLOBIN 29.9 pg (27.0-33.4); MEAN CORPUSCULAR VOLUME 91 fl (80-97); RED BLOOD COUNT 3.37 10^6/uL (4.35-5.55); RED CELL DISTRIBUTION WIDTH 24.1 % (11.5-14.0); WHITE BLOOD COUNT 6.4 10^3/uL (4.0-10.5)
[2018-01-12 11:42] LABS: INTERNATIONAL RATION (INR) 1.46; PROTHROMBIN TIME 18.5 SEC (11.4-15.4)
[2018-01-12 11:43] LABS: PARTIAL THROMBOPLASTIN TIME 39.4 SEC (23.5-35.8)
[2018-01-12 12:01] LABS: PLATELET COUNT 67 10^3/uL (150-450)
[2018-01-12 12:03] LABS: BLOOD UREA NITROGEN 32 mg/dL (7-20)
[2018-01-12] MEDS ORDERED: LIDOCAINE 1% INJ-PF (10 MG/ML) 30 ML SDV ONE (13:36)
--- NOTE | 2018-01-12 15:28 | RADIOLOGY REPORT (SQ) ---
EXAM DESCRIPTION: U/S ABD PARACENTESIS COMPLETED DATE/TIME: 01/12/2018 3:12 pm REASON FOR STUDY: ASCITES COMPARISON None. LIMITATIONS: None. PROCEDURE: After obtaining informed consent, the patient was brought to the ultrasound suite. The p rocedure was performed with the patient on a gurney. Ultrasound was used to identify a prominent poc ket of ascites in the right lower quadrant. An appropriate access site was selected. The patient wa s prepped and draped in usual sterile fashion. The access site was anesthetized with 10 mL 1% lidoc domenica. A [id number] needle was advanced into the fluid. After aspiration of fluid the needle, t he catheter was advanced off the needle into the fluid. A total of 3,300 mL of straw yellow colored fluid was removed. The patient tolerated the procedure well left the department in satisfactory condi tion. IMPRESSION: Successful ultrasound-guided paracentesis COMMENT: Patient medication list reviewed: Yes- Quality ID# [id number]:Eligible professional attests to doc umenting in the medical record they obtained, updated, or reviewed the patient's current medications. TECHNICAL DOCUMENTATION: JOB ID: [id number] [employer]- All Rights Reserved Reading location - IP/workstation name: [facility]
[2018-01-12] MEDS ORDERED: OXYCODONE HCL IR 5 MG TABLET ONE (15:40)
[2018-01-12] MEDS ORDERED: ALBUMIN HUMAN 100 ML IV PRN (15:40)
[2018-01-12] MEDS ORDERED: OXYCODONE HCL IR 5 MG TABLET PO ONE (16:00)
[2018-01-12 17:05] VITALS: BP 99/40
== END 2018-01-12 17:00 ==
LOC: RAD 10:52
PROVIDERS: ATTEND Internal Medicine Gastroenterology
DX: K70.31 Alcoholic cirrhosis of liver with ascites (principal); N18.6 End stage renal disease
CPT/HCPCS: 36415; 84520; 82565; 85027; 85610; 85730; 49083; P9047; J3490 ×2

== ENCOUNTER 2018-01-16 15:15 | Emergency (ER) | payer MEDICAID ==
[2018-01-16 16:13] LABS: ABSOLUTE LYMPHOCYTES (AUTO) 0.3 10^3/uL (0.5-4.7); ABSOLUTE MONOCYTES (AUTO) 0.8 10^3/uL (0.1-1.4); ABSOLUTE NEUT (AUTO) 4.2 10^3/uL (1.7-8.2); BASOPHILS % (AUTO) 0.2 % (0-2); EOSINOPHILS % (AUTO) 0.6 % (0-6); HEMATOCRIT 34.4 % (37.9-51.0); HEMOGLOBIN 11.2 g/dL (13.5-17.0); LYMPHOCYTES % (AUTO) 5.9 % (13-45); MEAN CORPUSCULAR HEMOGLOBIN 29.8 pg (27.0-33.4); MEAN CORPUSCULAR HGB CONC 32.5 g/dL (32.0-36.0); MEAN CORPUSCULAR VOLUME 92 fl (80-97); MONOCYTES % (AUTO) 14.6 % (3-13); RED BLOOD COUNT 3.75 10^6/uL (4.35-5.55); RED CELL DISTRIBUTION WIDTH 23.1 % (11.5-14.0); SEGMENTED NEUTROPHILS % (AUTO) 78.7 % (42-78); TOTAL CELLS COUNTED % (AUTO) 100 %; WHITE BLOOD COUNT 5.3 10^3/uL (4.0-10.5)
[2018-01-16 16:22] LABS: INTERNATIONAL RATION (INR) 1.39; PROTHROMBIN TIME 17.7 SEC (11.4-15.4)
[2018-01-16 16:23] LABS: PARTIAL THROMBOPLASTIN TIME 33.4 SEC (23.5-35.8)
--- NOTE | 2018-01-16 16:45 | ER Document Report ---
ED GI Bleed / Rectal Pain <NORMAMADDISON - Last Filed: 01/16/18 22:29> - General Mode of Arrival: Medic Information source: Patient TRAVEL OUTSIDE OF THE [place] IN LAST 30 DAYS: No - HPI Patient complains to provider of: Rectal pain <ERWIN ALVAREZ - Last Filed: 01/17/18 07:11> - General Stated Complaint: RECTAL PAIN Time Seen by Provider: 01/16/18 15:26 - HPI Notes: Patient is here with complaints of rectal pain. The patient has a history of rectal cancer. He was seen here within the last week due to rectal pain secondary to perennial rash due to diarrhea from lactulose. States that the rash has significantly improved, but his rectal pain seems to be getting worse. No fever. He denies any recent diarrhea. He denies any vomiting. He denies any abdominal pain. No nausea, vomiting, diarrhea. No chest pain or difficulty breathing. States that has not been able to finish his dialysis because he is having too much pain in his rectum to sit in the chair. No other complaints at this time. (ERWIN ALVAREZ) - Related Data Allergies/Adverse Reactions: povidone-iodine [From Betadine] Allergy (Verified 11/20/17 11:18) soap [From Betadine] Allergy (Verified 11/20/17 11:18) Penicillins Adverse Reaction (Verified 11/20/17 11:18) "some kind of dialysis filter" Allergy (Uncoded 11/20/17 11:18) Past Medical History - Social History Smoking Status: Unknown if Ever Smoked Family History: CAD, DM, Malignancy - Past Medical History Cardiac Medical History: Reports: Hx Heart Murmur Denies: Hx Coronary Artery Disease, Hx Heart Attack, Hx Hypertension Pulmonary Medical History: Reports: Hx Asthma - A CHILD, Hx Pneumonia - 2015 Denies: Hx Bronchitis, Hx COPD Neurological Medical History: Denies: Hx Cerebrovascular Accident, Hx Seizures Renal/ Medical History: Reports: Hx End Stage Renal Disease, Hx Hemodialysis. Denies: Hx Peritoneal Dialysis GI Medical History: Reports: Hx Cirrhosis, Hx Liver Failure Musculoskeltal Medical History: Reports Hx Arthritis Past Surgical History: Reports: Hx Herniorrhaphy - Umbilical herniorrhaphy, right inguinal herniorrhaphy, Hx Vascular Surgery - left fistula - Immunizations Hx Diphtheria, Pertussis, Tetanus Vaccination: Yes Hx Pneumococcal Vaccination: 05/26/16 <ERWIN ALVAREZ - Last Filed: 01/17/18 07:11> Review of Systems - Review of Systems -: Yes All other systems reviewed and negative <ERWIN ALVAREZ - Last Filed: 01/17/18 07:11> Physical Exam <MADDISON GREEN - Last Filed: 01/16/18 22:29> <ERWIN ALVAREZ - Last Filed: 01/17/18 07:11> - Vital signs Vitals: Temp Pulse Resp BP Pulse Ox 97.8 F 96 20 105/44 L 100 01/16/18 15:20 01/16/18 15:20 01/16/18 15:20 01/16/18 15:20 01/16/18 15:20 - Notes Notes: GENERAL: alert, cooperative, nontoxic, no distress. HEAD: normocephalic, atraumatic EYES: conjunctiva pink without discharge, no external redness or swelling. EARS: no external swelling, no external redness NOSE: atraumatic, no external swelling MOUTH/THROAT: mucous membranes moist and pink, posterior pharynx without erythema, swelling, exudate. No trismus or drooling. NECK: soft, supple, full range of motion, no meningismus. CHEST: no distress, lungs clear and equal throughout. No wheezing, rales, rhonchi. CARDIAC: regular rate and rhythm, systolic murmur, normal capillary refill, normal pulses. No peripheral edema noted. ABDOMEN: Soft, nontender. BACK: full range of motion, no CVA tenderness. EXTREMITIES: full range of motion of all extremities. No redness, no swelling. NEURO: alert and oriented x 3, no focal deficits, full range of motion of all extremities. PYSCH: appropriate mood, affect. Patient is cooperative. SKIN: pink, warm, dry, no rash. RECTAL: Moderate pain to rectal exam. Mucousy stool light brown and red in color. No rectal abscess. (ERWIN ALVAREZ) Course - Laboratory Result Diagrams: 01/16/18 16:00 01/16/18 17:08 - Diagnostic Test Radiology reviewed: Image reviewed, Reports reviewed <MADDISON GREEN - Last Filed: 01/16/18 22:29> - Laboratory Result Diagrams: 01/16/18 16:00 01/16/18 17:08 <ERWIN ALVAREZ - Last Filed: 01/17/18 07:11> - Re-evaluation Re-evalutation: 01/16/18 22:25 CT of the abdomen and pelvis with IV and p.o. contrast was ordered. Patient's alerted nursing staff and he is not due for dialysis until . Discussed with Dr. Leija who suggested only p.o. contrast. Reviewed imaging without any evidence of abscess, concern for obstruction. CT does show evidence of persistent left pleural effusion which is noted on previous imaging. Patient at this time vital signs are stable without tachycardia, hypoxia. Patient clinically without any shortness of breath, dyspnea. Patient states other than his rectal discomfort he feels well and agreeable to go back to his facility to follow-up with dialysis. (MADDISON GREEN) 01/16/18 19:23 This point the patient is nontoxic appearing with stable vitals. His lab work is all stable when compared with previous lab evaluation. The patient is here with worsening rectal pain. He does have some excoriated skin and rectal tenderness on exam. I do not appreciate a focal area of fluctuance or obvious abscess on exam. Due to the fact that he is having worsening pain, a CT of the abdomen and pelvis with IV and p.o. contrast has been ordered. This point the CT is pending. If the patient's CT shows an acute findings requiring attention , this will be addressed appropriately by Maddison who is taking over his care at this time. If the CT shows no significant findings that need addressed acutely, the patient will be transferred back to his nursing facility and can undergo dialysis as scheduled and [place] tomorrow. Given checkout to the oncoming provider who met the patient and will continue to observe the patient until CT has been performed. (ERWIN ALVAREZ) - Vital Signs Vital signs: Temp Pulse Resp BP Pulse Ox 97.8 F 96 14 94/46 L 98 01/16/18 15:20 01/16/18 15:20 01/17/18 02:30 01/17/18 02:52 01/17/18 00:01 - Laboratory Laboratory results interpreted by me: 01/16/18 01/16/18 01/16/18 16:00 16:00 17:08 RBC 3.75 L Hgb 11.2 L Hct 34.4 L RDW 23.1 H Plt Count 72 L Seg Neutrophils % 78.7 H Lymphocytes % 5.9 L Monocytes % 14.6 H Absolute Lymphocytes 0.3 L PT 17.7 H Sodium 134.7 L BUN 22 H Creatinine 4.33 H Est GFR ( Amer) 17 L Est GFR (Non-Af Amer) 14 L Calcium 8.1 L Total Bilirubin 4.1 H Direct Bilirubin 2.5 H ALT 19 L Alkaline Phosphatase 157 H Total Protein 6.1 L Albumin 2.2 L Discharge <MADDISON GREEN - Last Filed: 01/16/18 22:29> <ERWIN ALVAREZ - Last Filed: 01/17/18 07:11> - Discharge Clinical Impression: Rectal pain, Rash of perineum Condition: Stable Disposition: HOME, SELF-CARE Additional Instructions: Your presentation today does not show any evidence of infection or obstruction of the rectum. Your rectal pain is likely related to your constipation and likely underlying anal fissure. Please follow-up with your game operator as scheduled on . Please return to the emergency department for any worsening shortness of breath, difficulty breathing, abdominal pain. Referrals: MILADY TOURE MD [Primary Care Provider] - Follow up in 3-5 days
[2018-01-16 17:07] LABS: BURR CELLS 2+; PLATELET COMMENT DECREASED; PLATELET COUNT 72 10^3/uL (150-450); PLATELET GIANT PRESENT; PLATELET LARGE PRESENT; POIKILOCYTOSIS 2+
[2018-01-16 17:08] LABS: ANISOCYTOSIS 3+; HYPOCHROMASIA 1+; OVALOCYTES SLIGHT; POLYCHROMASIA 1+; ROULEAUX 1+; SCHISTOCYTES SLIGHT
[2018-01-16] MEDS ORDERED: NORMAL SALINE 1000 ML 250 ML IV ONE (17:14)
[2018-01-16] MEDS ORDERED: HYDROMORPHONE HCL INJ/PF 2 MG/ML AMPULE IV ONE (17:14)
[2018-01-16] MEDS ORDERED: ONDANSETRON HCL INJ/PF 4 MG/2 ML SDV IV ONE (17:14)
[2018-01-16 17:40] LABS: ALANINE AMINOTRANSFERASE 19 U/L (21-72); ALBUMIN 2.2 g/dL (3.5-5.0); ALKALINE PHOSPHATASE 157 U/L (38-126); ANION GAP 11 (5-19); ASPARTATE AMINO TRANSFERASE 26 U/L (17-59); BILIRUBIN,DIRECT 2.5 mg/dL (0.0-0.4); BILIRUBIN,TOTAL 4.1 mg/dL (0.2-1.3); BLOOD UREA NITROGEN 22 mg/dL (7-20); CALCIUM 8.1 mg/dL (8.4-10.2); CARBON DIOXIDE 26 mmol/L (22-30); CHLORIDE 98 mmol/L (98-107); GLUCOSE 100 mg/dL (75-110); POTASSIUM 4.2 mmol/L (3.6-5.0); SODIUM 134.7 mmol/L (137-145); TOTAL PROTEIN 6.1 g/dL (6.3-8.2)
[2018-01-16] MEDS ORDERED: MORPHINE SULFATE 10 MG/ML INJ IV ONE (19:47)
--- NOTE | 2018-01-16 21:00 | RADIOLOGY REPORT (SQ) ---
EXAM DESCRIPTION: CT ABD/PELVIS ORAL ONLY COMPLETED DATE/TIME: 01/16/2018 8:44 pm REASON FOR STUDY: rectal pain, ? abscess COMPARISON: 12/23/2017 TECHNIQUE: CT scan of the abdomen and pelvis performed without intravenous or oral contrast. Images reviewed with lung, soft tissue, and bone windows. Reconstructed coronal and sagittal MPR images revi ewed. All images stored on PACS. All CT scanners at this facility use dose modulation, iterative reconstruction, and/or weight based d osing when appropriate to reduce radiation dose to as low as reasonably achievable (ALARA). [facility]: Dose Right [facility]: CareDose [facility]: Dose Right [facility]: Teradose 4D [facility]: [employer] RADIATION DOSE: CT Rad equipment meets quality standard of care and radiation dose reduction techniq ues were employed. CTDIvol: 10.3 mGy. DLP: 622 mGy-cm.mGy. LIMITATIONS: None. FINDINGS: LOWER CHEST: Left pleural effusion. Subsegmental atelectasis in the left base. Irregular pleural thickening on the left laterally images 1-5. NON-CONTRASTED LIVER, SPLEEN, ADRENALS: The liver is small. The spleen is prominent. No adrenal mas s is present. PANCREAS: No masses. No peripancreatic inflammatory changes. GALLBLADDER: A small gallstone is present. RIGHT KIDNEY AND URETER: The kidney is small. There is perinephric stranding. No significant calci fications. No hydronephrosis or hydroureter. LEFT KIDNEY AND URETER: The kidney is small. There is perinephric stranding. No significant calcif ications. No hydronephrosis or hydroureter. AORTA AND RETROPERITONEUM: No aneurysm. No retroperitoneal masses or adenopathy. BOWEL AND PERITONEAL CAVITY: No masses or inflammatory changes. There is a large amount of ascites. APPENDIX: Not identified. PELVIS, BLADDER, AND ABDOMINAL WALL:Evaluation of the pelvis is limited because of beam hardening art ifact from a left hip arthroplasty. No obvious abscess is present BONES: Left hip arthroplasty. Chronic compression changes in the lower thoracic and in the lumbar sp ine. OTHER: No other significant finding. IMPRESSION: 1. Left pleural effusion with subsegmental atelectasis in the left lower lobe and linea r irregular pleural thickening in the left base laterally. 2. Cholelithiasis. 3. Cirrhosis of the liver. 4. There is large amount of ascites. 5. No abscess is appreciated. Evaluation of the pelvis is somewhat limited. COMMENT: Quality ID # [id number]: Final reports with documentation of one or more dose reduction techniques (e.g., Automated exposure control, adjustment of the mA and/or kV according to patient size, use of iterative reconstruction technique) TECHNICAL DOCUMENTATION: JOB ID: [id number] [employer]- All Rights Reserved Reading location - IP/workstation name: [email or web address]
[2018-01-17 02:52] VITALS: BP 94/46
== END 2018-01-17 02:52 | disposition home or self-care (01) ==
LOC: ER 15:15
DX: K62.89 Other specified diseases of anus and rectum (principal); R21 Rash and other nonspecific skin eruption; N18.6 End stage renal disease; Z99.2 Dependence on renal dialysis; Z85.048 Personal history of other malignant neoplasm of rectum, rectosigmoid junction, and anus
CPT/HCPCS: 99284; 96361; 96374; 96375; 36415; 85025; 85610; 85730; 82272; 80053; 74176; J2270; J1170; J2405; J7030